=== PATIENT | male | born 1955 | race Two or more races ===

== ENCOUNTER 2021-11-10 14:06 | Emergency (ER) | payer MEDICARE, SELFPAY ==
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
[2021-11-10 14:33] VITALS: BP 132/91; PULSE 94; RESP 18; TEMP 36.8; O2SAT 97; BMI 36.8
[2021-11-10] MEDS: Acetaminophen 325 MG TABLET 975 MG PO (15:27)
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
[2021-11-10] MEDS: Cyclobenzaprine HCl 10 MG TABLET PO (16:40)
== END 2021-11-10 17:35 | disposition home or self-care (01) ==
PROVIDERS: Emergency Provider Student in an Organized Health Care Education/Training Program; PCP Internal Medicine
DX: M54.50 Low back pain, unspecified (principal); M54.6 Pain in thoracic spine; R07.81 Pleurodynia; Z79.899 Other long term (current) drug therapy
CPT/HCPCS: 71101; 99283

== ENCOUNTER 2022-11-07 08:52 | Emergency (ER) | payer OTHER, SELFPAY ==
--- NOTE | ~2022-11-07 | XR_ITS ---
EXAMINATION: XR CHEST CLINICAL INFORMATION: Chest pain COMPARISON: None available. TECHNIQUE: 2 views of the chest were obtained. FINDINGS: No significant abnormality is noted involving the heart, lungs, mediastinum, bony thorax or soft tissues. XR/XR chest 2V IMPRESSION: Unremarkable chest examination.
--- NOTE | 2022-11-07 08:55 | ECG_ITS ---
Test Reason : CP Blood Pressure : / mmHG Vent. Rate : 083 BPM Atrial Rate : 083 BPM P-R Int : 160 ms QRS Dur : 084 ms QT Int : 402 ms P-R-T Axes : 042 -43 057 degrees QTc Int : 472 ms Poor data quality, interpretation may be adversely affected Normal sinus rhythm Left axis deviation Abnormal ECG When compared with ECG of 25-AUG-2012 04:22, No significant change was found Referred By: Generic ED Physician Electronically Signed By:TOMMY LAWSON
[2022-11-07 09:05] VITALS: BP 134/86; PULSE 85; RESP 18; TEMP 36.6; O2SAT 98; BMI 33.2
--- NOTE | 2022-11-07 09:19 | ECG_ITS ---
Test Reason : CP Blood Pressure : / mmHG Vent. Rate : 078 BPM Atrial Rate : 078 BPM P-R Int : 172 ms QRS Dur : 090 ms QT Int : 406 ms P-R-T Axes : 048 -38 048 degrees QTc Int : 462 ms Normal sinus rhythm Left axis deviation Abnormal ECG When compared with ECG of 07-NOV-2022 08:57, No significant change was found Referred By: Generic ED Physician Electronically Signed By:TOMMY LAWSON
--- NOTE | 2022-11-07 09:25 | ED_ITS ---
HPI - Chest Pain General Chief Complaint: Chest Pain Stated Complaint: chest pain Time Seen by Provider: 11/07/22 09:21 Source: patient and certified court interpreter Mode of arrival: ambulatory Limitations: no limitations History of Present Illness HPI narrative: 67 yo Armenian speaking male with history of HLD, anxiety, and asthma who presents to the ER for evaluation of intermittent, nonradiating substernal chest pressure that started this morning when he woke up at 5am. He states the pains come and go and he has been nauseated this morning, no vomiting. He denies associated SOB or diaphoresis. He states the pain is pressure like. He has not had pain like this before. History of normal cardiac catheterization back in the . He is nonsmoker, no hx DM. He states he currently has no chest pain but he is anxious. He is tearful. He last took his klonopin and doxepin yesterday. MD complaint: other (chest pressure and anxiety) Pertinent past history: asthma Onset (ago): hour(s) (4-5) Timing of current episode: episodic Prior episodes: No Onset: during rest Pain location: substernal Pain radiation: none Severity: moderate Quality: heaviness Relieving factors: nothing Context: other (anxiety) Associated symptoms: nausea and other (anxiety) Treatment prior to arrival: none Risk Factors Coronary artery disease risk factors: hyperlipidemia Thoracic aortic dissection risk factors: none Related Data Previous Rx's Medication Instructions Recorded acetaminophen 500 mg tablet 500 mg PO Q6H PRN fever or pain 11/10/21 (Tylenol Extra Strength) #14 tabs cyclobenzaprine 5 mg tablet 5 mg PO Q8H PRN pain (scale score 11/10/21 7-10) 5 days #14 tabs ibuprofen 800 mg tablet 800 mg PO Q8H PRN pain #14 tabs 11/10/21 lidocaine 5 % topical patch 1 patch topical DAILY PRN pain #30 11/10/21 (Lidoderm) ea tramadol 50 mg tablet 50 mg PO Q8H PRN pain, severe #7 11/10/21 tabs Allergies Allergy/AdvReac Type Severity Reaction Status Date / Time No Known Allergies Allergy Verified 11/07/22 09:05 Review of Systems Review of Systems: Yes all other systems are reviewed and are negative PMFSH Social History Social History Advance Directives: Yes Advance Directives on File: No Physical Exam Vital Signs: Vital Signs: Last Vital Signs Temp 98 F 11/07/22 09:05 Pulse 87 11/07/22 10:28 Resp 16 11/07/22 10:28 BP 131/79 11/07/22 10:28 Pulse Ox 96 11/07/22 10:28 O2 Del Method Room Air 11/07/22 10:28 BMI result Body Mass Index 33.2 Appearance: Alert. Oriented X3. No acute distress. Head: normocephalic, atraumatic. Eyes: Pupils equal, round and reactive to light. ENT: Pharynx normal. No tonsillar swelling or exudate. Neck: Normal inspection. Neck supple. CVS: Normal heart rate and rhythm. Pulses normal. Respiratory: No respiratory distress. Breath sounds normal. Abdomen: Soft and nontender. +BS x4 Skin: Skin warm and dry. Normal skin color. Normal skin turgor. No rashes. Extremities: No lower extremity edema. No joint swelling. No calf tenderness. Neuro/psych: Oriented X 3. No motor deficit. No sensory deficit. CN II-XII intact. Normal speech and cognition. Tearful, reporting anxiety Course Reevaluation(s) Reevaluation #1: Patient feeling much better and wants to go home. He does not want to wait for a 2nd troponin. he has been chest pain free in the ER and is feeling better after ativan. his heart score is 3 Comfortable w/ d/c home with plan for outpatient cardiac workup. he will call to arrange. strict return precautions were discussed Time: 10:44 Medications Administered Discontinued Medications Generic Name Dose Route Start Last Admin Trade Name Leeq PRN Reason Stop Dose Admin Lorazepam 1 mg 11/07/22 09:45 11/07/22 10:32 Lorazepam 1 Mg Tablet PO 11/07/22 09:46 1 mg ONCE ONE Administration Medical Decision Making Medical Decision Making MDM Narrative: 67 yo Armenian speaking male with history of HLD, anxiety, and asthma who presents to the ER for evaluation of intermittent, nonradiating substernal chest pressure that started this morning when he woke up at 5am. On arrival to the ER his vital signs are stable and he is chest pain-free. Hears tearful and anxious. He did not take his Klonopin today. His EKG was reviewed with no obvious ischemic changes. His lab workup was unremarkable. He is pending 2nd troponin however patient feels much better after a dose of Ativan and would like to go home. He understands staying for a 2nd troponin is ideal but defers. He states he will follow-up with cardiology as an outpatient. He states he will return to the ER if chest pain returns or feels worse. Comfortable discharge home. diplomatic interpreter/translator used discussed strict return precautions and importance of outpatient follow-up Differential Diagnosis Differential Diagnoses: The differential diagnosis associated with the presentation includes anxiety, ACS, PE, myocarditis, pericarditis, costochondritis, PNA Admission/Observation Consideration of admission/observation: Escalation of care including admis constantine/observation considered Considered observation this patient with HLD, obesity and chest pain. Lab Data MDM Lab Attestation statement: I reviewed the patient's lab results. negative troponin, normal CBC and renal function 11/07/22 09:21 11/07/22 09:21 Labs: Lab Results 11/07/22 11/07/22 11/07/22 Range/Units 09:21 09:21 09:21 WBC 5.1 (4.8-10.8) X10*3/uL RBC 4.64 (4.60-5.80) X10*6/uL Hgb 15.2 (14.0-18.0) g/dl Hct 44.5 (42.0-52.0) % MCV 95.9 (80.0-98.0) fL MCH 32.8 (27.0-33.0) pg MCHC 34.2 (31.0-36.0) g/dl RDW 13.5 (11.0-16.0) % Plt Count 260 (160-400) X10*3/uL MPV 9.9 (9.4-12.4) fL Immature Gran % (Auto) 0.2 (0.0-0.4) % Neut % (Auto) 52.6 (45-73) % Lymph % (Auto) 25.4 (20-40) % [place] % (Auto) 12.0 H (2-11) % Eos % (Auto) 9.4 H (0-4) % Baso % (Auto) 0.4 (0-2) % Lymph # (Auto) 1.3 (1.2-4.9) X10*3/uL [place] # (Auto) 0.6 (0.1-1.2) X10*3/uL Eos # (Auto) 0.5 H (0.0-0.4) X10*3/uL Baso # (Auto) 0.0 (0.0-0.2) X10*3/uL Abs Immat Gran (auto) 0.01 (0.00-0.03) X10*3/uL Absolute Neuts (auto) 2.7 (2.0-8.3) x10*3/uL Absolute Nucleated RBC 0.000 (0.0-0.012) X10*3/uL Nucleated RBC % (auto) 0.0 (0.0-0.2) /100WBC Sodium 141 (135-145) mmol/L Potassium 4.1 (3.3-5.1) mmol/L Chloride 107 (96-108) mmol/L Carbon Dioxide 26 (22-29) mmol/L Anion Gap 12 (12-20) BUN 11 (9-16) mg/dL Creatinine 1.02 (0.5-1.4) mg/dL Estim Creat Clear Calc 77.6 Estimated GFR > 60 Random Glucose 102 (60-115) mg/dL Calcium 9.1 (8.4-10.2) mg/dL Troponin I High Sens < 2.7 (<3.5-35.0) ng/L Independent Interpretation I performed an independent interpretation of an: EKG and Plain X-Ray Interpretation: ekg @ 09:29 - nromal sinus rhythm, HR 78 bpm, normal MD interval, normal QTc,no ST segment elevations or depressions cxr with clear lungs, agree w/ radiology Radiology Impression Discussion of test interpretation with radiology: I have reviewed the radiologist's reading. Radiologist Impression: XR/XR chest 2V IMPRESSION: Unremarkable chest examination. Independent Historian Clinical information obtained from an independent historian. History obtained from or confirmed by: Spouse External Record Review External record reviewed: Outpatient record, Prior outpatient labs and Prior outpatient radiology Chronic Conditions Patient?s care impacted by: Other (anxiety) Scores Heart Score History: -0- slightly suspicious ECG: -0- normal Age: -2- > or = 65 Risk factory: -1- 1 or 2 risk factors Troponin: -0- < or = normal limit Score: 3 Risk: 1.7% Critical Care Time Critical Care Time Critical Care Time: No Discharge Plan Discharge Clinical Impression: Chest pain, Anxiety Patient Disposition: Home, Self-Care Instructions: Chest Pain (DC), Anxiety (ED) Additional Instructions: Your lab work and EKG today were unremarkable. Your chest x-ray was normal. It was encouraged for your to stay for repeat your heart enzyme level but you declined. Recommend following up with your doctor as well as Cardiology. Call for an appo intment. If you develop new or worsening symptoms call 911 or come back to the ER for further evaluation. Goldstein trabajo de laboratorio y goldstein electrocardiograma de hoy fueron normales. Goldstein radiograf?a de t?rax fue normal. Se le alent? a que se quedara para repetir goldstein nivel de enzimas card?acas, adarsh se neg?. Recomiende seguimiento con goldstein m?dico as? hollie con Cardiolog?a. Llame para ruth cydney. Si desarrolla s?ntomas nuevos o que empeoran, llame al 911 o regrese a la micah de emergencias para ruth evaluaci?n adicional. Prescriptions: No Action cyclobenzaprine 5 mg tablet 5 mg PO Q8H PRN (Reason: pain (scale score 7-10)) 5 Days Qty: 14 0RF ibuprofen 800 mg tablet 800 mg PO Q8H PRN (Reason: pain) Qty: 14 0RF lidocaine [Lidoderm] 5 % adhesive patch,medicated 1 patch topical DAILY MDD remove after 12 hours PRN (Reason: pain) Qty: 30 0RF Rx Instructions: leave on most painful area for up to 12 hrs tramadol 50 mg tablet 50 mg PO Q8H PRN (Reason: pain, severe) Qty: 7 0RF acetaminophen [Tylenol Extra Strength] 500 mg tablet 500 mg PO Q6H PRN (Reason: fever or pain) Qty: 14 0RF Referrals: [facility] [Provider Group] (chest pain) Print Language: Armenian
[2022-11-07 09:31] LABS: MANUAL DIFF FLAG NO
[2022-11-07 09:33] LABS: Basophils Percent Auto 0.4 % (0-2); Eosinophils Absolute Auto 0.5 X10*3/uL (0.0-0.4); Eosinophils Percent Auto 9.4 % (0-4); Hematocrit 44.5 % (42.0-52.0); Hemoglobin 15.2 g/dl (14.0-18.0); Imm Gran Abs Auto 0.01 X10*3/uL (0.00-0.03); Imm Gran Pct Auto 0.2 % (0.0-0.4); Lymphocytes Absolute Auto 1.3 X10*3/uL (1.2-4.9); Lymphocytes Percent Auto 25.4 % (20-40); Mean Corpuscular HGB Conc 34.2 g/dl (31.0-36.0); Mean Corpuscular Hemoglobin 32.8 pg (27.0-33.0); Mean Corpuscular Volume 95.9 fL (80.0-98.0); Mean Platelet Volume 9.9 fL (9.4-12.4); Monocytes Absolute Auto 0.6 X10*3/uL (0.1-1.2); Neutrophils Absolute Auto 2.7 x10*3/uL (2.0-8.3); Neutrophils Percent Auto 52.6 % (45-73); Platelet Count 260 X10*3/uL (160-400); Red Blood Count 4.64 X10*6/uL (4.60-5.80); Red Cell Distribution Width 13.5 % (11.0-16.0); White Blood Count 5.1 X10*3/uL (4.8-10.8)
[2022-11-07 09:45] LABS: Anion Gap 12 (12-20); Blood Urea Nitrogen 11 mg/dL (9-16); Calcium 9.1 mg/dL (8.4-10.2); Carbon Dioxide 26 mmol/L (22-29); Chloride 107 mmol/L (96-108); Creatinine Clr Calc Pharmacy 77.6; Estimated Glomerular Filt Rate > 60; Glucose Random 102 mg/dL (60-115); Potassium 4.1 mmol/L (3.3-5.1); Sodium 141 mmol/L (135-145)
[2022-11-07 09:55] LABS: Troponin-I High Sensitivity < 2.7 ng/L (<3.5-35.0)
[2022-11-07 10:28] VITALS: BP 131/79; PULSE 87; RESP 16; O2SAT 96
[2022-11-07] MEDS: LORazepam 1 MG TABLET PO (10:32)
== END 2022-11-07 10:52 | disposition home or self-care (01) ==
PROVIDERS: Emergency Provider Student in an Organized Health Care Education/Training Program
DX: R07.9 Chest pain, unspecified (principal); F41.9 Anxiety disorder, unspecified; E78.5 Hyperlipidemia, unspecified; Z79.899 Other long term (current) drug therapy
CPT/HCPCS: 36415; 71046; 80048; 84484; 85025; 93005; 99283; 99284

== ENCOUNTER 2022-11-21 10:46 | Emergency (ER) | payer OTHER, SELFPAY ==
[2022-11-21 10:49] VITALS: BP 129/76; PULSE 100; RESP 18; TEMP 36.2; O2SAT 100; BMI 33.2
--- NOTE | 2022-11-21 12:36 | ED.GENADULT ---
HPI - General Adult General Chief complaint: Back Pain/Injury Stated complaint: R flank pain Time Seen by Provider: 11/21/22 11:20 Source: patient Mode of arrival: ambulatory Limitations: no limitations History of Present Illness HPI narrative: Patient is a 67-year-old male with complaint of right flank pain for 1 week, worse with movement. Denies any falls, injury or other trauma. Denies any radiation of pain to his legs. Does report some urinary frequency, denies dysuria or hematuria. Denies fevers. Any numbness or tingling to his legs. Denies any saddle anesthesia or bowel or bladder incontinence. Has been using naproxen with little relief. Denies any abdominal pain, nausea, vomiting, diarrhea, or constipation. Denies any cough, shortness of breath, chest pain. Denies any calf pain or swelling. Denies any hemoptysis. Denies recent surgery or immobilization. MD complaint: Right flank pain Onset (ago): day(s) Location: back Radiation: non-radiation Severity: severe Quality: aching and dull Pain Consistency: constant Relieving factors: rest Exacerbating factors: movement Associated symptoms: other (Urinary frequency) Treatments prior to arrival: NSAID Related Data Previous Rx's Medication Instructions Recorded acetaminophen 500 mg tablet 500 mg PO Q6H PRN fever or pain 11/10/21 (Tylenol Extra Strength) #14 tabs cyclobenzaprine 5 mg tablet 5 mg PO Q8H PRN pain (scale score 11/10/21 7-10) 5 days #14 tabs ibuprofen 800 mg tablet 800 mg PO Q8H PRN pain #14 tabs 11/10/21 lidocaine 5 % topical patch 1 patch topical DAILY PRN pain #30 11/10/21 (Lidoderm) ea tramadol 50 mg tablet 50 mg PO Q8H PRN pain, severe #7 11/10/21 tabs cyclobenzaprine 5 mg tablet 5 mg PO TID PRN muscle spasm #12 11/21/22 tabs Allergies Allergy/AdvReac Type Severity Reaction Status Date / Time No Known Allergies Allergy Verified 11/21/22 10:49 Review of Systems Review of Systems: As per HPI. Yes all other systems are reviewed and are negative Constitutional: Constitutional: Reports as per HPI [facility] Social History Social History Advance Directives: No Advance Directives Information Provided: No Physical Exam ED Vital Signs: Vital Signs - 24 hr 11/21/22 10:49 Temperature 97.1 F Pulse Rate 100 Respiratory Rate 18 Blood Pressure 129/76 Pulse Oximetry 100 Oxygen Delivery Method Room Air BMI result Body Mass Index 33.2 Vital signs have been reviewed and appear to be correct. Blood pressure normal. Heart rate normal. Respiratory rate normal. Temperature normal. Oxygen saturation normal. Const General: cooperative, healthy appearing and no acute distress Orientation/consciousness: oriented to person, oriented to place, oriented to time and patient oriented x3 Limitations: no limitations HENMT Head: Yes normocephalic and Yes atraumatic Ears: external ears normal General nose exam: Normal external nose present Face and sinus: Yes face symmetric Mouth: oropharynx normal and moist mucous membranes Throat: Yes uvula midline Eyes Pupils: Equal, round and reactive pupils present Neck Neck: Yes normal visual inspection and Yes supple Resp Effort & Inspection: normal respiratory effort and able to speak in complete sentences Auscultation: clear to auscultation bilaterally Cardio Rate: regular rate Rhythm: regular rhythm Heart sounds: S1 normal heart sound present and S2 normal heart sound present GI Inspection: Yes normal to inspection Palpation (GI): Soft to palpation, nontender, no guarding and No Rebound tenderness present Auscultation: normoactive bowel sounds General: Yes CVA tenderness on the right Back/Spine/Pelvis Back: CVA tenderness Thoracic/Lumbar Spine: thoracic and lumbar spine normal to inspection, thoraco-lumbar ROM normal, pain with thoraco-lumbar ROM and paraspinal muscle tenderness on the right in the mid thoracic Pelvis: no pain with anterior-posterior compression and no pain with lateral compression Skin General skin exam: elasticity normal and turgor normal Neuro General: oriented to person, oriented to place, oriented to time, patient oriented x3, moves all extremities, no focal motor deficits and CN's II-XI intact bilaterally Cranial nerves: Yes Equal, round and reactive pupils present Cognition (Neuro): normal cognition Extrem General: Yes full ROM, Yes no pedal edema and Yes no calf tenderness Psych Mental Status: mental status grossly normal Affect: normal affect Thought process: Normal thought process present Medical Decision Making Medical Decision Making MDM Narrative: Patient is a 67-year-old male with complaint of right flank pain for 1 week, worse with movement. On exam patient is awake, A+Ox3, VS WNL, afebrile, normal neurological exam without focal deficits, R CVA tenderness as well as surrounding right sided paraspinal tenderness, full ROM, no midline tenderness. Given reported symptoms and physical exam findings, differential includes muscle strain, UTI/pyelonephritis. Unlikely fracture as patient denies any injury. Unlikely PE as Wells score is low risk. Unlikely epidural abscess, cord compression, cauda equina, osteomyelitis, malignancy or mass, herniated disc, AAA, retroperitoneal hemorrhage. No signs of infection on UA so unlikely UTI/pyelo. Given reported history and physical exam findings, feel symptoms are likely related to muscle strain, will discharge patient home with muscle relaxer, advised gentle stretching exercises, continue with NSAID. Instructed patient to follow-up with primary care provider. Return precautions discussed at bedside. Patient verbalized understanding of and agreement with plan. Differential Diagnosis Differential Diagnoses: The differential diagnosis associated with the presentation includes As above Lab Data MDM Lab Attestation statement: I reviewed the patient's lab results. No evidence of UTI or pyelonephritis on UA Labs: Lab Results 11/21/22 Range/Units 12:03 Urine Color Yellow Urine Appearance Clear Urine pH 7.5 (5.0-9.0) Ur Specific Bevier 1.015 (1.005-1.025) Urine Protein Negative (Neg-Trace) mg/dL Urine Glucose (UA) Negative (Negative) mg/dL Urine Ketones Negative (Negative) mg/dL Urine Blood Negative (Negative) Urine Nitrite Negative (Negative) Ur Leukocyte Esterase Negative (Negative) External Record Review External record reviewed: Inpatient record, Office record and Outpatient record Prescription Management I considered prescription management with: Other (Flexeril) Discharge Plan Discharge Clinical Impression: Strain of mid-back Patient Disposition: Home, Self-Care Instructions: Muscle Strain (DC), Lower Back Exercises (ED), Thoracic Back Strain (ED), Core Strengthening Exercises (ED) Additional Instructions: You have been evaluated in the emergency department today for right sided back pain. Your evaluation did not find evidence of medical conditions requiring emergent intervention at this time. Please rest, ice, and resume normal activities as tolerated. We recommend you take 600mg ibuprofen every 6 hours or 650mg Tylenol every 6 hours as needed for pain. If Needed you can alternate these medications as they take 1 medication every 3 hours. For instance at noon take ibuprofen, then at 3:00 p.m. take Tylenol, then at 6:00 p.m. take ibuprofen. You are also being prescribed a muscle relaxer for muscle spasms which you may take every 8 hours as needed. Please schedule an appointment for follow-up with your primary care provider this week. Return to the emergency department if you experience worsening pain, numbness, tingling, or any other concerning symptoms. Prescriptions: New cyclobenzaprine 5 mg tablet 5 mg PO TID PRN (Reason: muscle spasm) Qty: 12 0RF No Action cyclobenzaprine 5 mg tablet 5 mg PO Q8H PRN (Reason: pain (scale score 7-10)) 5 Days Qty: 14 0RF ibuprofen 800 mg tablet 800 mg PO Q8H PRN (Reason: pain) Qty: 14 0RF lidocaine [Lidoderm] 5 % adhesive patch,medicated 1 patch topical DAILY MDD remove after 12 hours PRN (Reason: pain) Qty: 30 0RF Rx Instructions: leave on most painful area for up to 12 hrs tramadol 50 mg tablet 50 mg PO Q8H PRN (Reason: pain, severe) Qty: 7 0RF acetaminophen [Tylenol Extra Strength] 500 mg tablet 500 mg PO Q6H PRN (Reason: fever or pain) Qty: 14 0RF
== END 2022-11-21 13:05 | disposition home or self-care (01) ==
PROVIDERS: Emergency Provider Emergency Medicine Emergency Medical Services; PCP Internal Medicine
DX: R10.9 Unspecified abdominal pain (principal); S39.012A Strain of muscle, fascia and tendon of lower back, initial encounter; X58.XXXA Exposure to other specified factors, initial encounter; Y93.9 Activity, unspecified; Y92.9 Unspecified place or not applicable; Y99.9 Unspecified external cause status
CPT/HCPCS: 81003; 99283

== ENCOUNTER 2022-12-13 07:51 | Emergency (ER) | payer OTHER, SELFPAY ==
--- NOTE | ~2022-12-13 | XR_ITS ---
EXAMINATION: XR ELBOW, LEFT CLINICAL INFORMATION: Abdominal pain COMPARISON: None available. TECHNIQUE: AP, lateral, and oblique views of the left elbow. FINDINGS: No acute visible fracture or dislocation. Degenerative arthropathy with punctate periarticular osteophyte along the medial condyle. Joint spaces and alignment are otherwise maintained. No large elbow joint effusion. Soft tissues are unremarkable. XR/XR elbow LT min 3V IMPRESSION: 1. No acute visible fracture or dislocation. 2. Degenerative arthropathy.
--- NOTE | ~2022-12-13 | XR_ITS ---
EXAMINATION: XR SHOULDER, LEFT CLINICAL INFORMATION: Left shoulder pain COMPARISON: Left shoulder radiograph from 05/21/2013 TECHNIQUE: Four views of the left shoulder. FINDINGS: No acute visible fracture or dislocation. Degenerative changes of the glenohumeral and acromioclavicular joints. Joint spaces and alignment are otherwise maintained. Soft tissues are unremarkable. Visualized portions of the left chest are unremarkable XR/XR shoulder LT min 2V IMPRESSION: 1. No acute visible fracture or dislocation. 2. Degenerative changes of the glenohumeral and acromioclavicular joints.
[2022-12-13 07:55] VITALS: BP 141/84; PULSE 84; RESP 14; TEMP 36.6; O2SAT 96
[2022-12-13 08:08] VITALS: BP 132/76; PULSE 86; RESP 16; TEMP 36.5; O2SAT 97; BMI 31.2
--- NOTE | 2022-12-13 08:10 | ED.GENADULT ---
HPI - General Adult General Chief complaint: Extremity Injury, Upper Stated complaint: L elbow pain Time Seen by Provider: 12/13/22 07:54 Source: patient Mode of arrival: ambulatory Limitations: no limitations History of Present Illness HPI narrative: patient is a 67-year-old male with no known medical history presenting to the emergency department for pain in his left elbow patient reports that he has a bump on his elbow that has been growing. Patient reports the bump has been there for few days. patient reports that hurts more when he moves his elbow, when he moves his 3rd 4th and 5th fingers on his left hand. Upon further questioning patient reports he also has some sharp pain on the anterior aspect of his left shoulder. Patient reports that this pain occurs for a few seconds multiple times a day percipitated by movment. Patient reports he has full range of motion. Patient denies fever, chills, headache, vision changes, nausea, vomiting, abdominal pain, numbness, tingling, blunt trauma Related Data Previous Rx's Medication Instructions Recorded acetaminophen 500 mg tablet 500 mg PO Q6H PRN fever or pain 11/10/21 (Tylenol Extra Strength) #14 tabs cyclobenzaprine 5 mg tablet 5 mg PO Q8H PRN pain (scale score 11/10/21 7-10) 5 days #14 tabs ibuprofen 800 mg tablet 800 mg PO Q8H PRN pain #14 tabs 11/10/21 lidocaine 5 % topical patch 1 patch topical DAILY PRN pain #30 11/10/21 (Lidoderm) ea tramadol 50 mg tablet 50 mg PO Q8H PRN pain, severe #7 11/10/21 tabs cyclobenzaprine 5 mg tablet 5 mg PO TID PRN muscle spasm #12 11/21/22 tabs naproxen 500 mg tablet 500 mg PO BID PRN pain #14 tabs 12/13/22 prednisone 20 mg tablet 20 mg PO DAILY 5 days #5 tabs 12/13/22 Allergies Allergy/AdvReac Type Severity Reaction Status Date / Time No Known Allergies Allergy Verified 11/21/22 10:49 Review of Systems Review of Systems: Constitutional : No Weight loss, No Fever, No Chills, No Fatigue, No Malaise ENT/Mouth : No sore throat, No Rhinorrhea Eyes: No Eye Pain, No Swelling, No Redness Cardiovascular : No Chest Pain, No SOB, No Dyspnea on Exertion, No Orthopnea, No Edema, No Palpitations Respiratory : No Cough, No Sputum, No Wheezing Gastrointestinal : No Nausea, No Vomiting, No Diarrhea, No Constipation, No abdominal Pain, No Hematochezia, No Melena Genitourinary : No Dysuria, No Urinary Frequency, No Hematuria, Musculoskeletal : + joint pain, No Myalgias, + Joint Swelling Skin : No Skin Lesions, No rash Neuro : No Weakness, No Numbness, No Dizziness, No Headache Psych : No Anxiety/Panic, No Depression Heme/Lymph: No Bruising, No Bleeding,No Lymphadenopathy Endocrine : No Polyuria, No Polydipsia All other systems reviewed and are negative Yes all other systems are reviewed and are negative [facility] Past Medical History Attestation statement: The following information was validated with the patient. Source: old records reviewed and nursing notes reviewed Social History Social History Alcohol intake: current Alcohol intake frequency: 0-2 drinks per day Alcohol type: beer Smoked in Last 30 Days: No Use of substances other than those prescribed or required for medical reasons: No Advance Directives: No Advance Directives Information Provided: No Physical Exam ED Vital Signs: Vital Signs - 24 hr 12/13/22 07:55 12/13/22 08:08 Temperature 97.9 F 97.7 F Pulse Rate 84 86 Respiratory Rate 14 16 Blood Pressure 141/84 H 132/76 Pulse Oximetry 96 97 Oxygen Delivery Method Room Air Room Air BMI result Body Mass Index 31.2 vss Appearance: Alert.? Oriented X3.? No acute distress.? Head: Normocephalic, atraumatic, no step-offs or deformities Eyes: Pupils equal, round and reactive to light.? Neck: Normal inspection.? Neck supple.? CVS: Normal heart rate and rhythm.? Pulses normal.? Respiratory: No respiratory distress.? Breath sounds normal.? Abdomen: Soft and nontender.? Skin: Skin warm and dry.? Normal skin color.? Normal skin turgor.? Extremities: 5/5 strength to bilateral upper and lower extremities + L elbow, ttp, no bump, nodule, mass or abscess appreciated. No effusion, errythema or warmth to elbows b/l. Full painless ROM b/l to elbow and shoulder. 2+ radial pulses equal and bilateral. No laxity or distracting injuries. Back: No midline tenderness, no C-spine tenderness, full range of motion, no CVA tenderness bilaterally Neuro: Oriented X 3.? No motor deficit.? No sensory deficit. CN 2-12 intact Course Reevaluation(s) Reevaluation #1: left shoulder with no acute fractures or dislocation degenerative changes noted to the glenohumeral in at acromioclavicular joint. Patient to be discharged home with prednisone, naproxen. Advised orthopedic follow-up. Educated patient on diagnosis and treatment plan, answered all question, patient verbalizes understanding. At this time patient will be discharged home, advised to return with new or worsening symptoms. Educated on worrisome signs and symptoms and when to return. At this time I feel comfortable discharge home. Time: 09:06 Medical Decision Making Medical Decision Making [facility] Narrative: 09 67 year old male presents w/ L elbow and shoulder pain for weeks worsening over the past few days PE - + L elbow, ttp, no bump, nodule, mass or abscess appreciated. No effusion, errythema or warmth to elbows b/l. Full painless ROM b/l to elbow and shoulder. 2+ radial pulses equal and bilateral. No laxity or distracting injuries. Concerns Inflammatory arthritis, gout. No signs of fracture, dislocation, septic joint, neurovascular compromise arterial venous occlusion. No signs of fracture dislocation. Plan imaging. Differential Diagnosis Differential Diagnoses: The differential diagnosis associated with the presentation includes Concerns Inflammatory arthritis, gout. No signs of fracture, dislocation, septic joint, neurovascular compromise arterial venous occlusion. No signs of fracture dislocation. Admission/Observation Consideration of admission/observation: Escalation of care including admission/observation considered Unlikely Independent Interpretation I performed an independent interpretation of an: Plain X-Ray (XR/XR shoulder LT min 2V IMPRESSION: 1. No acute visible fracture or dislocation. 2. Degenerative changes of the glenohumeral and acromioclavicular joints.) Radiology Impression Discussion of test interpretation with radiology: I have reviewed the radiologist's reading. Core Measures AMI core measures followed: Yes Measure exclusions: not indicated Discharge Plan Discharge Clinical Impression: Elbow pain, Left shoulder pain Patient Disposition: Home, Self-Care Instructions: Arthralgia (ED), Arm Pain (ED) Additional Instructions: Take your medications as prescribed. If you were prescribed antibiotics today, it is important that you take your medication to their entirety, do not skip any doses, do not finish them early. Follow-up with your primary care provider this week. Return to the emergency department with new or worsening symptoms. Such as fevers, chills, chest pain, shortness of breath, nausea, vomiting, dizziness, headache, vision changes, lethargy In case of emergency call 911 you can take ibuprofen every 6 hours, Tylenol every 4 as needed for pain or discomfort. XR/XR shoulder LT min 2V IMPRESSION: 1.? No acute visible fracture or dislocation. 2.? Degenerative changes of the glenohumeral and acromioclavicular joints. Prescriptions: New naproxen 500 mg tablet 500 mg PO BID PRN (Reason: pain) Qty: 14 0RF Rx Instructions: Take with food prednisone 20 mg tablet 20 mg PO DAILY 5 Days Qty: 5 0RF No Action cyclobenzaprine 5 mg tablet 5 mg PO Q8H PRN (Reason: pain (scale score 7-10)) 5 Days Qty: 14 0RF ibuprofen 800 mg tablet 800 mg PO Q8H PRN (Reason: pain) Qty: 14 0RF lidocaine [Lidoderm] 5 % adhesive patch,medicated 1 patch topical DAILY MDD remove after 12 hours PRN (Reason: pain) Qty: 30 0RF Rx Instructions: leave on most painful area for up to 12 hrs tramadol 50 mg tablet 50 mg PO Q8H PRN (Reason: pain, severe) Qty: 7 0RF acetaminophen [Tylenol Extra Strength] 500 mg tablet 500 mg PO Q6H PRN (Reason: fever or pain) Qty: 14 0RF cyclobenzaprine 5 mg tablet 5 mg PO TID PRN (Reason: muscle spasm) Qty: 12 0RF Referrals: [facility] [place] [facility] [Provider Group] - 2 weeks Jorge Luis Falk MD [Primary Care Provider] - 2 days Stand Alone Forms: Work/School Release
--- NOTE | 2022-12-13 08:36 | PC.NURSE ---
pt axox4, VSS, respirations even and unlabored, sats 96% RA, c/o L. elbow pain and swelling; L. shoulder pain x 3 wks. pt denies injuries. pt denies numbness/tingling in BUE. pt denies cp/sob/n/v. pt denies having questions concerns at this time; call ho within reach.
== END 2022-12-13 09:14 | disposition home or self-care (01) ==
PROVIDERS: Emergency Provider Emergency Medicine; PCP Internal Medicine
DX: M25.522 Pain in left elbow (principal); M25.512 Pain in left shoulder
CPT/HCPCS: 73030; 73080; 99283; 99284

== ENCOUNTER 2023-01-20 09:02 | Outpatient (AMB) | payer OTHER, SELFPAY ==
--- NOTE | 2023-01-20 09:21 | A.OFFVIS_ITS ---
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 States he first noticed he had severe swelling in his elbow about 1 month ago. No injury he can recall. States he has been putting topical cream for swelling with little improvement. Seen in ED 12/13/22 where xrays and was referred to our office for further evaluation. Currently states his swelling has improved, has pain when lifting and pushing. No prior treatment. Hx of CTR and trigger release in 2021 for B/L hands. Allergies No Known Allergies Allergy (Verified 01/20/23 09:28) Medication List - Last Reconciled 01/20/23 by Lucy Lopez MD acetaminophen (Tylenol Extra Strength) 500 mg PO Q6H PRN cyclobenzaprine 5 mg PO Q8H PRN 5 days cyclobenzaprine 5 mg PO TID PRN ibuprofen 800 mg PO Q8H PRN lidocaine 5% (Lidoderm) 1 patch topical DAILY PRN MDD remove after 12 hours naproxen 500 mg PO BID PRN prednisone 20 mg PO DAILY 5 days tramadol 50 mg PO Q8H PRN HPI HPI Comments History of Present Illness Details Went to ER 1 month ago. No inciting injuries per patient. Acute swelling. Swelling has gone down now. Now pain on left lateral elbow, pointing to left extensor tendons. In the ER, he was given steroid and xray done. No numbness. Denies weakness despite pain. Treatment done so far: NSAIDs - naproxen, motrin He also mentions oxycodone (old, prescribed by PCP). 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 MSK: Inspection reveals appropriate head and neck positioning. No pain with palpation over the neck musculature. Cervical ROM was full. Spurling's sign negative. Bilateral shoulder ROM WNL. No ligamentous laxity or crepitance. No increased effusion. Hawkin's test is negative. No joint effusion noted. No deformity noted. No intrinsic hand weakness noted. No atrophy noted. Bonita test negative. Carpal compression test negative. Tinel sign negative. Tender along the common extensor tendons proximal to the left lateral epicondyle. No effusion or swelling. No tenderness along medial epicondyle or olecranon. Increased pain on lateral epicondyle with resisted wrist extension. Strength is 5/5 in all muscle groups tested. No increased tone noted. Neurological: Neurologic examination of the upper and lower extremities was nonfocal with intact sensation, muscle stretch reflexes and without focal motor deficits . Gonzalez?s negative bilaterally. Gait is non-antalgic without loss of balance. Office Procedures Tendon Injection Tendon Injection Details: Common extensor tendon injection, left Consent obtained. Patient sits with supported elbow on the table at right angle and forearm supinated. Tender area along common extensor tendon slightly distal to lateral epicondyle identified. Area prepped in sterile manner. 25 gauge 0.5 in. needle inserted at tender area, injecting solution containing 10 mg Kenalog and 0.75 mL 2% lidocaine. Patient tolerated procedure well without complications. [id number] Tendon Origin/Insertion Injection All charges added?: Procedure code (CPT) selection complete Results Reviewed Results Reviewed: I independently reviewed the results of the following: Left elbow x-ray -preserved joint spaces EXAMINATION: XR ELBOW, LEFT CLINICAL INFORMATION: Abdominal pain COMPARISON: None available. TECHNIQUE: AP, lateral, and oblique views of the left elbow. FINDINGS: No acute visible fracture or dislocation. Degenerative arthropathy with punctate periarticular osteophyte along the medial condyle. Joint spaces and alignment are otherwise maintained. No large elbow joint effusion. Soft tissues are unremarkable. XR/XR elbow LT min 3V IMPRESSION: 1. No acute visible fracture or dislocation. 2. Degenerative arthropathy. EXAMINATION: XR SHOULDER, LEFT CLINICAL INFORMATION: Left shoulder pain COMPARISON: Left shoulder radiograph from 05/21/2013 TECHNIQUE: Four views of the left shoulder. FINDINGS: No acute visible fracture or dislocation. Degenerative changes of the glenohumeral and acromioclavicular joints. Joint spaces and alignment are otherwise maintained. Soft tissues are unremarkable. Visualized portions of the left chest are unremarkable XR/XR shoulder LT min 2V IMPRESSION: 1. No acute visible fracture or dislocation. 2. Degenerative changes of the glenohumeral and acromioclavicular joints. I reviewed records from the following: ER, PCP Assessment & Plan Assessment & Plan (1) Left tennis elbow: Code(s): M77.12 - Lateral epicondylitis, left elbow Plan Continues to have left common extensor tendinopathy or commonly called Tennis elbow. Despite conservative management with NSAIDs and oral prednisone. Advised relative rest and ice. Avoid repetitive extension movement of the elbow. We will give him a counterforce brace to use during the day. He is in so much pain today that he would like to trial injection today. Precautions discussed. No heavy lifting for 24 hours. Assessment and plan discussed with patent, and patient was agreeable. All questions were answered thoroughly. follow-up in 4 weeks. Call if any problems or questions. Orders: Orders AMB Injection-Tendon Today M77.12 - Lateral epicondylitis, left elbow Coding Level of Care Code New Pt Level 4 (23019) Diagnoses Left tennis elbow M77.12 CPT Codes Tendon Injection - Tendon Injection 2: [id number] Tendon Origin/Insertion Injection ([id number])
[2023-01-20 09:22] VITALS: BMI 31.2
== END 2023-01-20 09:51 | disposition home or self-care (01) ==
PROVIDERS: PCP Internal Medicine; Visit Provider Physical Medicine & Rehabilitation
DX: M77.12 Lateral epicondylitis, left elbow (principal)
CPT/HCPCS: 20551; 99204

== ENCOUNTER → 2023-01-20 09:02 | Outpatient (BNVA) | payer OTHER, SELFPAY | PROVIDERS: PCP Internal Medicine; Visit Provider Physical Medicine & Rehabilitation | DX: M77.12 Lateral epicondylitis, left elbow (principal) | CPT/HCPCS: 20551; 99202; J3301 ==

== ENCOUNTER 2023-07-08 19:12 | Emergency (ER) | payer OTHER, SELFPAY ==
--- NOTE | ~2023-07-08 | XR_ITS ---
EXAMINATION: XR HAND/WRIST, RIGHT CLINICAL INFORMATION: Laceration. Rule out foreign body. COMPARISON: None TECHNIQUE: PA, lateral, and oblique views of the right hand and wrist. FINDINGS: Healed fracture of the proximal phalanx of the fifth finger. No acute fracture or dislocation. Arthritis at the first [facility] and trapezoid trapezium scaphoid joints. No soft tissue foreign body. XR/XR hand wrist RT IMPRESSION: No soft tissue foreign body.
[2023-07-08 19:41] VITALS: BP 137/84; PULSE 100; RESP 16; TEMP 36.9; O2SAT 95; BMI 30.9
--- NOTE | 2023-07-08 19:48 | ED.SKABFB ---
HPI - Skin/Abscess/Foreign Bdy General Chief complaint: Wound/Laceration Stated complaint: Laceration to right Time Seen by Provider: 07/08/23 20:25 Source: patient Mode of arrival: ambulatory Limitations: no limitations History of Present Illness HPI narrative: Patient comes to emergency room complaining of a 1 in laceration to the right palm. Patient states that he was pushing a refrigerator, there was a long piece of metal protruding from the Fridge and he accidentally lacerated his palm. Patient states that he does not know if he is up-to-date with his tetanus shot but is willing to get a booster. Related Data Previous Rx's Medication Instructions Recorded acetaminophen 500 mg tablet 500 mg PO Q6H PRN fever or pain 11/10/21 (Tylenol Extra Strength) #14 tabs cyclobenzaprine 5 mg tablet 5 mg PO Q8H PRN pain (scale score 11/10/21 7-10) 5 days #14 tabs ibuprofen 800 mg tablet 800 mg PO Q8H PRN pain #14 tabs 11/10/21 lidocaine 5 % topical patch 1 patch topical DAILY PRN pain #30 11/10/21 (Lidoderm) ea tramadol 50 mg tablet 50 mg PO Q8H PRN pain, severe #7 11/10/21 tabs cyclobenzaprine 5 mg tablet 5 mg PO TID PRN muscle spasm #12 11/21/22 tabs naproxen 500 mg tablet 500 mg PO BID PRN pain #14 tabs 12/13/22 prednisone 20 mg tablet 20 mg PO DAILY 5 days #5 tabs 12/13/22 Allergies Allergy/AdvReac Type Severity Reaction Status Date / Time No Known Allergies Allergy Verified 01/20/23 09:28 Review of Systems Review of Systems: Constitutional : No Weight loss, No Fever, No Chills, No Night Sweats, No Fatigue, No Malaise ENT/Mouth : No Hearing loss, No Ear Pain, No Nasal Congestion, No Sinus Pain, No Hoarseness, No sore throat, No Rhinorrhea, No Swallowing Difficulty Eyes: No Eye Pain, No Swelling, No Redness, No Foreign Body, No Discharge, No Vision Changes Cardiovascular : No Chest Pain, No SOB, No Dyspnea on Exertion, No Orthopnea, No Edema, No Palpitations Respiratory : No Cough, No Sputum, No Wheezing, No Smoke Exposure, No Dyspnea Gastrointestinal : No Nausea, No Vomiting, No Diarrhea, No Constipation, No abdominal Pain, No Hematochezia, No Melena Genitourinary : no irregular bleeding, No Dysuria, No Urinary Frequency, No Hematuria, No Urinary Incontinence, No Urgency, No Flank Pain, No Urinary Flow Changes, No Hesitancy Musculoskeletal : No joint pain, No Myalgias, No Joint Swelling Skin : Patient has a 1 in laceration to the right palm Neuro : No Weakness, No Numbness, No Paresthesias, No Loss of Consciousness, No Dizziness, No Headache Psych : No Anxiety/Panic, No Depression, No SI/HI/AH/VH, No Social Issues, Heme/Lymph: No Bruising, No Bleeding,No Lymphadenopathy Endocrine : No Polyuria, No Polydipsia, No Temperature Intolerance [facility] Social History Social History (Updated 01/20/23 @ 09:29 by Brandy Blackwell [facility]) Alcohol intake: current Alcohol intake frequency: 0-2 drinks per day Alcohol type: beer Advance Directives: No Advance Directives Information Provided: No Current occupational status: retired and disabled 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 Oriented X3. No acute distress. Eyes: Pupils equal, round and reactive to light. ENT: Pharynx normal. Neck: Normal inspection. Neck supple. No lymph nodes noted. No crepitus CVS: Normal heart rate and rhythm. Pulses normal. Normal S1 and S2 Respiratory: No respiratory distress. Breath sounds normal. No Wheezing. No rales Abdomen: Soft and nontender. No rigidity. No distention. Skin: Skin warm and dry. Normal skin color. Normal skin turgor. There is a 1 in laceration to the right palm. Extremities: No lower extremity edema. No Lacerations. No Rash, laceration as above, patient is able to flex and extend all fingers of the hand. Neuro: Oriented X 3. No motor deficit. No sensory deficit. Moving all extremities. No slurred speech. CN 2 through 12 grossly intact Psych: calm, cooperative, normal affect Course Course Course Narrative: RME:?68 yo czech speaking male here for eval of laceration to right palm occurring at 1600 today. states he was pushing his refrigerator when a metal piece that =was protruding out of the back cut the palm of his hand. reports washing the laceration out immediately. tetanus not UTD. tdap update +/- repair Full HPI, ROS and PE to be performed by the primary ED provider. Medications Administered Discontinued Medications Generic Name Dose Route Start Last Admin Trade Name Freq PRN Reason Stop Dose Admin Lidocaine HCl 4 ml 07/08/23 20:32 07/08/23 21:06 Lidocaine Hcl 2% 2 Ml Vial INFILTRATI 07/08/23 20:33 4 ml ONCE ONE Administration Medical Decision Making Medical Decision Making MDM Narrative: Patient has a 1 in laceration to the right palm. The injury was cleaned thoroughly, lidocaine was applied 2% no epinephrine. Three stitches. Patient tolerated well the procedure. Patient was given a Tdap booster -my interpretation of x-ray: No foreign body visualized Independent Interpretation I performed an independent interpretation of an: Plain X-Ray Radiology Impression Discussion of test interpretation with radiology: I have reviewed the radiologist's reading. Radiologist Impression: Healed fracture of the proximal phalanx of the fifth finger. No acute fracture or dislocation. 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 No soft tissue foreign body. XR/XR hand wrist RT IMPRESSION: No soft tissue foreign body. Procedures Laceration Laceration 1: Site: hand Side (If applicable): right Size (cm): 2.5 Description: linear Depth: simple, single layer Local Anesthetic: lidocaine 1% Amount of anesthesia used (mL): 4 Pre-repair: wound explored and irrigated extensively Skin layer closed with: nylon Size (cm): 3-0 Number of sutures: 3 Technique: simple, interrupted Discharge Plan Discharge Clinical Impression: Laceration Patient Disposition: Home, Self-Care Instructions: Laceration (ED) Additional Instructions: Your stitches need to be removed in 7-10 days. It can be done at Urgent Care, with your primary care doctor or here in the hospital. If you see any signs of infection such as redness, pus drainage, if you have fever chills, please return to the emergency room. Please follow-up with your primary care physician tomorrow. If you have any worsening or new symptoms, please return to the emergency room or call 911 Prescriptions: No Action cyclobenzaprine 5 mg tablet 5 mg PO Q8H PRN (Reason: pain (scale score 7-10)) 5 Days Qty: 14 0RF ibuprofen 800 mg tablet 800 mg PO Q8H PRN (Reason: pain) Qty: 14 0RF lidocaine [Lidoderm] 5 % adhesive patch,medicated 1 patch topical DAILY MDD remove after 12 hours PRN (Reason: pain) Qty: 30 0RF Rx Instructions: leave on most painful area for up to 12 hrs tramadol 50 mg tablet 50 mg PO Q8H PRN (Reason: pain, severe) Qty: 7 0RF acetaminophen [Tylenol Extra Strength] 500 mg tablet 500 mg PO Q6H PRN (Reason: fever or pain) Qty: 14 0RF cyclobenzaprine 5 mg tablet 5 mg PO TID PRN (Reason: muscle spasm) Qty: 12 0RF naproxen 500 mg tablet 500 mg PO BID PRN (Reason: pain) Qty: 14 0RF Rx Instructions: Take with food prednisone 20 mg tablet 20 mg PO DAILY 5 Days Qty: 5 0RF
[2023-07-08] MEDS: Acetaminophen 325 MG TABLET 975 MG PO (21:15)
[2023-07-08] MEDS: Diphth,Pertus(ACell),Tet Adult 0.5 ML SYRINGE IM (21:15)
== END 2023-07-08 21:21 | disposition home or self-care (01) ==
PROVIDERS: Emergency Provider Emergency Medicine; PCP Internal Medicine
DX: S61.421A Laceration with foreign body of right hand, initial encounter (principal); W26.8XXA Contact with other sharp object(s), not elsewhere classified, initial encounter; Y93.89 Activity, other specified; Y92.9 Unspecified place or not applicable; Y99.9 Unspecified external cause status; Z23 Encounter for immunization
CPT/HCPCS: 12001; 73110; 73130; 90471; 90715; 99283; 99284

== ENCOUNTER 2023-09-03 13:29 | Emergency (ER) | payer OTHER, SELFPAY ==
--- NOTE | 2023-09-03 | ECG_ITS ---
Test Reason : CP Blood Pressure : / mmHG Vent. Rate : 094 BPM Atrial Rate : 094 BPM P-R Int : 148 ms QRS Dur : 078 ms QT Int : 368 ms P-R-T Axes : 046 -38 040 degrees QTc Int : 460 ms Normal sinus rhythm Left axis deviation Abnormal ECG When compared with ECG of 07-NOV-2022 09:29, No significant change was found Referred By: Generic ED Physician Electronically Signed By:Quincy Alvarado
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
[2023-09-03 14:22] VITALS: BP 139/83; PULSE 92; RESP 16; TEMP 36.5; O2SAT 94; BMI 33.4
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
[2023-09-03] MEDS: Acetaminophen 325 MG TABLET 975 MG PO (14:34)
--- NOTE | 2023-09-03 14:45 | PC.NURSE ---
Second set of blood cultures not drawn as tech missed twice and it was very painful , provider aware and is reassured with her current lab work.
[2023-09-03 16:11] VITALS: BP 133/81; PULSE 90; RESP 19; TEMP 36.9; O2SAT 97
== END 2023-09-03 16:29 | disposition left against medical advice (07) ==
PROVIDERS: Emergency Provider Emergency Medicine Emergency Medical Services; PCP Internal Medicine
DX: S09.90XA Unspecified injury of head, initial encounter (principal); S19.9XXA Unspecified injury of neck, initial encounter; R51.9 Headache, unspecified; M54.2 Cervicalgia; R07.89 Other chest pain; V43.52XA Car driver injured in collision with other type car in traffic accident, initial encounter; Y93.9 Activity, unspecified; Y92.410 Unspecified street and highway as the place of occurrence of the external cause; Y99.8 Other external cause status
CPT/HCPCS: 70450; 72125; 93005; 99284

== ENCOUNTER → 2023-09-03 13:39 | Outpatient (BNV) | payer OTHER, SELFPAY | PROVIDERS: Emergency Provider Emergency Medicine Emergency Medical Services; PCP Internal Medicine; Visit Provider Internal Medicine Cardiovascular Disease | DX: R94.31 Abnormal electrocardiogram [ECG] [EKG] (principal) | CPT/HCPCS: 93010 ==

== ENCOUNTER 2023-10-17 09:21 | Emergency (ER) | payer OTHER, SELFPAY ==
--- NOTE | ~2023-10-17 | XR_ITS ---
EXAMINATION: XR knee RT 3V CLINICAL INFORMATION: Reason for Exam fall COMPARISON: None available at the time of this dictation. TECHNIQUE: Frontal lateral and obliques views right knee 4 views. FINDINGS: BONES: No fracture or dislocation is present. JOINTS: Narrowing of joint spaces and developed osteophytes from the edges of articular surfaces suggest degenerative osteoarthritis. SOFT TISSUE: Normal XR/XR knee RT 3V IMPRESSION: Mild tricompartment degenerative osteoarthritis.
--- NOTE | ~2023-10-17 | XR_ITS ---
EXAMINATION: XR LUMBAR SPINE CLINICAL INFORMATION: Low back pain COMPARISON: Prior study 2019 TECHNIQUE: Frontal lateral and coned-down L5-S1 frontal lateral, total of 3 views FINDINGS: Five [id number] lumbar vertebrae were identified maintaining normal height and alignments. Narrowing of intervertebral disc spaces suggest underlying degenerative disc disease. Paravertebral soft tissues are unremarkable. There are radiolucencies, most likely superimposed bowel gas.. No radiographic evidence of osteolytic or osteoblastic lesions. XR/XR lumbar spine 2-3V IMPRESSION: Narrowing of intervertebral disc spaces suggest underlying degenerative disc disease.. No fracture.
[2023-10-17 09:24] VITALS: BP 112/70; PULSE 92; RESP 18; TEMP 36.6; O2SAT 97; BMI 31.0
[2023-10-17 10:00] VITALS: BP 133/81; PULSE 77; TEMP 36.6; O2SAT 95
--- NOTE | 2023-10-17 10:34 | ED.BACK ---
HPI - Back Pain/Injury General Chief Complaint: Back Pain/Injury Stated Complaint: Back pain Time Seen by Provider: 10/17/23 10:08 Source: patient, family, RN notes reviewed and old records reviewed History of Present Illness ED Provider: Sandi Lorenzo PA-C HPI Narrative: 68-year-old Lebanese-speaking male with no significant past medical history presenting to the ED complaining of low back pain times 3-4 days. Reports symptoms are acute on chronic, with prior lumbar back surgery due to herniated discs. Denies direct back injury/trauma or fall, however does report fall onto right knee 2 days ago. Admits to intermittent numbness down RLE. Denies weakness, incontinence/retention, fever, abdominal pain, hematuria. Denies taking anything for pain MD elicited complaint: back pain Related Data Previous Rx's ?Medication ?Instructions ?Recorded acetaminophen 500 mg tablet 500 mg PO Q6H PRN fever or pain 11/10/21 (Tylenol Extra Strength) #14 tabs cyclobenzaprine 5 mg tablet 5 mg PO Q8H PRN pain (scale score 11/10/21 7-10) 5 days #14 tabs ibuprofen 800 mg tablet 800 mg PO Q8H PRN pain #14 tabs 11/10/21 lidocaine 5 % topical patch 1 patch topical DAILY PRN pain #30 11/10/21 (Lidoderm) ea tramadol 50 mg tablet 50 mg PO Q8H PRN pain, severe #7 11/10/21 tabs cyclobenzaprine 5 mg tablet 5 mg PO TID PRN muscle spasm #12 11/21/22 tabs naproxen 500 mg tablet 500 mg PO BID PRN pain #14 tabs 12/13/22 prednisone 20 mg tablet 20 mg PO DAILY 5 days #5 tabs 12/13/22 Allergies Allergy/AdvReac Type Severity Reaction Status Date / Time No Known Allergies Allergy Verified 10/17/23 09:27 Review of Systems Review of Systems: Constitutional:No Fever, No Chills ENT/Mouth: No Ear Pain, No Nasal Congestion, No sore throat, No Rhinorrhea, No Swallowing Difficulty Cardiovascular: No Chest Pain, No SOB Respiratory: No Cough Gastrointestinal: No Nausea, No Vomiting, No Diarrhea, No Constipation, No Abdominal pain Genitourinary: No Dysuria, No Urinary Frequency, No Hematuria, No Urinary Incontinence/retention, No Flank Pain Musculoskeletal: + joint pain, No Myalgias, + Joint Swelling Skin: No Skin Lesions, No rash, +eccyhmosis Neuro: No Weakness, No Numbness, + Paresthesias Yes all other systems are reviewed and are negative Constitutional: Constitutional: Reports as per [facility] Past Medical History Attestation statement: The following information was validated with the patient. 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 Physical Exam Vital Signs: Vital Signs: Last Vital Signs Temp 97.8 F 10/17/23 10:00 Pulse 77 10/17/23 10:00 Resp 18 10/17/23 09:24 BP 133/81 10/17/23 10:00 Pulse Ox 95 10/17/23 10:00 O2 Del Method Room Air 10/17/23 10:00 BMI result Body Mass Index 31.0 Const: General: cooperative, healthy appearing and no acute distress Orientation/consciousness: patient oriented x3 Limitations: no limitations HEENT: Head: Yes normal to inspection and Yes atraumatic Ears: hearing grossly normal bilaterally General nose exam: Normal external nose present Face and sinus: Yes normal facial exam Eyes: General: appearance normal, both eyes and all related structures EOM: EOMs intact bilaterally Neck: Neck: Yes normal visual inspection and Yes no meningeal signs Resp: Effort & Inspection: normal respiratory effort and no respiratory distress Cardio: Rate: regular rate GI: Inspection: Yes normal to inspection Palpation (GI): Soft to palpation, nontender, no guarding and not rigid : General: Yes no CVA tenderness Back/Spine/Pelvis: Other: No midline cervical/thoracic/lumbar spinous tenderness/step-off or deformity. + midline lumbar old surgical scar noted. Right-sided lumbar paraspinal reproducible tenderness. Back: no CVA tenderness Skin: Rashes: no rashes Wounds: no wounds Neuro: Other: Strength intact throughout. No saddle anesthesia. Sensation intact to light touch. Neurovascular intact distally General: patient oriented x3, gait normal, tone normal, moves all extremities and no meningeal signs Cranial nerves: Yes CN's II-XII intact bilaterally Gait exam (Neuro): Normal gait present Motor exam (neuro): 5/5 motor strength present throughout Extrem: Other: Right knee with mild swelling and superficial abrasion. + healing ecchymosis noted to right medial thigh. No fluctuance/induration or streaking Course Course Course Narrative: 1220--XR lumbar spine 2-3V IMPRESSION: Narrowing of intervertebral disc spaces suggest underlying degenerative disc disease.. No fracture. XR knee RT 3V IMPRESSION: Mild tricompartment degenerative osteoarthritis. -UA unremarkable > on re-evaluation patient reports symptomatic improvement in requesting discharge home Results discussed with patient including worrisome signs and symptoms and strict return precautions, and when to return to the emergency department. They verbalized understanding and feel safe for discharge at this time. Medications Administered Discontinued Medications Generic Name Dose Route Start Last Admin Trade Name Freq PRN Reason Stop Dose Admin Cyclobenzaprine HCl 10 mg 10/17/23 10:47 10/17/23 10:53 Cyclobenzaprine Hcl 10 Mg Tablet PO 10/17/23 10:48 10 mg ONCE ONE Administration Lidocaine 1 patch 10/17/23 10:47 10/17/23 10:52 Lidocaine 4 % Patch Adh..Patch TRANSDERMA 10/17/23 10:48 1 patch ONCE ONE Administration Protocol Medical Decision Making Medical Decision Making [facility] Narrative: 68-year-old Lebanese-speaking male with no significant past medical history presenting to the ED complaining of low back pain times 3-4 days. On exam vital signs stable, NAD, nontoxic appearing, physical exam as noted above without midline spinous tenderness or red flag symptoms. Ambulating with steady gait. Right-sided lumbar MSK/paraspinal tenderness noted and right knee/medial thigh ecchymosis appreciated. Concern for MSK pain/strain vs herniated disc vs muscle spasming vs knee sprain/fracture vs tendinopathy vs ligamental injury. Low suspicion for cauda equina/cord compression, epidural abscess, pyelo/renal stone Plan: UA, x-rays, pain control, re-evaluate Please refer to course for remaining clinical decision making, interpretation of labs/imaging results, and discussions with consultants and/or family members. Differential Diagnosis Differential Diagnoses: The differential diagnosis associated with the presentation includes As above Admission/Observation Consideration of admission/observation: Escalation of care including admission/observation considered Lab Data [facility] Lab Attestation statement: I reviewed the patient's lab results. Labs: Lab Results 10/17/23 Range/Units 11:55 Urine Color Yellow Urine Appearance Clear Urine pH 6.0 (5.0-9.0) Ur Specific [place] 1.020 (1.005-1.025) Urine Protein Negative (Neg-Trace) mg/dL Urine Glucose (UA) Negative (Negative) mg/dL Urine Ketones Negative (Negative) mg/dL Urine Blood Negative (Negative) Urine Nitrite Negative (Negative) Ur Leukocyte Esterase Trace H (Negative) Urine RBC 0-2 (0-2) /HPF Urine WBC 0-5 (0-5) /HPF Ur Squamous Epith Cells 0-2 (0-2) /HPF Urine Bacteria None Seen (None Seen) Hyaline Casts 0-2 (0-2) /LPF Independent Interpretation I performed an independent interpretation of an: Plain X-Ray Radiology Impression Discussion of test interpretation with radiology: I have reviewed the radiologist's reading. Independent Historian Clinical information obtained from an independent historian. History obtained from or confirmed by: Spouse External Record Review External record reviewed: Inpatient record, Office record, Outpatient record, Prior outpatient labs, Prior outpatient radiology, Primary care record and Outside ED record Tests considered The following testing was considered but not selected: As above Prescription Management I considered prescription management with: Pain Medication Discharge Plan Discharge Clinical Impression: Lumbar radiculopathy, Acute knee pain Patient Disposition: Home, Self-Care Instructions: Acute Low Back Pain (ED), Knee Pain (ED) Prescriptions: No Action cyclobenzaprine 5 mg tablet 5 mg PO Q8H PRN (Reason: pain (scale score 7-10)) 5 Days Qty: 14 0RF ibuprofen 800 mg tablet 800 mg PO Q8H PRN (Reason: pain) Qty: 14 0RF lidocaine [Lidoderm] 5 % adhesive patch,medicated 1 patch topical DAILY MDD remove after 12 hours PRN (Reason: pain) Qty: 30 0RF Rx Instructions: leave on most painful area for up to 12 hrs tramadol 50 mg tablet 50 mg PO Q8H PRN (Reason: pain, severe) Qty: 7 0RF acetaminophen [Tylenol Extra Strength] 500 mg tablet 500 mg PO Q6H PRN (Reason: fever or pain) Qty: 14 0RF cyclobenzaprine 5 mg tablet 5 mg PO TID PRN (Reason: muscle spasm) Qty: 12 0RF naproxen 500 mg tablet 500 mg PO BID PRN (Reason: pain) Qty: 14 0RF Rx Instructions: Take with food prednisone 20 mg tablet 20 mg PO DAILY 5 Days Qty: 5 0RF Print Language: Lebanese
[2023-10-17] MEDS: Lidocaine 4 % Patch ADH..PATCH 1 PATCH TRANSDERMA (10:52)
[2023-10-17] MEDS: Cyclobenzaprine HCl 10 MG TABLET PO (10:53)
[2023-10-17 12:01] LABS: Appearance Urine Clear; Color Urine Yellow; Glucose Urine UA Negative (Negative); Leukocyte Esterase Urine Trace (Negative); Nitrite Urine Negative (Negative); UMIC TRIGGER UACC YES; Urine Blood Negative (Negative); Urine Ketones Negative (Negative); Urine Protein Negative (Neg-Trace)
[2023-10-17 12:05] LABS: Bacteria Urine None Seen (None Seen); Hyaline Casts Urine 0-2 /LPF (0-2); RBC Urine 0-2 /HPF (0-2); Squamous Epithelial Cell Urine 0-2 /HPF (0-2); WBC Urine 0-5 /HPF (0-5)
[2023-10-17 12:48] VITALS: BP 133/81; PULSE 77; RESP 18; TEMP 36.6; O2SAT 95
== END 2023-10-17 12:49 | disposition home or self-care (01) ==
PROVIDERS: Emergency Provider Student in an Organized Health Care Education/Training Program; PCP Internal Medicine
DX: M54.16 Radiculopathy, lumbar region (principal); M25.561 Pain in right knee; Z91.81 History of falling
CPT/HCPCS: 72100; 73562; 81001; 81003; 99283

== ENCOUNTER 2023-12-31 19:46 | Emergency (ER) | payer OTHER, SELFPAY ==
[2023-12-31 19:50] VITALS: BP 136/81; PULSE 104; RESP 17; TEMP 37.2; O2SAT 99; BMI 26.7
[2023-12-31 20:35] VITALS: BP 168/84; PULSE 106; RESP 18; TEMP 36.9; O2SAT 94
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
[2023-12-31 22:36] VITALS: BP 168/84; PULSE 106; RESP 18; TEMP 36.9; O2SAT 94
--- NOTE | 2023-12-31 22:36 | PC.NURSE ---
steri strips applied, AMA paperwork signed by pt , pt verbalizes understanding
== END 2023-12-31 22:37 | disposition left against medical advice (07) ==
PROVIDERS: Emergency Provider Emergency Medicine; PCP Internal Medicine
DX: S01.112A Laceration without foreign body of left eyelid and periocular area, initial encounter (principal); Y04.2XXA Assault by strike against or bumped into by another person, initial encounter; Y93.9 Activity, unspecified; Y92.410 Unspecified street and highway as the place of occurrence of the external cause; Y99.9 Unspecified external cause status; Z53.29 Procedure and treatment not carried out because of patient's decision for other reasons
CPT/HCPCS: 12013; 99283; 99284

== ENCOUNTER 2024-01-04 01:05 | Emergency (ER) | payer OTHER, SELFPAY ==
[2024-01-04 01:16] VITALS: BP 134/83; PULSE 85; RESP 20; TEMP 36.1; O2SAT 98; BMI 30.1
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
[2024-01-04 04:09] VITALS: BP 135/84; PULSE 70; RESP 16; TEMP 36.5; O2SAT 98
== END 2024-01-04 04:10 | disposition home or self-care (01) ==
PROVIDERS: Emergency Provider Emergency Medicine; PCP Internal Medicine
DX: S70.11XA Contusion of right thigh, initial encounter (principal); M79.604 Pain in right leg; X58.XXXA Exposure to other specified factors, initial encounter; Y93.89 Activity, other specified; Y92.89 Other specified places as the place of occurrence of the external cause; Y99.8 Other external cause status
CPT/HCPCS: 99282; 99283

== ENCOUNTER 2024-01-08 01:48 | Emergency (ER) | payer OTHER, SELFPAY ==
[2024-01-08 01:50] VITALS: BP 149/61; PULSE 92; RESP 16; TEMP 36.6; O2SAT 100; BMI 30.1
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
[2024-01-08 02:38] VITALS: BP 139/78; PULSE 86; RESP 16; TEMP 36.7; O2SAT 98
== END 2024-01-08 02:39 | disposition home or self-care (01) ==
PROVIDERS: Emergency Provider Internal Medicine; PCP Internal Medicine
DX: S01.112A Laceration without foreign body of left eyelid and periocular area, initial encounter (principal); X58.XXXA Exposure to other specified factors, initial encounter; Y93.89 Activity, other specified; Y92.89 Other specified places as the place of occurrence of the external cause; Y99.8 Other external cause status
CPT/HCPCS: 99284

== ENCOUNTER 2024-03-10 19:03 | Emergency (ER) | payer OTHER, SELFPAY ==
--- NOTE | ~2024-03-10 | XR_ITS ---
EXAMINATION: XR ANKLE, LEFT CLINICAL INFORMATION: Fall COMPARISON: None available. TECHNIQUE: AP, lateral, and mortise views of the left ankle. FINDINGS: No fracture. Alignment is anatomic. No erosions. Joint spaces are maintained. Soft tissues are normal. XR/XR ankle LT min 3V IMPRESSION: Normal left ankle. Electronically signed by: Ángela Santiago MD 03/10/2024 08:07 PM EDT RP
--- NOTE | ~2024-03-10 | XR_ITS ---
EXAMINATION: XR SHOULDER, LEFT CLINICAL INFORMATION: Fall COMPARISON: None available. TECHNIQUE: Three views of the left shoulder. FINDINGS: There is mild acromioclavicular osteoarthritis. Glenohumeral joint is well preserved. No fracture. Alignment is anatomic. Soft tissues are normal with no abnormal calcifications. XR/XR shoulder LT min 2V IMPRESSION: Mild acromioclavicular joint arthritis. Electronically signed by: Ángela Santiago MD 03/10/2024 08:09 PM EDT
--- NOTE | ~2024-03-10 | XR_ITS ---
EXAMINATION: XR KNEE, LEFT CLINICAL INFORMATION: Fall COMPARISON: None available. TECHNIQUE: Four views of the left knee. FINDINGS: There is mild medial compartment joint space narrowing. No acute fracture. No joint effusion. No significant soft tissue swelling. 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 Electronically signed by: Ángela Santiago MD 03/10/2024 08:09 PM EDT RP
--- NOTE | ~2024-03-10 | XR_ITS ---
EXAMINATION: XR HAND/WRIST, RIGHT CLINICAL INFORMATION: Fall COMPARISON: None available. TECHNIQUE: PA, lateral, and oblique views of the right hand and wrist. FINDINGS: The bones and soft tissues are normal. No fracture. Alignment is anatomic. Joint spaces are maintained. No erosions. Vascular calcifications. XR/XR hand wrist RT IMPRESSION: No acute traumatic findings. Electronically signed by: Ángela Santiago MD 03/10/2024 08:08 PM EDT RP
[2024-03-10 19:31] VITALS: BP 125/73; PULSE 104; RESP 20; TEMP 37.1; O2SAT 94; BMI 29.1
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
[2024-03-10] MEDS: Ibuprofen 600 MG TABLET PO (22:07)
--- NOTE | 2024-03-10 22:08 | PC.NURSE ---
pt medicated per JUL for 10 knee/wrist pain.
[2024-03-10 22:18] VITALS: BP 136/80; PULSE 91; RESP 19; TEMP 36.5; O2SAT 95
[2024-03-10 22:21] VITALS: BP 136/80; PULSE 91; RESP 19; TEMP 36.5; O2SAT 95
== END 2024-03-10 22:21 | disposition home or self-care (01) ==
PROVIDERS: Emergency Provider Internal Medicine; PCP Internal Medicine
DX: M25.531 Pain in right wrist (principal); M25.562 Pain in left knee; M25.572 Pain in left ankle and joints of left foot; Z91.81 History of falling; M25.512 Pain in left shoulder
CPT/HCPCS: 73030; 73110; 73130; 73562; 73610; 99283; 99284

== ENCOUNTER 2024-06-11 04:49 | Emergency (ER) | payer OTHER, SELFPAY ==
--- NOTE | 2024-06-11 | ECG_ITS ---
Test Reason : CHEST PAIN Blood Pressure : */* mmHG Vent. Rate : 82 BPM Atrial Rate : 82 BPM P-R Int : 160 ms QRS Dur : 80 ms QT Int : 400 ms P-R-T Axes : 51 -41 36 degrees QTcB Int : 467 ms Normal sinus rhythm Left axis deviation Abnormal ECG When compared with ECG of 03-Sep-2023 13:39, No significant change was found Referred By: Generic ED Physician Electronically Signed By: JAROCHO LAWRENCE MD
--- NOTE | ~2024-06-11 | XR_ITS ---
CLINICAL HISTORY: cp 1 view chest x-ray Comparison: 11/07/2022 Findings: No consolidation or effusion. Heart size is normal. No acute fracture. IMPRESSION: 1. No acute findings. This document has been electronically signed by: Kedar Cota MD on 06/11/2024 06:12:11
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
--- NOTE | ~2024-06-11 | XR_ITS ---
CLINICAL HISTORY: L. hip s p fall, hip replacement 3 years ago 3 view, pelvis and left hip Comparison: None Findings: No acute fracture or dislocation. Components of the left hip prosthesis are intact and well aligned. No significant arthritic change. The soft tissues are unremarkable. IMPRESSION: No acute findings. This document has been electronically signed by: Kedar Cota MD on 06/11/2024 06:12:04
[2024-06-11 04:51] VITALS: BP 140/91; PULSE 86; RESP 18; TEMP 36.3; O2SAT 96; BMI 29.1
[2024-06-11 05:23] LABS: MANUAL DIFF FLAG NO
[2024-06-11 05:24] LABS: Basophils Percent Auto 0.5 % (0-2); Eosinophils Absolute Auto 0.4 X10*3/uL (0.0-0.4); Eosinophils Percent Auto 5.8 % (0-4); Hematocrit 44.3 % (42.0-52.0); Hemoglobin 15.5 g/dl (14.0-18.0); Imm Gran Abs Auto 0.01 X10*3/uL (0.00-0.03); Imm Gran Pct Auto 0.2 % (0.0-0.4); Lymphocytes Percent Auto 31.3 % (20-40); Mean Corpuscular Hemoglobin 33.2 pg (27.0-33.0); Mean Corpuscular Volume 94.9 fL (80.0-98.0); Mean Platelet Volume 9.2 fL (9.4-12.4); Monocytes Absolute Auto 0.8 X10*3/uL (0.1-1.2); Monocytes Percent Auto 13.3 % (2-11); Neutrophils Absolute Auto 3.1 x10*3/uL (2.0-8.3); Neutrophils Percent Auto 48.9 % (45-73); Platelet Count 292 X10*3/uL (160-400); Red Blood Count 4.67 X10*6/uL (4.60-5.80); Red Cell Distribution Width 12.8 % (11.0-16.0); White Blood Count 6.3 X10*3/uL (4.8-10.8)
[2024-06-11 05:44] LABS: Troponin-I High Sensitivity 6.1 ng/L (<3.5-35.0)
[2024-06-11 05:47] LABS: Alanine Aminotransferase 19 U/L (0-40); Albumin Level 3.8 g/dL (3.5-5.0); Alkaline Phosphatase 109 U/L (39-117); Anion Gap 13 (12-20); Aspartate Amino Transferase 33 U/L (5-37); Bilirubin Total 0.4 mg/dL (0.0-1.0); Blood Urea Nitrogen 20 mg/dL (9-16); Calcium 9.1 mg/dL (8.4-10.2); Carbon Dioxide 21 mmol/L (22-29); Chloride 108 mmol/L (96-108); Creatinine Clr Calc Pharmacy 70.9; Estimated Glomerular Filt Rate > 60; Glucose Random 82 mg/dL (60-115); Potassium 4.3 mmol/L (3.3-5.1); Sodium 138 mmol/L (135-145); Total Protein 7.2 g/dL (6.5-8.0)
--- NOTE | 2024-06-11 06:22 | PC.NURSE ---
pt a&o, denies sob or chest pain at this time, complaining of lower back pain, pt ambulated to CT Scan, pt voicing frustration of having to be here so long, pt awaiting results.
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
[2024-06-11 06:40] VITALS: BP 140/91; PULSE 86; RESP 18; TEMP 36.3; O2SAT 96
--- NOTE | 2024-06-11 06:40 | PC.NURSE ---
pt left with out discharge paper work, provider aware.
== END 2024-06-11 06:41 | disposition left against medical advice (07) ==
PROVIDERS: Emergency Provider Emergency Medicine; PCP Internal Medicine
DX: R07.9 Chest pain, unspecified (principal); M54.50 Low back pain, unspecified; T14.90XA Injury, unspecified, initial encounter; V47.0XXA Car driver injured in collision with fixed or stationary object in nontraffic accident, initial encounter; Y93.9 Activity, unspecified; Y92.9 Unspecified place or not applicable; Y99.9 Unspecified external cause status; Z53.29 Procedure and treatment not carried out because of patient's decision for other reasons; Z79.899 Other long term (current) drug therapy
CPT/HCPCS: 36415; 70450; 71045; 72125; 73502; 80053; 84484; 85025; 93005; 99284

== ENCOUNTER → 2024-06-11 05:13 | Outpatient (BNV) | payer OTHER, SELFPAY | PROVIDERS: Emergency Provider Emergency Medicine; PCP Internal Medicine; Visit Provider Internal Medicine Cardiovascular Disease | DX: R94.31 Abnormal electrocardiogram [ECG] [EKG] (principal) | CPT/HCPCS: 93010 ==

== ENCOUNTER → 2024-06-11 05:40 | Outpatient (BNV) | payer OTHER, SELFPAY | PROVIDERS: Emergency Provider Emergency Medicine; PCP Internal Medicine; Visit Provider Specialist | DX: M54.2 Cervicalgia (principal); S09.90XA Unspecified injury of head, initial encounter; S79.912A Unspecified injury of left hip, initial encounter; R07.9 Chest pain, unspecified | CPT/HCPCS: 70450; 71045; 72125; 73502 ==

== ENCOUNTER 2024-08-31 08:46 | Emergency (ER) | payer OTHER, SELFPAY ==
--- NOTE | ~2024-08-31 | XR_ITS ---
EXAMINATION: XR LUMBAR SPINE 2-3 VIEWS HISTORY: pain with ambulating COMPARISON: Comparison is made with the prior examination dated 10/17/2023. FINDINGS: AP, lateral, and coned down views of the lumbar spine are submitted. Osseous mineralization is normal. Five nonrib-bearing lumbar vertebral bodies are identified, maintaining normal height and alignment without evidence of fracture or spondylolisthesis. There is severe degenerative disc disease at the L5-S1 level with disc space narrowing and osteophyte formation. Milder changes are noted at the remaining levels. 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 The visualized paraspinal soft tissues are unremarkable. XR/XR lumbar spine 2-3V IMPRESSION: Degenerative changes of the lumbar spine as described. Electronically signed by: Fab Gómez MD 08/31/2024 09:30 AM EDT
--- NOTE | ~2024-08-31 | XR_ITS ---
EXAMINATION: XR HIP 2 OR MORE VIEWS LEFT HISTORY: pain with ambulating, previous replacement COMPARISON: Comparison is made with the prior examination dated 06/11/2024. FINDINGS: A single AP view of the pelvis and 2 views of the left hip are submitted. The patient is again noted to be status post left total hip arthroplasty. The orthopedic elements are in anatomic alignment. There is no radiographic evidence of loosening. There is no fracture or dislocation. There is mild degenerative disc disease of the lower lumbar spine. The soft tissues are unremarkable. XR/XR hip LT min 2V IMPRESSION: Status post left total hip arthroplasty. Electronically signed by: Fab Gómez MD 08/31/2024 09:28 AM EDT
[2024-08-31 09:00] VITALS: BP 125/78; PULSE 95; RESP 20; TEMP 37; O2SAT 98; BMI 28.6
[2024-08-31 09:32] LABS: MANUAL DIFF FLAG NO
[2024-08-31 09:35] LABS: Basophils Percent Auto 0.4 % (0-2); Eosinophils Absolute Auto 0.2 X10*3/uL (0.0-0.4); Eosinophils Percent Auto 4.2 % (0-4); Hematocrit 46.6 % (42.0-52.0); Hemoglobin 16.3 g/dl (14.0-18.0); Imm Gran Abs Auto 0.02 X10*3/uL (0.00-0.03); Imm Gran Pct Auto 0.4 % (0.0-0.4); Lymphocytes Absolute Auto 1.2 X10*3/uL (1.2-4.9); Lymphocytes Percent Auto 21.5 % (20-40); Mean Corpuscular Hemoglobin 33.5 pg (27.0-33.0); Mean Corpuscular Volume 95.7 fL (80.0-98.0); Mean Platelet Volume 9.1 fL (9.4-12.4); Monocytes Absolute Auto 0.7 X10*3/uL (0.1-1.2); Monocytes Percent Auto 11.4 % (2-11); Neutrophils Absolute Auto 3.5 x10*3/uL (2.0-8.3); Neutrophils Percent Auto 62.1 % (45-73); Platelet Count 327 X10*3/uL (160-400); Red Blood Count 4.87 X10*6/uL (4.60-5.80); Red Cell Distribution Width 13.4 % (11.0-16.0); White Blood Count 5.7 X10*3/uL (4.8-10.8)
[2024-08-31 09:46] LABS: Alanine Aminotransferase 24 U/L (0-40); Alkaline Phosphatase 115 U/L (39-117); Anion Gap 12 (12-20); Aspartate Amino Transferase 22 U/L (5-37); Bilirubin Total 0.5 mg/dL (0.0-1.0); Blood Urea Nitrogen 13 mg/dL (9-16); Calcium 9.4 mg/dL (8.4-10.2); Carbon Dioxide 30 mmol/L (22-29); Chloride 105 mmol/L (96-108); Creatinine Clr Calc Pharmacy 85.1; Estimated Glomerular Filt Rate > 60; Glucose Random 119 mg/dL (60-115); Sodium 142 mmol/L (135-145); Total Protein 7.2 g/dL (6.5-8.0)
[2024-08-31 11:22] VITALS: BP 145/91; PULSE 70; RESP 16; TEMP 37; O2SAT 96
--- NOTE | 2024-08-31 11:41 | ED_ITS ---
HPI - General Adult General Chief complaint: Back Pain/Injury Stated complaint: rectal bleeding back pain Time Seen by Provider: 08/31/24 11:40 Source: patient and interpreter translator (all interactions with this patient were facilitated with an [facility] interpreter for the deaf) Mode of arrival: ambulatory Limitations: language barrier (all interactions with this patient were facilitated with an [facility] interpreter for the deaf) History of Present Illness ED Provider: Ashtyn Yeboah PA-C HPI narrative: Patient is a 69 year old assigned male at with a history of left hip replacement and lumbar surgery presenting to the emergency department today with low back pain and bright blood per rectum. Patient states that a few days ago he helped lift a tractor trailer and his low back has hurt ever since. Patient states that he also, unrelated, noticed bright red blood on the toilet paper after wiping. Patient denies any dizziness, lightheadedness, abdominal pain, nausea, vomiting, fever, chills, blurry vision, double vision, loss of vision, chest pain, difficulty breathing, shortness of breath, night sweats, pain with urination, increased urinary frequency, increased urinary urgency, blood in his urine, syncope or a near syncopal episode, bowel incontinence, bladder incontinence, or any other complaints at this time. Relieving factors: none Exacerbating factors: none Treatments prior to arrival: none Related Data Previous Rx's ?Medication ?Instructions ?Recorded acetaminophen 500 mg tablet 500 mg PO Q6H PRN fever or pain 11/10/21 (Tylenol Extra Strength) #14 tabs cyclobenzaprine 5 mg tablet 5 mg PO Q8H PRN pain (scale score 11/10/21 7-10) 5 days #14 tabs ibuprofen 800 mg tablet 800 mg PO Q8H PRN pain #14 tabs 11/10/21 lidocaine 5 % topical patch 1 patch topical DAILY PRN pain #30 11/10/21 (Lidoderm) ea tramadol 50 mg tablet 50 mg PO Q8H PRN pain, severe #7 11/10/21 tabs cyclobenzaprine 5 mg tablet 5 mg PO TID PRN muscle spasm #12 11/21/22 tabs naproxen 500 mg tablet 500 mg PO BID PRN pain #14 tabs 12/13/22 prednisone 20 mg tablet 20 mg PO DAILY 5 days #5 tabs 12/13/22 cyclobenzaprine 5 mg tablet 5 mg PO Q8H PRN pain (scale score 10/17/23 7-10) 5 days #14 tabs lidocaine 5 % topical patch 1 patch topical DAILY PRN pain #30 10/17/23 (Lidoderm) ea naproxen 500 mg tablet 500 mg PO BID PRN pain 10 days #20 10/17/23 tabs morphine 15 mg immediate release 15 mg PO Q6H PRN pain #10 tabs 01/04/24 tablet ibuprofen 600 mg tablet 600 mg PO Q6H PRN fever or pain 03/10/24 #30 tabs cyclobenzaprine 5 mg tablet 5 mg PO TID PRN muscle spasm 7 08/31/24 days #21 tabs prednisone 20 mg tablet 20 mg PO DAILY 7 days #7 tabs 08/31/24 Allergies Allergy/AdvReac Type Severity Reaction Status Date / Time No Known Allergies Allergy Verified 08/31/24 09:06 Review of Systems 2 Constitutional: Constitutional: Reports no additional constitutional complaints, Denies chills, Denies fever(s) and Denies night sweats Eyes: Eyes: Reports no additional eye complaints, Denies blurry vision, Denies change in vision, Denies diplopia, Denies eye discharge, Denies loss of vision and Denies eye pain ENT: Denies dizziness Cardiovascular: Cardiovascular: Reports no additional cardiovascular complaints, Denies chest pain, Denies lightheadedness, Denies Loss of Consciousness and Denies dyspnea Respiratory: Respiratory: Reports no additional respiratory complaints and Denies dyspnea Gastrointestinal: Gastrointestinal: Reports no additional gastrointestinal complaints, Denies abdominal pain, Denies melena, Denies hematochezia, Denies change in bowel habits and Denies change in stool character Comments: bright red blood on toilet paper when wiping Genitourinary: Genitourinary: Reports no additional male genitourinary complaints, Denies hematuria, Denies oliguria, Denies difficulty urinating, Denies dysuria, Denies urinary frequency, Denies urinary hesitancy, Denies urinary incontinence and Denies urinary urgency Musculoskeletal: Musculoskeletal: Reports no additional musculoskeletal complaints, Reports back pain, Denies numbness and Denies tingling Neurologic: Denies dizziness, Denies loss of vision, Denies numbness and Denies tingling Psychiatric: Psychiatric: Reports no additional psychiatric complaints Endocrine: Endocrine: Reports no additional endocrine complaints Hematologic/Lymphatic: Hematologic/Lymphatic: Reports no additional hematologic/lymphatic complaints Allergic/Immunologic: Allergic/Immunologic: Reports no additional allergic/immunologic complaints [facility] Past Medical History Attestation statement: The following information was validated with the patient. 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 Physical Exam ED Vital Signs: Vital Signs - 24 hr 08/31/24 09:00 08/31/24 11:22 08/31/24 12:12 Temperature 98.6 F 98.6 F 98.6 F Pulse Rate 95 70 70 Respiratory Rate 20 16 16 Blood Pressure 125/78 145/91 H 145/91 H Pulse Oximetry 98 96 96 Oxygen Delivery Method Room Air Room Air Room Air BMI result Body Mass Index 28.6 Const General: cooperative, no acute distress, alert and awake Nutritional Appearance: well nourished Orientation/consciousness: patient oriented x3 Limitations: no limitations HENMT Head: Yes normal to inspection and Yes atraumatic Ears: hearing grossly normal bilaterally and external ears normal General nose exam: Normal external nose present, no nasal discharge noted and no epistaxis Face and sinus: Yes normal facial exam, No abrasion and No laceration Mouth: Normal oral and palatal mucosa present, no drooling and no muffled voice Eyes General: appearance normal, both eyes and all related structures Periorbital: periorbital findings normal Eyelids: Yes eyelids normal Conjunctivae: conjunctivae normal Pupils: Equal, round and reactive pupils present EOM: EOMs intact bilaterally Neck Neck: Yes normal visual inspection, Yes full ROM and Yes no lymphadenopathy Chest Chest palpation & inspection: normal inspection of the chest Resp Effort & Inspection: normal respiratory effort and able to speak in complete sentences GI Inspection: Yes normal to inspection Rectal Exam - Male: Yes External hemorrhoid(s) present (examination performed with Monique RN as two way radio technician) Neuro General: patient oriented x3, moves all extremities and CN's II-XI intact bilaterally Cranial nerves: Yes Equal, round and reactive pupils present Cognition (Neuro): normal cognition Extrem General: Yes normal to inspection, Yes full ROM and Yes capillary refill normal Psych Appearance: grossly normal Mental Status: mental status grossly normal Affect: normal affect Attitude: cooperative Thought process: Normal thought process present Thought content: Normal thought content present Insight: Good insight present (Psych) Medical Decision Making Medical Decision Making [facility] Narrative: Patient is a 69 year old assigned male at with a history of left hip replacement and lumbar surgery presenting to the emergency department today with low back pain and bright blood per rectum. Patient's physical exam was as noted in the physical exam portion of this note. Patient's blood work was unremarkable. Patient's left hip and lumbar x-rays showed no acute process. I explained my physical exam findings as well as all test results to the patient. I answered all questions asked by the patient. I stressed the importance of the patient taking his medication as directed (either prescribed or as the over the counter packaging recommends). I stressed the importance of the patient following up with his primary care provider. I stressed the importance of the patient returning to the emergency department immediately if his symptoms were to worsen or if he were to develop any dizziness, shortness of breath, difficulty breathing, chest pain, blurry vision, loss of vision, nausea, vomiting, abdominal pain, fever, chills, back pain, or any other complaints. Patient verbalized agreement and understanding with this treatment plan and discharge. Differential Diagnosis Differential Diagnoses: The differential diagnosis associated with the presentation includes Low back pain Acute on chronic low back pain Low back injury / sprain / strain Hemorrhoids Admission/Observation Consideration of admission/observation: Escalation of care including admission/observation considered Patient would have been admitted to the hospital had his work up had any findings where hospital admission was appropriate and his clinical presentation warranted hospital admission. Lab Data [facility] Lab Attestation statement: I reviewed the patient's lab results. My interpretation of these results are in the MDM Rationale portion of this note. 08/31/24 09:28 08/31/24 09:28 Labs: Lab Results 08/31/24 Range/Units 09:28 WBC 5.7 (4.8-10.8) X10*3/uL RBC 4.87 (4.60-5.80) X10*6/uL Hgb 16.3 (14.0-18.0) g/dl Hct 46.6 (42.0-52.0) % MCV 95.7 (80.0-98.0) fL MCH 33.5 H (27.0-33.0) pg MCHC 35.0 (31.0-36.0) g/dl RDW 13.4 (11.0-16.0) % Plt Count 327 (160-400) X10*3/uL MPV 9.1 L (9.4-12.4) fL Immature Gran % (Auto) 0.4 (0.0-0.4) % Neut % (Auto) 62.1 (45-73) % Lymph % (Auto) 21.5 (20-40) % [place] % (Auto) 11.4 H (2-11) % Eos % (Auto) 4.2 H (0-4) % Baso % (Auto) 0.4 (0-2) % Lymph # (Auto) 1.2 (1.2-4.9) X10*3/uL [place] # (Auto) 0.7 (0.1-1.2) X10*3/uL Eos # (Auto) 0.2 (0.0-0.4) X10*3/uL Baso # (Auto) 0.0 (0.0-0.2) X10*3/uL Abs Immat Gran (auto) 0.02 (0.00-0.03) X10*3/uL Absolute Neuts (auto) 3.5 (2.0-8.3) x10*3/uL Absolute Nucleated RBC 0.000 (0.0-0.012) X10*3/uL Nucleated RBC % (auto) 0.0 (0.0-0.2) /100WBC Sodium 142 (135-145) mmol/L Potassium 5.0 (3.3-5.1) mmol/L Chloride 105 (96-108) mmol/L Carbon Dioxide 30 H (22-29) mmol/L Anion Gap 12 (12-20) BUN 13 (9-16) mg/dL Creatinine 0.87 (0.5-1.4) mg/dL Estim Creat Clear Calc 85.1 Estimated GFR > 60 Random Glucose 119 H (60-115) mg/dL Calcium 9.4 (8.4-10.2) mg/dL Total Bilirubin 0.5 (0.0-1.0) mg/dL AST 22 (5-37) U/L ALT 24 (0-40) U/L Alkaline Phosphatase 115 (39-117) U/L Total Protein 7.2 (6.5-8.0) g/dL Albumin 4.0 (3.5-5.0) g/dL Independent Interpretation I performed an independent interpretation of an: Plain X-Ray Interpretation: My interpretation is in agreement with the radiologist's impression of these imaging studies. L EXAMINATION: XR HIP 2 OR MORE VIEWS LEFT HISTORY: pain with ambulating, previous replacement COMPARISON: Comparison is made with the prior examination dated 06/11/2024. FINDINGS: A single AP view of the pelvis and 2 views of the left hip are submitted. The patient is again noted to be status post left total hip arthroplasty. The orthopedic elements are in anatomic alignment. There is no radiographic evidence of loosening. There is no fracture or dislocation. There is mild degenerative disc disease of the lower lumbar spine. The soft tissues are unremarkable. XR/XR hip LT min 2V IMPRESSION: Status post left total hip arthroplasty. Electronically signed by: Fab Gómez MD 08/31/2024 09:28 AM EDT Dictated By: Fab Gómez MD Signed By: Electronically signed by Fab Gómez MD 08/31/24 0928 EXAMINATION: XR LUMBAR SPINE 2-3 VIEWS HISTORY: pain with ambulating COMPARISON: Comparison is made with the prior examination dated 10/17/2023. FINDINGS: AP, lateral, and coned down views of the lumbar spine are submitted. Osseous mineralization is normal. Five nonrib-bearing lumbar vertebral bodies are identified, maintaining normal height and alignment without evidence of fracture or spondylolisthesis. There is severe degenerative disc disease at the L5-S1 level with disc space narrowing and osteophyte formation. Milder changes are noted at the remaining levels. 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 The visualized paraspinal soft tissues are unremarkable. XR/XR lumbar spine 2-3V IMPRESSION: Degenerative changes of the lumbar spine as described. Electronically signed by: Fab Gómez MD 08/31/2024 09:30 AM EDT RP Dictated By: Fab Gómez MD Signed By: Electronically signed by Fab Gómez MD 08/31/24 2200 Radiology Impression Discussion of test interpretation with radiology: I have reviewed the radiologist's reading. Discharge Plan Discharge Clinical Impression: Bleeding hemorrhoids, Back pain Patient Disposition: Home, Self-Care Instructions: Hemorrhoids (DC), Acute Low Back Pain (ED) Additional Instructions: Follow up with your primary care provider. Return to the emergency department immediately if your symptoms worsen or if you develop any dizziness, shortness of breath, difficulty breathing, chest pain, blurry vision, loss of vision, nausea, vomiting, abdominal pain, fever, chills, back pain, or any other complaints. William?seguimiento?con goldstein m?dico de atenci?n primaria. Acuda inmediatamente al servicio de urgencias si max s?ntomas empeoran o si presenta falta de aliento, dificultad para respirar, dolor tor?cico, mareos, aturdimiento, dolor de espalda, dolor abdominal, fiebre, escalofr?os o cualquier otro s?ntoma. Please see the information below about our Patient Portal. If you are not yet enrolled in the [facility] Patient Portal, you will receive an enrollment email invitation following your visit to any [facility] care setting. You may also self-enroll in the Patient Portal by visiting our website: [email or web address] The following information is required to access the Patient Portal: - Your [facility] Medical Record Number - Your personal home email address (must match what is in your electronic medical record, Registration staff can assist with this) - Name - Date of Capabilities of the Patient Portal: - Message some providers - View upcoming appointments - Access your health summary, medical history, and visit history - View current conditions and allergies - View procedure and lab results - View your medications, including guidelines, side effects, and precautions - Complete pre-appointment questionnaires requested by your provider - Ready summary reports of your office visits and procedures To access the Patient Portal Mobile Marija, follow these directions: - Search [employer] in the Marija Store or [employer] Store - Download the Marija - Search for [facility] - Enter your login/password Portal del paciente Si usted no esta inscrito en el portal de pacientes de [facility], recibira ruth invitacion de inscripcion despues de goldstein visita al [facility] o al [facility] via correo electronico. Tambien puede inscribirse voluntariamente en el portal de pacientes visitando nuestra pagina web: [email or web address] La siguiente informacion sera requerida para acceder al portal: - Goldstein sherley de historia medica de [facility] - Goldstein direccion de correo electronico personal - Nombre - Fecha de nacimiento Capacidades: Las siguientes capacidades estan disponibles en el portal de pacientes: - Enviar mensajes a algunos doctores - Verificar proximas citas - Acceso a goldstein historial de guillermo, registro medico e historial de visitas - Gerard las condiciones actuales y alergias gerard procedimientos y resultados del laboratorio - Gerard max medicamentos, incluyendo las pautas - Efectos secundarios y precauciones - Completar o llenar formularios / cuestionarios de - Citas solicitadas por goldstein doctor - Leer los resumenes de reportes medicos de max visitas y procedimientos Lisa acceder a la aplicacion movil: - [employer] en la Marija Store o [employer] Store - Descargue la aplicacion - [facility] - Ingrese goldstein nombre de usuario / Contrasena Prescriptions: New cyclobenzaprine 5 mg tablet 5 mg PO TID PRN (Reason: muscle spasm) 7 Days Qty: 21 0RF prednisone 20 mg tablet 20 mg PO DAILY 7 Days Qty: 7 0RF No Action cyclobenzaprine 5 mg tablet 5 mg PO Q8H PRN (Reason: pain (scale score 7-10)) 5 Days Qty: 14 0RF ibuprofen 800 mg tablet 800 mg PO Q8H PRN (Reason: pain) Qty: 14 0RF lidocaine [Lidoderm] 5 % adhesive patch,medicated 1 patch topical DAILY MDD remove after 12 hours PRN (Reason: pain) Qty: 30 0RF Rx Instructions: leave on most painful area for up to 12 hrs tramadol 50 mg tablet 50 mg PO Q8H PRN (Reason: pain, severe) Qty: 7 0RF acetaminophen [Tylenol Extra Strength] 500 mg tablet 500 mg PO Q6H PRN (Reason: fever or pain) Qty: 14 0RF cyclobenzaprine 5 mg tablet 5 mg PO TID PRN (Reason: muscle spasm) Qty: 12 0RF naproxen 500 mg tablet 500 mg PO BID PRN (Reason: pain) Qty: 14 0RF Rx Instructions: Take with food prednisone 20 mg tablet 20 mg PO DAILY 5 Days Qty: 5 0RF lidocaine [Lidoderm] 5 % adhesive patch,medicated 1 patch topical DAILY MDD remove after 12 hours PRN (Reason: pain) Qty: 30 0RF Rx Instructions: leave on most painful area for up to 12 hrs naproxen 500 mg tablet 500 mg PO BID PRN (Reason: pain) 10 Days Qty: 20 0RF cyclobenzaprine 5 mg tablet 5 mg PO Q8H PRN (Reason: pain (scale score 7-10)) 5 Days Qty: 14 0RF morphine 15 mg tablet 15 mg PO Q6H PRN (Reason: pain) Qty: 10 0RF Rx Instructions: Partial Fill upon patient request. ibuprofen 600 mg tablet 600 mg PO Q6H PRN (Reason: fever or pain) Qty: 30 0RF Referrals: Jorge Luis Falk MD [Primary Care Provider] - Interventions: ED Discharge Assessment Last Done: 08/31/24 12:12 Discharge Date/Time: 08/31/24 12:13 Print Language: Persian
[2024-08-31 12:12] VITALS: BP 145/91; PULSE 70; RESP 16; TEMP 37; O2SAT 96
--- OUTSIDE RECORDS SUMMARY | 2024-08-31 12:49 | XMS_ITS | Clinical Summary ---
Author Organization [employer] Address [address] [place] [address] Care Team Providers Care Business Office Manager Name Role Phone Unavailable Primary Care Provider Unavailabl e Allergies No known active allergies Medications clonazePAM (KlonoPIN) 0.5 MG tablet Take 1 tablet by mouth every 8 (eight) hours. 4 Active aspirin 81 MG EC tablet Take 1 tablet by mouth in the morning. Active atorvastatin (Lipitor) 20 MG tablet Take 20 mg by mouth in the morning. 3 Active Ventolin HFA 108 (90 Base) MCG/ACT inhaler INHALE 2 PUFFS INTO THE LUNGS EVERY 4 HOURS NEEDED FOR COUGH OR WHEEZING 3 Active clonazePAM (KlonoPIN) 1 MG tablet TAKE 0.5 TABLET BY MOUTH IN THE MORNING AND 1 TABLET AT BEDTIME 3 Active doxepin (SINEquan) 100 MG capsule Take 1 capsule by mouth at bedtime. Active acetaminophen (Tylenol 8 Hour) 650 MG ER tablet Take 1 tablet by mouth every 8 (eight) hours if needed. 4 Active budesonide-form oterol (Symbicort) 80-4.5 MCG/ACT inhaler Inhale 2 puffs 2 times daily. 4 Active carvedilol (Coreg) 6.25 MG tablet TAKE 1/2 TABLET BY MOUTH TWICE DAILY WITH MEALS 4 Active cholecalciferol (Vitamin D-3) 50 MCG (1999) tablet Take 1 tablet by mouth Once per day. 4 Active cyclobenzaprine (Flexeril) 10 MG tablet 4 Active DULoxetine (Cymbalta) [address] capsule Take 1 capsule by mouth Once per day. 4 Active DULoxetine (Cymbalta) [address] capsule 4 Active fluticasone (Flonase) 50 MCG/ACT nasal spray Administer 1 spray into each nostril Once per day. 7 Active gabapentin (Neurontin) 100 MG capsule Take 1 capsule by mouth 3 times daily. 4 Active QUEtiapine (SEROquel) 25 MG tablet 25 mg. 4 Active sacubitril-vals teresita (Entresto) 24-26 MG tablet Take 1 tablet by mouth 2 times daily. 4 Active zaleplon (Sonata) 10 MG capsule 4 Active Active Problems Problem Noted Date Diagnosed Date Chronic HFrEF (heart failure with reduced ejection fraction) 11/30/2023 Mixed hyperlipidemia 11/30/2023 Asthma 08/30/2023 HFrEF (heart failure with reduced ejection fract ion) 08/22/2023 Overview (08/30/2023): Last Assessment & Plan: HFrEF-EF 45-50% on echocardiogram February 2023. Nonischemic etiology given cardiac CT scan 06/2023 showing normal coronary arteries. GDMT Betablocker: initiate coreg JERZY Inhibitor-BERNADINE/ARB/ARNI: start entresto 24-26 mg BID Diuretic: none Aldosterone antagonist: none SGLT2 inhibitors: none ICD: Not a candidate due to LVEF. Plan: 1. Optimize GDMT and start coreg 3.125 mg BID and entresto 24-26 mg BID. Prescription for home bp cuff sent. 2. Labs in 1 week 3. Cardiac MRI to rule out infiltrative disease as a cause of his cardiomyopathy 4. Appears euvolemic on physical exam today. I've asked the patient to call if they develop worsening symptoms of heart failure such as increased shortness of breath, new or worsening cough, increased swelling in the legs or ankles, or weight gain of more than 2 pounds in one day or 4 pounds in one week. Trigger middle finger of right hand 08/18/2022 Prediabetes 07/06/2021 COVID-19 06/24/2021 Chest pain 07/14/2020 Overview (08/30/2023): Last Assessment & Plan: The patient has a history of atypical chest pain. In 2019 the patient underwent an echocardiogram, stress test, and nuclear stress test for episodes of chest discomfort. Echocardiogram showed normal LV function and nuclear stress test showed no evidence of ischemia. Given his symptoms and risk factors for CAD, we will need to consider the possibility of underlying coronary artery disease as a cause of his symptoms. Therefore, the patient has an intermediate pretest probability for the presence of obstructive coronary artery disease (2020 ACC chest pain guidelines). The patient had a nuclear stress test in the past that did not show any evidence of ischemia or infarct. As such, given his symptoms, we will proceed with a cardiac CT scan in order to evaluate for any obstructive coronary artery disease as a cause of his symptoms (the use of a cardiac CT scan for evaluation of possible coronary artery disease is recommended by 2020 ACC chest pain guidelines). I will also have him update an echocardiogram to evaluate his LV function and assess for any structural heart disease. We discussed his chest pain in depth. The patient's heart rate is elevated today, however the patient is extremely anxious. No changes to medications. His severe anxiety may be also contributing to his symptoms and he will continue to follow with his primary care provider regarding his treatment for anxiety and depression. 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 He is currently on atorvastatin 20 mg orally daily. His last cholesterol levels were acceptable, specifically his LDL was noted to be 67. We will continue his current therapy. I have reviewed with the patient the importance of a heart healthy lifestyle which includes eating a low- fat low-salt diet, getting regular exercise, maintaining a healthy weight, not smoking, and following up with routine medical care. Obstructive sleep apnea 06/01/2018 Overview (08/30/2023): [facility] Home Polysomnogram: Date 05/29/2018; AHI 20, Unclassified apneas 1; Obstructive apneas 10; Central apneas 1; Mixed apneas 1; hypopneas 46; average oxygen saturation 91% (lowest 76% with saturations <88% for 5% or more of study) - Obstructive Sleep Apnea - moderate; mostly hypopneas and obstructive apneas; with sleep related hypoventilation by 2019 home polysomnogram. Vitamin D deficiency 05/05/2018 Hemorrhoids 12/09/2017 Avascular necrosis of bone of left hip 8 Allergic rhinitis 08/23/2017 Anxiety 08/23/2017 Carpal tunnel syndrome, bilateral 08/23/2017 Chronic back pain 08/23/2017 Insomnia 08/23/2017 Overview (08/30/2023): F/u [place] Encounters Date Type Department Care Team Description 08/21/2024 3:30 PM EDT Office Visit [facility] [address] [place] [address] Emmanuel Zazueta DMD 08/20/2024 2:30 PM EDT Office Visit [facility] [address] [place] [address] Emmanuel Zazueta DMD from Last 3 Months Social History Tobacco Use Types Packs/Day Years Used Date Smoking Tobacco: Never Smokeless Tobacco: Never Tobacco Cessation:Counseling Given: Not Answered Alcohol Use Standard Drinks/Week Comments Yes 6 (1 standard drink = 0.6 oz pur e alcohol) Sex and Gender Information Value Date Recorded Sex Assigned at Male 03/22/2022 10:25 AM EDT Legal Sex Male 10:25 AM EDT Gender Identity Male 03/22/2022 10:25 AM EDT Sexual Orientation Choose not to disclose 2021 10:25 AM EDT Last Filed Vital Signs Vital Sign Reading Time Taken Comments Blood Pressure 130/86 08/21/2024 3:38 PM EDT Pulse 69 08/21/2024 3:38 PM EDT Temperature - - Respiratory Rate - - Oxygen Saturation - - Inhaled Oxygen Concentration - - Weight - - Height - - Body Mass Index - - Plan of Treatment Health Maintenance Due Date Last Done Comments Anal Pap 1955 CT Colonography 1955 Colonoscopy 1955 Colorectal Cancer Screening 1955 Dental Oral Exam 1955 Dental Prophylaxis 1955 Dental X-Ray: Bitewings 1955 Dental X-Ray: Full Mouth 1955 Depression Screening 1955 Diabetes: Hemoglobin A1C 1955 FIT DNA/Cologuard 1955 FIT 1955 FOBT 1955 Lipid Panel 1955 SDOH Screening 1955 Sigmoidoscopy 1955 Alcohol/Substance Use Screening 1967 Hepatitis C Screening 1973 Hepatitis A Vaccines (1 of 2 - Risk 2-dose series) 1974 Zoster Vaccines (1 of 2) 2005 Hepatitis B Vaccines (1 of 3 - Risk 3-dose series) 2015 RSV Patients and Patients Aged 60 years or older (1 - Risk 60-74 years 1-dose series) 2015 Pneumococcal Vaccine: 50+ Years (2 of 2 - PCV) 11/23/2023 11/22/2022 COVID-19 Vaccine (3 - 2023-2 5 season) 2024 08/19/2020, 07/29/2020 Influenza Vaccine (#1) 2024 Tobacco Screening 08/21/2025 08/21/2024 DTaP/Tdap/Td Vaccines (3 - T d or Tdap) 07/08/2033 07/08/2023, 12/09/2017 HIB Vaccines Aged Out No longer eligi ble based on patient's age to complete this topic HPV Vaccines Aged Out No longer eligi ble based on patient's age to complete this topic IPV Vaccines Aged Out No longer eligi ble based on patient's age to complete this topic Meningococcal Vaccine Aged Out No low caleb eligible based on patient's age to complete this topic RSV under 20 months Aged Out No longe r eligible based on patient's age to complete this topic Rotavirus Vaccines Aged Out No longer eligible based on patient's age to complete this topic Procedures Procedure Name Priority Date/Time Associated Diagnosis Comments CASE PRESENTATION, DETAILED AND EXTENSIVE TREATMENT PLANNING Routine 08/21/2024 3:30 PM EDT 7 ADD TOOTH TO EXISTING PARTIAL DENTURE Routine 08/21/2024 3:30 PM EDT 8 ADD TOOTH TO EXISTING PARTIAL DENTURE Routine 08/21/2024 3:30 PM EDT DENTURE FOLLOWUP Routine 08/20/2024 2:30 PM EDT from Last 3 Months Insurance DENTAL - [facility]
--- OUTSIDE RECORDS SUMMARY | 2024-08-31 12:49 | XMS_ITS | Data Portability ---
Author Organization [place] [facility], Allergy Address [address] [place] [phone] Care Team Providers Care Resident Assistant Name Role Phone TANVINAPOLEON MIRIAM Primary Care Provider Assessment Encounter Date Assessment Date Assessment LastModified by Organization Details LastModified Time 06/28/2024 06/28/2024 1. Rhinitis medicamentosa 69yo gentleman who has nasal congestion and has been using VICs nightly along with flonase. On exam, he has significant dryness, pale mucosa, and crusting inside his nose. I recommend he discontinue the VICS vapor rub and start saline irrigations and vaseline inside his nose. - Vaseline + nasal irrigations 1-2x daily 2. Tinnitus Otomicroscopic exam is normal today. Hearing test + follow-up in 3 months [email or web address] Not available 06/28/2024 09:44:39 Plan of Treatment Reminders Order Date Submit Date Provider Last Modified By Organization Details Last Modified Time Details Appointments Hearing Test 2024 09:00A M Hearing Test Not available Not available Not available Establish ed 20 2024 09:50A M RADHA VOSS MD Not available Not available Not available Lab None recorded. Referral None recorded. Procedures None recorded. Surgeries None recorded. Imaging None recorded. Medication Orders None recorded. Patient TargetsNo targets recorded. Patient InstructionsNo instructions recorded. Reason for Referral None Reported. Problems Name Problem SNOMED Code Status Onset Date Resolution Date Notes Provider Name and Address Organization Details Recorded Time Obstructi ve sleep apnea syndrome 04638832 Active 2021 Obstructi ve sleep apnea (adult) (pediatri c); Note: Date Diagnosed : 01/11/2022 11:55 AM (G47.33) Not Available [facility] 4 02:12:48 Deviated nasal septum 423980121 Active 2021 Deviated nasal septum; Note: Date Diagnosed : 01/11/2022 11:55 AM (J34.2) Not Available [facility] 4 02:14:21 Dysphonia 25592296 Active 2021 Hoarsenes s; Note: Date Diagnosed : 01/11/2022 11:55 AM (R49.0) Not Available [facility] 4 02:13:37 Sensorine ural hearing loss of bilateral ears 100779121 Active 2021 Sensorine ural hearing loss, bilateral ; Note: Date Diagnosed : 01/11/2022 11:27 AM (H90.3) Not Available [facility] 4 02:12:51 Bilateral tinnitus 36060326136 02 Active 2021 Tinnitus, bilateral ; Note: Date Diagnosed : 01/11/2022 11:27 AM (H93.13) Not Available [facility] 4 02:14:26 Chronic rhinitis 06024956 Active 2021 Chronic rhinitis; Note: Date Diagnosed : 2 11:42 AM (J31.0) Not Available [facility] 4 02:13:26 Rhinitis medicamen tosa 95780332 Active 2024 RADHA VOSS MD [address] [place] [address], [phone] , [facility] 5 09:42:37 Problem Notes None recorded. Procedures Surgical History Date Name Laterality Status Provider Name and Address Organization Details Recorded Time 06/28/19 25 otomicroscopy completed RADHA VOSS MD [address] [place] [address], [phone], [facility] 06/28/2024 09:42:01 06/28/19 25 Nasal Endoscopy completed RADHA VOSS MD [address] [place] [address],[address], [phone], [facility] 06/28/2024 09:42:28 Imaging Results None recorded. Procedure Notes None recorded. Medical Equipment None Reported. Medications Name Sig Start Date Stop Date Status Note LastModified by Organization Details LastModified Time quetiapine 25 mg tablet active Not Available Not Available Not Available cyclobenzapr ine 10 mg tablet active Not Available Not Available Not Available carvedilol 6.25 mg tablet active Not Available Not Available Not Available atorvastatin 20 mg tablet active Not Available Not Available Not Available ibuprofen 800 mg tablet 2021 active Medication ID: [id number] Primitivo d Name: ibuprofen S end Method: E-Prescribe d Subs Allowed: subs OK Medicati onGenericNa me: ibuprofen Not Available Not Available Not Available clonazepam 1 mg tablet active Not Available Not Available No t Available aspirin 81 mg tablet,delay ed release active Not Available Not Available N ot Available tramadol 50 mg tablet 2021 active Medication ID: [id number] Primitivo d Name: tramadol Se nd Method: E-Prescribe d Subs Allowed: subs OK Medicati onGenericNa me: tramadol Not Available Not Available Not Available triamcinolon e acetonide 0.1 % topical cream active Not Available Not Available Not Available acetaminophe n ER 650 mg tablet,exten ded release active Not Available Not Available Not Available cephalexin 500 mg capsule active Not Available Not Available Not Available doxepin 100 mg capsule active Not Available Not Available N ot Available zaleplon 10 mg capsule active Not Available Not Available N ot Available gabapentin 100 mg capsule active Not Available Not Available Not Available ibuprofen 600 mg tablet active Not Available Not Available Not Available albuterol sulfate HFA 90 mcg/actuatio n aerosol inhaler active Not Available Not Available Not Available morphine 15 mg immediate release tablet active Not Available Not Available Not Available fluticasone propionate 50 mcg/actuatio n nasal spray,suspen constantine 2 puff once a day active Not Available Not Available No t Available naproxen 500 mg tablet active Not Available Not Available No t Available oxycodone 5 mg tablet active Not Available Not Available No t Available cyclobenzapr ine 5 mg tablet active Not Available Not Available Not Available duloxetine 20 mg capsule,hamzah yed release active Not Available Not Available Not Available duloxetine 30 mg capsule,hamzah yed release 2021 active Medication ID: [id number] Primitivo d Name: duloxetine Send Method: E-Prescribe d Subs Allowed: subs OK Special Instruction : TAKE 1 CAPSULE BY MOUTH EVERY MORNING Med icationGene ricName: duloxetine Not Available Not Available Not Available duloxetine 60 mg capsule,hamzah yed release active Not Available Not Available Not Available Symbicort 80 mcg-4.5 mcg/actuatio n HFA aerosol inhaler active Not Available Not Available Not Available diclofenac 1 % topical gel active Not Available Not Available Not Available cholecalcife rol (vitamin D3) 50 mcg (2,000 unit) tablet active Not Available Not Available Not Available Entresto 24 mg-26 mg tablet active Not Available Not Available Not Available Vitals Date Recorded Body height Body mass index (BMI) Body weight Provider Name and Address Organization Details Last Updated DateTime 06/28/2024 170.18 cm 29.1 kg/m2 05130.18 g [place] [facility] [place] [facility] 06/28/2024 08:53:27 Social History None recorded. Functional Status None recorded. Mental Status None recorded. Family History Nothing Reported. Medical History No medical history recorded. Past Encounters Encounter ID Performer Location Encounter Start Date Encounter Closed Date Diagnosis/Indication Diagnosis SNOMED-CT Code Diagnosis ICD10 Code Diagnosis Note [id number] RADHA VOSS MD [facility] [address] [phone] 06/28/2024 08:40:44 06/28/2024 09:11:15 Rhinitis medicamentosa 31403920 J31.0 Bilateral tinnitus 32497 30342 102 H93.13 Health Concerns Section Related Observation LastModified by Organization Detai ls LastModified Time None Recorded Concern Status LastModified by Organization Details LastModified Time None Recorded Advance Directives Directive None Recorded Payers Encounter Date Sequence Insurance Name Policy Number Policy Whitfield Covered Member ID Whitfield Member ID Guarantor Name 06/28/2024 1 [facility] - DOS ON OR AFTER 2022 - ASSISTED OPTIONS AND ONE CARE (MEDICARE REPLACEMENT/ADV ANTAGE - PPO) Leandro Mcneil [id number] Leandro Mcneil Notes Date Note Type Note Provider Name and Address Organization Details Recorded Time 06/28/2024 text/html 69yo gentleman who presents today for evaluation of nasal congestion, dryness and tinnitus. He has had congestion for many years. He reports posterior nasal drainage, dryness in the nose, difficulty breathing, pressure. He uses vics every night and also uses flonase with minimal benefit. He reports ongoing tinnitus bilaterally. He has not had a hearing test. He denies any change in otorrhea, dizziness, vertigo, otalgia, otologic infections, otologic surgeries. RADHA VOSS MD [address] [place] [address], [phone], [facility] 06/28/2024 09:45:03
--- OUTSIDE RECORDS SUMMARY | 2024-08-31 12:49 | XMS_ITS | Encounter Summary ---
Author Organization [employer] Address [address] [place] [address] Care Team Providers Care Food Production Supervisor Name Role Phone Unavailable Primary Care Provider Unavailabl e Reason for Visit * Reason Onset Date Comments case back from lab??/appt 02/15/2024 Encounter Details Date Type Department Care Team (Late st Contact Info) Description 02/15/2024 Telephone [facility] [address] [place] [address] Emmanuel Zazueta DMD [address] [place] [address] case back from lab??/appt Social History Tobacco Use Types Packs/Day Years Used Date Smoking Tobacco: Never Smokeless Tobacco: Never Alcohol Use Standard Drinks/Week Comments Yes 6 (1 standard drink = 0.6 oz pur e alcohol) Sex and Gender Information Value Date Recorded Sex Assigned at Male 03/22/2022 10:25 AM EDT Legal Sex Male 10:25 AM EDT Gender Identity Male 03/22/2022 10:25 AM EDT Sexual Orientation Choose not to disclose 2021 10:25 AM EDT documented as of this encounter Miscellaneous Notes * Telephone Encounter - Emmanuel Zazueta DMD - 02/15/2024 10:29 AM EDT The case is here. I talked to front man to schedule the appointment for patient * Telephone Encounter - Bita Sosa - 02/15/2024 10:02 AM EDT Patient calling in with concern that has not been scheduled for next denture appt. Checking in on status if back from lab. According to patient, was quoted 2 weeks. Please reach out to patient. Wouldlike to hear from office documented in this encounter Plan of Treatment Not on file documented as of this encounter Visit Diagnoses Not on filedocumented in this encounter
--- OUTSIDE RECORDS SUMMARY | 2024-08-31 12:50 | XMS_ITS | Clinical Summary ---
Author Organization [facility] Address [address] [place] [address] Phone Care Team Providers Care Medical Communication Specialist Name Role Phone Jorge Luis Falk MD Primary Care Provider Allergies No known active allergies Medications aspirin 81 mg EC tablet Take 1 Tablet by mouth daily. 03/02/20 24 Active clonazePAM (KlonoPIN) 1 mg tablet Take 1.5 mg by mouth 2 times daily. Active doxepin (SINEquan) 100 mg capsule Take 1 Capsule by mouth at bedtime. Active sacubitriL-chandler sartan (Entresto) 24-26 mg per tablet TAKE 1 TABLET BY MOUTH TWICE DAILY 180 tablet 1 05/28/19 25 Active DULoxetine (CYMBALTA) [address] capsule TAKE 1 CAPSULE BY MOUTH DAILY 90 capsule 06/08/19 25 Active gabapentin (NEURONTIN) 100 mg capsule Take 1 capsule (100 mg total) by mouth 3 (three) times a day. 90 each 3 07/03/19 25 Active acetaminophen (TYLENOL 8 HOUR) 650 mg 8 hr tablet Take 1 tablet (650 mg total) by mouth every 8 (eight) hours if needed for mild pain. for pain 90 tablet 3 07/03/19 25 Active albuterol HFA (PROAIR HFA ; PROVENTIL HFA ; VENTOLIN HFA) 90 mcg/actuation inhaler Inhale 2 puffs by mouth every 4 (four) hours if needed for wheezing. 6.7 g 3 07/03/19 25 Active cholecalcifero l (VITAMIN D-3) 50 mcg (2,000 unit) tablet Take 1 tablet (2,000 Units total) by mouth 1 (one) time each day. 90 tablet 3 07/03/19 25 Active atorvastatin (LIPITOR) 20 mg tablet Take 1 tablet (20 mg total) by mouth 1 (one) time each day. 90 tablet 1 07/03/19 25 Active budesonide-for moteroL (Symbicort) 80-4.5 mcg/actuation inhaler Inhale 2 puffs by mouth 2 (two) times a day. Rinse mouth with water after use to reduce aftertaste and incidence of candidiasis. Do not swallow. 1 each 4 07/03/19 25 Active cyclobenzaprin e (FLEXERIL) 5 mg tabletIndicati ons:Chronic midline low back pain without sciatica Take 1 tablet (5 mg total) by mouth 2 (two) times a day if needed for muscle spasms. 45 tablet 3 07/03/19 25 Active carvediloL (COREG) 6.25 mg tablet TAKE 1/2 TABLET BY MOUTH TWICE DAILY WITH MEALS 90 tablet 1 08/17/19 25 Active carvediloL (COREG) 6.25 mg tablet TAKE 1/2 TABLET BY MOUTH TWICE DAILY WITH MEALS 02/17/20 24 025 Discontinued Active Problems Problem Noted Date Diagnosed Date Asthma-COPD overlap syndrome ([facility] V24, [facility] V28) 04/12/2024 Chronic HFrEF (heart failure with reduced ejection fraction) ([facility] V24, [facility] V28) 11/30/2023 Mixed hyperlipidemia 11/30/2023 HFrEF (heart failure with re duced ejection fraction) ([facility] V24, [facility] V28) 08/22/2023 Overview (04/12/2024): Last Assessment & Plan: HFrEF-EF 45-50% on [...] 07/06/2021 COVID-19 06/24/2021 Chest pain 07/14/2020 Overview (04/12/2024): Last Assessment & Plan: The patient has [...] with acute exacerbati on 10/24/2019 Overlap syndrome (CMS/HCC V24) 10/24/2019 PND (post-nasal drip) 10/24/2019 Dyslipidemia 03/07/2019 Overview (04/12/2024): Last Assessment & Plan: The patient has [...] medical care. Obstructive sleep apnea 06/01/2018 Overview (04/12/2024): SMS Home Polysomnogram: Date 05/29/2018; AHI 20, Unclassified apneas 1; Obstructive apneas 10; Central apneas 1; Mixed apneas 1; hypopneas 46; average oxygen saturation 91% (lowest 76% with saturations <88% for 5% or more of study) - Obstructive Sleep Apnea - moderate; mostly hypopneas and obstructive apneas; with sleep related hypoventilation by 2018 home polysomnogram. Vitamin D deficiency 05/05/2018 Hemorrhoids 12/09/2017 Avascular 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 (CMS/[facility] V24, CMS/[facility] V28) 10/14/2017 Allergic rhinitis 08/23/2017 Anxiety and depression 08/23/2017 Carpal tunnel syndrome, bilateral 08/23/2017 Chronic back pain 08/23/2017 Insomnia 08/23/2017 Overview (04/12/2024): F/u [place] Encounters Date Type Department Care Team Description 08/23/2024 Telephone Adult Medicine [address] [phone] Jorge Luis Falk MD Fitting for DME 07/27/2024 Telephone [facility] [address] [place] [address] Tre Lynn MD No Call No Show (Letter sent) 07/13/2024 Telephone Gastroenterology - [address] [place] [address] Grady Andres MD 07/03/2024 8:30 AM EST Office Visit Adult Medicine [facility] [address] [place] [address] Jorge Luis Falk MD Asthma-COPD overlap syndrome (CMS/HCC V24, CMS/HCC V28) (Primary Dx); HFrEF (heart failure with reduced ejection fraction) (CMS/HCC V24, CMS/HCC V28); Mixed hyperlipidemia; Anxiety and depression; Chronic midline low back pain without sciatica; Rotator cuff arthropathy of right shoulder; Screening for prostate cancer; Screening for colorectal cancer 07/03/2024 Telephone Adult Medicine [facility] [address] [place] [address] Jorge Luis Falk MD from Last 3 Months Immunizations Name Administration Dates Next Due Pfizer SARS-CoV-2 COVID-19, mRNA, LNP-S, preservative free 08/19/2020 Pneumococcal polysaccharide 23 valent (Pneumovax 23) 2yo and older 11/22/2022 Tdap Tetanus diptheria acell ular pertussis (Boostrix; Adacel) 7yo and older 12/09/2017 Surgical History Surgery Date Site/Laterality Comments BACK SURGERY 1990 PROCEDURE: HISTORICAL BACK SURGERY; COMMENT: [place] HERNIA REPAIR PROCEDURE: HISTORICAL HERNIA REPAIR/UMB BREAST LUMPECTOMY PROCEDURE: ---- BREAST LUMP BIOPSY ----; COMMENT: fatty tissue per patient CARPAL TUNNEL RELEASE Left PROCEDURE: HISTORICAL CARPAL TUNNEL REL OTHER SURGICAL HISTORY PROCEDURE: ---- OTHER ----; COMMENT: anal abscess drainage Medical History Medical History Date Comments Carpal tunnel syndrome, bilateral 08/23/2017 DX:Carpal tunnel syndrome, bilateral Chronic back pain 08/23/2017 DX:Chronic aida k pain Insomnia 08/23/2017 DX:Insomnia; COM MENT: F/u [place] Anxiety 08/23/2017 DX:Anxiety Allergic rhinitis 08/23/2017 DX:Allergic rh initis Avascular 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 (CMS/HCC V24, CMS/HCC V28) 10/14/2017 DX:Avascular necrosis of zoraida ne of left hip (HCC) Hemorrhoids 12/09/2017 DX:Hemorrhoids Chronic hepatitis C without hepatic coma (CMS/HCC V24, CMS/HCC V28) 12/14/2017 DX:Chronic hepatitis C without hepatic coma (HCC) Vitamin D deficiency 05/05/2018 DX:Vitamin D deficiency Asthma DX:Asthma Hyperlipidemia DX:Hyperlipidemi a HFrEF (heart failure with re duced ejection fraction) (CMS/HCC V24, CMS/HCC V28) 08/22/2023 DX:HFrEF (heart failure with reduced ejection fraction) (HCC) Family History Medical History Relation Name Comments Blindness Father Cataracts Father Glaucoma Father Heart attack Father Macular degeneration Neg Hx Strabismus Neg Hx Relation Name Status Comments Father Alive Mother Social History Tobacco Use Types Packs/Day Years Used Date Smoking Tobacco: Never Smokeless Tobacco: Never Tobacco Cessation:Counseling Given: Not Answered Alcohol Use Standard Drinks/Week Comments Yes 0 (1 standard drink = 0.6 oz pur e alcohol) Sex and Gender Information Value Date Recorded Sex Assigned at Not on file Legal Sex Male 12:59 AM EST Gender Identity Male 07/17/2024 8:47 AM EST Sexual Orientation Not on file Obstetrics History Last Filed Vital Signs Vital Sign Reading Time Taken Comments Blood Pressure 130/75 07/03/2024 8:25 AM EST Pulse 106 07/03/2024 8:25 AM EST Temperature 36.4 ??C (97.5 ??F) 07/03/2024 8:25 AM ES T Respiratory Rate 16 07/03/2024 8:25 AM EST Oxygen Saturation - - Inhaled Oxygen Concentration - - Weight 87.1 kg (192 lb) 07/03/2024 8:25 AM EST Height 170.2 cm (5' 7 ) 03/02/2024 10:48 AM EDT Body Mass Index 30.07 03/02/2024 10:48 AM EDT Plan of Treatment Health Maintenance Due Date Last Done Comments Zoster Vaccines (1 of 2) 2005 RSV Immunization Adult Patients (1 - Risk 60-74 years 1-dose series) 2015 Colorectal Cancer Screening: Colonoscopy 04/25/2022 Social Influencers of Health Screening 04/25/2022 Pneumococcal Vaccine: 50+ Years (2 of 2 - PCV) 11/23/2023 11/22/2022 COVID-19 Vaccine ( - 2023-2 5 season) 2024 08/19/2020, 07/29/2020 Influenza Vaccine (Season Ended) 2025 Hypertension/CHF/CAD Annual BMP Blood Test 02/19/2025 02/20/2024, 02/20/2024, 12/16/2023 Depression Screening 03/02/2025 03/02/2024 Falls Risk Assessment 03/02/2025 03/02/2024 Cholesterol Screening (Lipid Panel) 12/15/2028 12/16/2023, 12/16/2023 DTaP,Tdap,and Td Vaccines (3 - Td or Tdap) 07/08/2033 07/08/2023, 12/09/2017 Hepatitis C Screening Completed 12/19/2017 HIB Vaccines Aged Out No longer eligi ble based on patient's age to complete this topic HPV Vaccines Aged Out No longer eligi ble based on patient's age to complete this topic Hepatitis A Vaccines Aged Out No long er eligible based on patient's age to complete this topic Hepatitis B Vaccines Aged Out No long er eligible based on patient's age to complete this topic IPV Vaccines Aged Out No longer eligi ble based on patient's age to complete this topic MMR Vaccines Aged Out No longer eligi ble based on patient's age to complete this topic Meningococcal ACWY Vaccine Aged Out N o longer eligible based on patient's age to complete this topic Meningococcal B Vaccine Aged Out No l onger eligible based on patient's age to complete this topic RSV Immunization Patients Under 20 months Aged Out No longer eligible b ased on patient's age to complete this topic Varicella Vaccines Aged Out No longer eligible based on patient's age to complete this topic Procedures Procedure Name Priority Date/Time Associated Diagnosis Comments DEPRESSION SCREENING Routine 03/02/2024 FALLS RISK ASSESSMENT Routine 03/02/2024 ANNUAL BMP BLOOD TEST Routine 02/20/2024 LIPID PANEL Routine 12/16/2023 HEPATITIS C SCREENING Routine 12/19/2017 from Last 3 Months or Most Recently Relevant to Health Maintenance Results * Falls Risk Assessment (03/02/2024) Falls Risk Assessment Abstracted Historical Provider HEALTH MAINTENANCE Final Result * Depression Screening (03/02/2024) Pathologist [facility] Depression Screening Abstracted [facility] Provider HEALTH MAINTENANCE Final Result * Annual BMP Blood Test (02/20/2024) Pathologist [facility] Annual BMP Blood Test Abstracted [facility] Provider HEALTH MAINTENANCE Final Result * Lipid panel (12/16/2023) [facility] LDL/HDL Ratio 3 0 - 4 Triglycerides 84 0 - 150 mg/dL Cholesterol 189 0 - 200 mg/dL HDL 73 >=40 mg/dL LDL Cholesterol 100 0 - 100 mg/dL Blood Venous blood specimen / Unknown Result [facility] Historical Provider LAB BLOOD ORDERABLES Wilma l Result * Hepatitis C Screening (12/19/2017) Pathologist [facility] Hepatitis C Screening Abstracted Result [facility] Historical Provider HEALTH MAINTENANCE Final Result from Last 3 Months or Most Recently Relevant to Health Maintenance Insurance Member Subscriber Plan / Payer (Ef fective 2023-Present) Name:Leandro Mcneil Relation to Subscriber:Self Name:Leandro Mcneil Payer ID:[id number] Group ID:[id number] Type:Not on file Address: [address] [facility] [place] [address] Care Teams Medical Communication Specialist Relationship Specialty Start Date End Date Jorge Luis Falk MD [address] [place] [address] PCP - General Internal Medicine 12/07/21
--- OUTSIDE RECORDS SUMMARY | 2024-08-31 12:50 | XMS_ITS | Encounter Summary ---
Author Organization [employer] Address [address] [facility] [address] [place] [address] Care Team Providers Care Gravel Roofer Name Role Phone Unavailable Primary Care Provider Unavailabl e Encounter Details Date Type Department Care Team (Latest Contact Info) Description 04/03/2021 Abstract [facility] CONVERSIONS Dental, Provider, DDS Social History Tobacco Use Types Packs/Day Years Used Date Smoking Tobacco: Never Assessed Sex and Gender Information Value Date Recorded Sex Assigned at Male 03/22/2022 10:25 AM EDT Legal Sex Male 10:25 AM EDT Gender Identity Male 03/22/2022 10:25 AM EDT Sexual Orientation Choose not to disclose 2021 10:25 AM EDT documented as of this encounter Plan of Treatment Not on file documented as of this encounter Visit Diagnoses Not on filedocumented in this encounter
--- OUTSIDE RECORDS SUMMARY | 2024-08-31 12:50 | XMS_ITS | Clinical Summary ---
Author Organization [facility] Address [address] [place] [address] Care Team Providers Care Truckman Name Role Phone Unavailable Primary Care Provider Unavailabl e Source Comments PLEASE NOTE, if this patient is a minor, it may be UNLAWFUL to discuss sensitive information that is contained in these records (such as FAMILY PLANNING, MENTAL HEALTH or SUBSTANCE ABUSE) with the minor patient's parent or other person without the patient's specific authorization.[facility] Allergies No known active allergies Medications hydrOXYzine (VISTARIL) 50 mg capsuleIndicati ons:Anxiety and depression Take 1 Cap by mouth 3 (three) times daily as needed for anxiety. 90 Cap 0 6 Active triamcinolone (KENALOG) 0.1 % ointmentIndicat ions:Dermatitis Apply topically 2 (two) times daily. 15 g 3 6 Active cetirizine (ZYRTEC) 10 mg tabletIndicatio ns:Environmenta l allergies Take 1 Tab by mouth once daily as needed for allergies 30 Tab 3 7 Active fluticasone (FLONASE) 50 mcg/actuation nasal sprayIndication s:Environmental allergies Place 1 [place] in both nostrils once daily 16 mL 3 7 Active famotidine (PEPCID) 20 mg tabletIndicatio ns:Dyspepsia Take 1 Tab by mouth 2 (two) times daily 60 Tab 3 7 Active Family History Medical History Relation Name Comments Stroke Father Relation Name Status Comments Father Alive Mother Alive Social History Tobacco Use Types Packs/Day Years Used Date Smoking Tobacco: Never Alcohol Use Standard Drinks/Week Comments Yes 0 (1 standard drink = 0.6 oz pur e alcohol) everyday. Social Connections Answer Date Recorded Social Connections and Isolation 0 01/13/2019 Financial Resource Strain Answer Date R ecorded Financial Resource Strain 0 2018 Stress Answer Date Recorded Stress 0 01/13/2019 Physical Activity Answer Date Recorded Physical Activity 0 01/13/2019 Food Insecurity Answer Date Recorded Food 0 01/13/2019 Transportation Needs Answer Date Record ed Transportation 0 01/13/2019 Housing Stability Answer Date Recorded Housing 0 01/13/2019 Safety and Environment Answer Date Thor rded Safety 0 01/13/2019 Utilities Answer Date Recorded Utilities 0 01/13/2019 Employment Answer Date Recorded Employment 0 01/13/2019 Sex and Gender Information Value Date Recorded Sex Assigned at Not on file Legal Sex Male 11:36 AM PDT Gender Identity Not on file Sexual Orientation Not on file Last Filed Vital Signs Vital Sign Reading Time Taken Comments Blood Pressure 130/78 09/01/2016 10:18 AM EDT Pulse 92 09/01/2016 10:18 AM EDT Temperature 36.8 ??C (98.2 ??F) 09/01/2016 10:18 AM E DT Respiratory Rate 23 09/01/2016 10:18 AM EDT Oxygen Saturation - - Inhaled Oxygen Concentration - - Weight 94.3 kg (208 lb) 09/01/2016 10:18 AM EDT Height 168.5 cm (5' 6.34 ) 09/01/2016 10:18 AM E DT Body Mass Index 33.23 09/01/2016 10:18 AM EDT Plan of Treatment Not on file Insurance [facility] Member Subscriber Plan / Payer ( fective 2015-Present) Name:Leandro Mcneil Relation to Subscriber:Self Name:Leandro Mcneil Payer ID:[id number] Group ID:[id number] Type:Medicaid Address: [facility] [address] [place] [address] [facility]
--- OUTSIDE RECORDS SUMMARY | 2024-08-31 12:50 | XMS_ITS | Encounter Summary ---
Author Organization [facility] [employer] Address [address] [place] [address] Care Team Providers Care Oxyacetylene Welder Name Role Phone Unavailable Primary Care Provider Unavailabl e Encounter Details Date Type Department Care Team (Latest Contact Info) Description 08/07/2018 Abstract [facility] CONVERSIONS Dental, Provider, DDS Social History Tobacco [...]
--- OUTSIDE RECORDS SUMMARY | 2024-08-31 12:50 | XMS_ITS | Encounter Summary ---
Author Organization [facility] Address [address] [place] [address] Care Team Providers Care Research Program Intern Name Role Phone Jorge Luis Falk MD Primary Care Provider [phone] Reason for Visit * Reason Onset Date Comments Fitting for DME 08/23/2024 Encounter Details Date Type Department Care Team (Late st Contact Info) Description 08/23/2024 Telephone Adult Medicine [address] [address] Jorge Luis Falk MD [address] [place] [id number] Fitting for DME Social History Tobacco Use Types Packs/Day Years Used Date Smoking Tobacco: Never Smokeless Tobacco: Never Alcohol Use Standard Drinks/Week Comments Yes 0 (1 standard drink = 0.6 oz pur e alcohol) Sex and Gender Information Value Date Recorded Sex Assigned at Not on file Legal Sex Male 12:59 AM EST Gender Identity Male 07/17/2024 8:47 AM EST Sexual Orientation Not on file documented as of this encounter Progress Notes * Jana Cannon, FATIMAH - 08/27/2024 9:05 AM EDT His insurance will not pay for a posturepedic mattress and frame they only cover mattresses for hospital bed Called pt to let him know this as this is not a DME He said that [facility] told him they would pay for a posture pedic mattress he only needs a prescription ,he does not know the name of the person that told him that he can get this He does not know the name of the lady that told him that [facility] would pay for the mattress and frame He gave me a # of [phone] I called [facility] to see if they cover this or who told him they would cover this Spoke to Diana cynthia nurse went out to see pt 08/23/2024 About this Arsenio Davis (nurse ) she sent her a message to her to call me back directly I also call Angelica Huitron the primary care home staging specialist [facility] to call me back * Maye Kohler - 08/23/2024 10:47 AM EDT DME REQUEST Name of Product: Mattress, posturepedic Specific information about product needs full / sheppard mattress / frame # Needed 1 Reason patient is asking for this supply? Patient needs for back issues, [facility] is calling Have you received this supply before? If yes , when?: No Have you discussed the need for this supply with a provider at a recent visit? If yes, with who andwhen? Yes. Mentioned back pain When completed: Fax to other office/MD/pharmacy at fax # [phone] Have you told the patient it will take 7-10 days for completion of this request? Yes documented in this encounter Plan of Treatment Not on file documented as of this encounter Visit Diagnoses Not on filedocumented in this encounter Care Teams Research Program Intern Relationship Specialty Start Date End Date Jorge Luis Falk MD [address] [place] [address] PCP - General Internal Medicine 12/07/21 documented as of this encounter
--- OUTSIDE RECORDS SUMMARY | 2024-08-31 12:50 | XMS_ITS | Encounter Summary ---
Author Organization [employer] Address [address] [facility] [address] [address] [place] [address] Care Team Providers Care Qa Engineer Name Role Phone Unavailable Primary Care Provider Unavailabl e Encounter Details Date Type Department Care Team (Late st Contact Info) Description 11/15/2022 Abstract [facility] [address] [place] [address] Emmanuel Zazueta, DMD [address] [place] [address] Social History Tobacco Use Types Packs/Day Years [...] not to disclose 2021 10:25 AM EDT COVID-19 Exposure Response Date Recorded In the last 10 days, have yo u been in contact with someone who was confirmed or suspected to have Coronavirus/COVID-19? No / Unsure 11/17/2022 9:19 AM EDT documented as of this encounter Plan of Treatment Not on file documented as of this encounter Visit Diagnoses Not on filedocumented in this encounter
== END 2024-08-31 12:13 | disposition home or self-care (01) ==
PROVIDERS: Emergency Provider Emergency Medicine Emergency Medical Services; PCP Internal Medicine
DX: K64.8 Other hemorrhoids (principal); M54.50 Low back pain, unspecified; M25.552 Pain in left hip; Z79.899 Other long term (current) drug therapy
CPT/HCPCS: 36415; 72100; 73502; 80053; 85025; 99284

== ENCOUNTER → 2024-08-31 09:22 | Outpatient (BNV) | payer OTHER, SELFPAY | PROVIDERS: PCP Internal Medicine; Visit Provider Radiology Diagnostic Radiology | DX: Z96.642 Presence of left artificial hip joint (principal); M25.78 Osteophyte, vertebrae | CPT/HCPCS: 72100; 73502 ==

== ENCOUNTER 2024-10-10 06:45 | Emergency (ER) | payer OTHER, SELFPAY ==
[2024-10-10 07:05] VITALS: BP 148/91; PULSE 100; RESP 20; TEMP 36.6; O2SAT 97; BMI 29.2
--- NOTE | 2024-10-10 09:03 | PC.NURSE ---
spoke w pt - no answer when called back to a bed, per pt he had to leave to p/u his daughter, plan to return later.
== END 2024-10-10 09:05 | disposition left against medical advice (07) ==
PROVIDERS: Emergency Provider Emergency Medicine; PCP Internal Medicine
DX: M54.50 Low back pain, unspecified (principal); Z53.21 Procedure and treatment not carried out due to patient leaving prior to being seen by health care provider
CPT/HCPCS: 99281

== ENCOUNTER 2024-10-29 10:21 | Emergency (ER) | payer OTHER, SELFPAY ==
--- NOTE | ~2024-10-29 | CT_ITS ---
EXAM: CT left femur without contrast TECHNIQUE: Axial imaging was performed from just above the left hip joint through the proximal tibia without contrast. Coronal and sagittal reformatted images were generated from the original axial data set. ALARA: The examination used one or more of the following radiation dose reduction techniques: Automated exposure control, iterative reconstruction, and/or adjustment of mA and/or KV. CONTRAST: 0 INDICATION: Posterior thigh tenderness, ecchymosis DLP: 421 mGY*cm PRIOR: June 11, 2024 x-ray FINDINGS: SOFT TISSUES: There is thickening and faint calcification in the hamstring tendon. Minimal atherosclerotic calcification is present in the arterial vasculature of the left leg. No abnormalities are noted along the major neurovascular bundles. There is no muscle fatty change. There is fat stranding along the fascial planes in the posterior thigh encircling semimembranosus tendon and muscle, and coursing between the adductor mirza and semitendinosus muscle. There is also minimal extension along the lateral aspect of long head biceps muscle in the upper half of thigh. SKELETAL STRUCTURES: Postoperative changes are present related to total hip arthroplasty. Acetabular cup is secured with a single screw through the roof. There is multi-focal lucency at the bone interface along the anterior and superior aspect of the acetabular cup. There is no sign of cup migration. The femoral component is cementless. The femoral component demonstrates no sign of subsidence. There is no abnormal lucency at the bone metal interfaces. Bony structures are intact. The knee joint demonstrates mild medial compartment joint space narrowing. There are [id number]-[id number] tricompartmental osteophytes. There is no knee joint effusion. There is meniscal calcification in the lateral meniscus consistent with pyrophosphate deposition. There is a 7 mm ossified body in the intercondylar notch. PELVIC: Visualized pelvic contents is unremarkable aside from minimal diverticulosis sigmoid colon without evidence of inflammation. CT/CT femur LT wo IV con IMPRESSION: There is fat stranding along the fascial planes in the posterior thigh through the mid and proximal leg. This could be related to acute injury such as a strain or blunt trauma, ecchymosis, and infection/fasciitis is not ruled out. Postoperative changes are noted related to total hip arthroplasty. There is mild cystlike lucency along the anterior and superior aspect of the acetabular cup without evidence of cup migration. Correlate for symptoms. The femoral component appears intact without lucency along the femoral stem. 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 7 mm ossified body in the intercondylar notch is likely intra-articular. Mild atherosclerotic changes. Electronically signed by: Zbigniew Romero MD 10/29/2024 12:42 PM EDT
[2024-10-29 10:27] VITALS: BP 122/68; PULSE 120; RESP 20; TEMP 37.2; O2SAT 97; BMI 29.8
--- NOTE | 2024-10-29 11:28 | ED_ITS ---
HPI - Extremity Problem General Chief complaint: Extremity Problem Stated complaint: Left leg injury/ Pain Time Seen by Provider: 10/29/24 10:57 History of Present Illness ED Provider: Landon Nuñez MD HPI Narrative: [age] male who reports he was fishing about 2 weeks ago since that time he is had pain in the posterior left thigh/inferior buttock region. He does not recall any specific injury but thinks he may have pulled something when he was swinging the fishing line out. His has noticed black and blue behind the knee distal posterior thigh. Points to the mid and proximal hamstring region. Denies fever or chills takes aspirin daily no other blood thinners. No knee pain he has a history of left hip replacement remotely has difficulties specifically walking up steps Related Data Previous Rx's ?Medication ?Instructions ?Recorded acetaminophen 500 mg tablet 500 mg PO Q6H PRN fever or pain 11/10/21 (Tylenol Extra Strength) #14 tabs cyclobenzaprine 5 mg tablet 5 mg PO Q8H PRN pain (scale score 11/10/21 7-10) 5 days #14 tabs ibuprofen 800 mg tablet 800 mg PO Q8H PRN pain #14 tabs 11/10/21 lidocaine 5 % topical patch 1 patch topical DAILY PRN pain #30 11/10/21 (Lidoderm) ea tramadol 50 mg tablet 50 mg PO Q8H PRN pain, severe #7 11/10/21 tabs cyclobenzaprine 5 mg tablet 5 mg PO TID PRN muscle spasm #12 11/21/22 tabs naproxen 500 mg tablet 500 mg PO BID PRN pain #14 tabs 12/13/22 prednisone 20 mg tablet 20 mg PO DAILY 5 days #5 tabs 12/13/22 cyclobenzaprine 5 mg tablet 5 mg PO Q8H PRN pain (scale score 10/17/23 7-10) 5 days #14 tabs lidocaine 5 % topical patch 1 patch topical DAILY PRN pain #30 10/17/23 (Lidoderm) ea naproxen 500 mg tablet 500 mg PO BID PRN pain 10 days #20 10/17/23 tabs morphine 15 mg immediate release 15 mg PO Q6H PRN pain #10 tabs 01/04/24 tablet ibuprofen 600 mg tablet 600 mg PO Q6H PRN fever or pain 03/10/24 #30 tabs cyclobenzaprine 5 mg tablet 5 mg PO TID PRN muscle spasm 7 08/31/24 days #21 tabs prednisone 20 mg tablet 20 mg PO DAILY 7 days #7 tabs 08/31/24 Allergies Allergy/AdvReac Type Severity Reaction Status Date / Time No Known Allergies Allergy Verified 10/29/24 10:28 [facility] Past Medical History Medical History Hypertension Social History Social History Alcohol intake: current Alcohol intake frequency: a few times a week Alcohol type: hard liquor Smoked in Last 30 Days: No Use of substances other than those prescribed or required for medical reasons: No Advance Directives: No Advance Directives Information Provided: Yes Do you have a plan to hurt others: No Plan Current occupational status: retired and disabled 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 Head: Atraumatic Eyes: Anicteric, Normal conjunctiva. ENT: Moist mucosa, no pallor. ? Neck: Supple. Skin: ?Mild at least several day old ecchymosis distal posterior left thigh no skin breaks Respiratory: Breathing comfortably, No distress.Clear to auscultation bilaterally, symmetric chest expansion, No wheeze, rales, ronchi. Cardiovascular: Regular rate and rhythm. No murmurs or rub. Well perfused periphery, warm extremities. No edema. ? Abdominal: No FOCAL TENDERNESS. Soft, no objective distension. No palpable masses or obvious organomegaly. ?No guarding, no rebound tenderness or other peritoneal findings. : No flank tenderness. Neuro: Alert. Gross movement of all extremities intact. ? Psych: Calm. Cooperative. MSK: No grossly visible deformity. Moderately tender without gross deformity or obvious asymmetrical swelling left posterior thigh Vital signs: See flowsheet Medications Administered Discontinued Medications Generic Name Dose Route Start Last Admin Trade Name Annamaria PRN Reason Stop Dose Admin Acetaminophen 975 mg 10/29/24 11:00 10/29/24 11:35 Acetaminophen 325 Mg Tablet PO 10/29/24 11:01 975 mg ONCE ONE Administration Ketorolac Tromethamine 30 mg 10/29/24 11:00 10/29/24 11:35 Ketorolac Tromethamine 30 Mg/Ml Vial IM 10/29/24 11:01 30 mg ONCE ONE Administration Oxycodone HCl 5 mg 10/29/24 11:00 10/29/24 11:35 Oxycodone Hcl Immed Release 5 Mg Tablet PO 10/29/24 11:01 5 mg ONCE ONE Administration Medical Decision Making Medical Decision Making [facility] Narrative: [age] male with spontaneous discomfort and pain with hip extension over the last few days to weeks. No recollection of any blunt injury does have some resolving ecchymosis no overt objective swelling. Differential considered below. The patient is ambulatory neurovascularly intact his soft compartments he is not on any significant blood thinners other than aspirin there is no evidence clinically or historically of continued bleed or expansion of the thigh compartment. He is afebrile and I doubt infectious process. CT findings below reviewed by myself more suggestive of fascial/tenderness inflammation. Orthopedic follow up recommended especially given these nonspecific lucency near the acetabular cup of the femur replacement. CT: IMPRESSION: There is fat stranding along the fascial planes in the posterior thigh through the mid and proximal leg. This could be related to acute injury such as a strain or blunt trauma, ecchymosis, and infection/fasciitis is not ruled out. Postoperative changes are noted related to total hip arthroplasty. There is mild cystlike lucency along the anterior and superior aspect of the acetabular cup without evidence of cup migration. Correlate for symptoms. The femoral component appears intact without lucency along the femoral stem. 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 7 mm ossified body in the intercondylar notch is likely intra-articular. Mild atherosclerotic changes. Differential Diagnosis Differential Diagnoses: The differential diagnosis associated with the presentation includes Hematoma, biceps femoris rupture, strain or sprain, less likely femoral bony injury or fracture though this was considered. Lab Data 10/29/24 11:43 10/29/24 11:43 Labs: Lab Results 06/09/25 Range/Units 11:43 WBC 11.5 H (4.8-10.8) X10*3/uL RBC 4.27 L (4.60-5.80) X10*6/uL Hgb 14.3 (14.0-18.0) g/dl Hct 41.2 L (42.0-52.0) % MCV 96.5 (80.0-98.0) fL MCH 33.5 H (27.0-33.0) pg MCHC 34.7 (31.0-36.0) g/dl RDW 14.2 (11.0-16.0) % Plt Count 334 (160-400) X10*3/uL MPV 8.9 L (9.4-12.4) fL Immature Gran % (Auto) 0.3 (0.0-0.4) % Neut % (Auto) 82.6 H (45-73) % Lymph % (Auto) 8.8 L (20-40) % [place] % (Auto) 7.0 (2-11) % Eos % (Auto) 1.0 (0-4) % Baso % (Auto) 0.3 (0-2) % Lymph # (Auto) 1.0 L (1.2-4.9) X10*3/uL [place] # (Auto) 0.8 (0.1-1.2) X10*3/uL Eos # (Auto) 0.1 (0.0-0.4) X10*3/uL Baso # (Auto) 0.0 (0.0-0.2) X10*3/uL Abs Immat Gran (auto) 0.03 (0.00-0.03) X10*3/uL Absolute Neuts (auto) 9.5 H (2.0-8.3) x10*3/uL Absolute Nucleated RBC 0.000 (0.0-0.012) X10*3/uL Nucleated RBC % (auto) 0.0 (0.0-0.2) /100WBC PT 11.6 (10.9-12.4) SEC INR 1.0 (0.9-1.1) APTT 28.9 (26.0-36.8) SEC Sodium 139 (135-145) mmol/L Potassium 4.3 (3.3-5.1) mmol/L Chloride 104 (96-108) mmol/L Carbon Dioxide 28 (22-29) mmol/L Anion Gap 11 L (12-20) BUN 12 (9-16) mg/dL Creatinine 0.93 (0.5-1.4) mg/dL Estim Creat Clear Calc 78.6 Estimated GFR > 60 Random Glucose 156 H (60-115) mg/dL Calcium 9.0 (8.4-10.2) mg/dL Discharge Plan Discharge Clinical Impression: Hamstring strain Patient Disposition: Home, Self-Care Instructions: Hamstring Injury (ED), Muscle Strain (DC) Additional Instructions: _ DISCHARGE DIAGNOSES: Inflammatory changes of the hamstring muscle/tendon/fascia No signs of bony injury Nonspecific lucency seen your your hip prosthetic that needs to be evaluated nonemergent by orthopedic or your surgeon who performed this HISTORY OF PRESENTATION: ?Pain with walking up steps and ecchymosis to the back of the left leg EMERGENCY DEPARTMENT COURSE,TESTS, TREATMENTS: While in the ED today you had a CT scan and blood work. Did not show any significant signs of blood loss and your CT showed detailed findings below but in brief summary inflammatory changes of the soft tissue structures of the back of the left leg DISCHARGE MEDICATIONS: ?[We have made no changes to your regular medication regimen] we recommend getting [id number]-[id number]-[id number] diclofenac gel also called the Voltaren utilizing massage ice or heating pad as needed FOLLOW-UP: ?Call your primary or general physician soon as possible to discuss your symptoms, your ED visit and to discuss follow up plans Call the orthopedic service for follow up and or your surgeon who performed the left hip replacement INSTRUCTIONS ?& RETURN PRECAUTIONS: If any symptoms change first call your primary physician, if it is after-hours your primary doctors office should have a provider call worker person you can speak with. If the symptoms are severe or very concerning to you then call 911 or return to the ED. [07] Landon Nuñez MD Emergency Physician [facility] Prescriptions: No Action cyclobenzaprine 5 mg tablet 5 mg PO Q8H PRN (Reason: pain (scale score 7-10)) 5 Days Qty: 14 0RF ibuprofen 800 mg tablet 800 mg PO Q8H PRN (Reason: pain) Qty: 14 0RF lidocaine [Lidoderm] 5 % adhesive patch,medicated 1 patch topical DAILY MDD remove after 12 hours PRN (Reason: pain) Qty: 30 0RF Rx Instructions: leave on most painful area for up to 12 hrs tramadol 50 mg tablet 50 mg PO Q8H PRN (Reason: pain, severe) Qty: 7 0RF acetaminophen [Tylenol Extra Strength] 500 mg tablet 500 mg PO Q6H PRN (Reason: fever or pain) Qty: 14 0RF cyclobenzaprine 5 mg tablet 5 mg PO TID PRN (Reason: muscle spasm) 7 Days Qty: 21 0RF prednisone 20 mg tablet 20 mg PO DAILY 7 Days Qty: 7 0RF cyclobenzaprine 5 mg tablet 5 mg PO TID PRN (Reason: muscle spasm) Qty: 12 0RF naproxen 500 mg tablet 500 mg PO BID PRN (Reason: pain) Qty: 14 0RF Rx Instructions: Take with food prednisone 20 mg tablet 20 mg PO DAILY 5 Days Qty: 5 0RF lidocaine [Lidoderm] 5 % adhesive patch,medicated 1 patch topical DAILY MDD remove after 12 hours PRN (Reason: pain) Qty: 30 0RF Rx Instructions: leave on most painful area for up to 12 hrs naproxen 500 mg tablet 500 mg PO BID PRN (Reason: pain) 10 Days Qty: 20 0RF cyclobenzaprine 5 mg tablet 5 mg PO Q8H PRN (Reason: pain (scale score 7-10)) 5 Days Qty: 14 0RF morphine 15 mg tablet 15 mg PO Q6H PRN (Reason: pain) Qty: 10 0RF Rx Instructions: Partial Fill upon patient request. ibuprofen 600 mg tablet 600 mg PO Q6H PRN (Reason: fever or pain) Qty: 30 0RF Referrals: [facility]geons [Provider Group] - 3 days Print Language: [place]
[2024-10-29] MEDS: Ketorolac Tromethamine 30 MG/ML VIAL IM (11:35)
[2024-10-29] MEDS: oxyCODONE HCl Immed Release 5 MG TABLET PO (11:35)
[2024-10-29] MEDS: Acetaminophen 325 MG TABLET 975 MG PO (11:35)
[2024-10-29 11:47] LABS: MANUAL DIFF FLAG NO
[2024-10-29 11:49] LABS: Basophils Percent Auto 0.3 % (0-2); Eosinophils Absolute Auto 0.1 X10*3/uL (0.0-0.4); Hematocrit 41.2 % (42.0-52.0); Hemoglobin 14.3 g/dl (14.0-18.0); Imm Gran Abs Auto 0.03 X10*3/uL (0.00-0.03); Imm Gran Pct Auto 0.3 % (0.0-0.4); Lymphocytes Percent Auto 8.8 % (20-40); Mean Corpuscular HGB Conc 34.7 g/dl (31.0-36.0); Mean Corpuscular Hemoglobin 33.5 pg (27.0-33.0); Mean Corpuscular Volume 96.5 fL (80.0-98.0); Mean Platelet Volume 8.9 fL (9.4-12.4); Monocytes Absolute Auto 0.8 X10*3/uL (0.1-1.2); Neutrophils Absolute Auto 9.5 x10*3/uL (2.0-8.3); Neutrophils Percent Auto 82.6 % (45-73); Platelet Count 334 X10*3/uL (160-400); Red Blood Count 4.27 X10*6/uL (4.60-5.80); Red Cell Distribution Width 14.2 % (11.0-16.0); White Blood Count 11.5 X10*3/uL (4.8-10.8)
[2024-10-29 11:55] LABS: Prothrombin Time 11.6 SEC (10.9-12.4)
--- OUTSIDE RECORDS SUMMARY | 2024-10-29 11:56 | XMS_ITS | Data Portability ---
Author Organization [place] - [facility], Allergy Address [address] [place] [id number] Care Team Providers Care Director Labor Standards Name Role Phone MIRIAM SHAFFER Primary Care Provider Assessment Encounter Date Assessment [...] Organization Details Last Modified Time Details Appointments None record ed. Lab None record ed. Referral None record ed. Procedures None record ed. Surgeries None record ed. Imaging None record ed. Medication Orders None record ed. Patient TargetsNo targets recorded. Patient InstructionsNo instructions recorded. Reason for Referral None Reported. Problems Name Problem SNOMED Code Status Onset Date Resolution Date Notes Provider Name and Address Organization Details Recorded Time Obstructi ve sleep apnea syndrome 10112541 Active 2021 Obstructi ve sleep apnea (adult) (pediatri c); Note: Date Diagnosed : 01/11/2022 11:55 AM (G47.33) Not Available [facility] Deviated nasal septum 813434506 Active 2021 Deviated nasal septum; Note: Date Diagnosed : 01/11/2022 11:55 AM (J34.2) Not Available [facility] 4 02:14:21 Dysphonia 04390770 Active 2021 Hoarsenes s; Note: Date Diagnosed : 01/11/2022 11:55 AM (R49.0) Not Available [facility] 4 02:13:37 Sensorine ural hearing loss of bilateral ears 587322237 Active 2021 Sensorine ural hearing loss, bilateral ; Note: Date Diagnosed : 01/11/2022 11:27 AM (H90.3) Not Available [facility] 4 02:12:51 Bilateral tinnitus 03905808180 02 Active 2021 Tinnitus, bilateral ; Note: Date Diagnosed : 01/11/2022 11:27 AM (H93.13) Not Available [facility] 4 02:14:26 Chronic rhinitis 72659776 Active 2021 Chronic rhinitis; Note: Date Diagnosed : 2 11:42 AM (J31.0) Not Available [facility] 4 02:13:26 Rhinitis medicamen tosa 97481127 Active 2024 RADHA VOSS MD [address] [place] [address], [phone] , [facility] 5 09:42:37 Problem Notes None recorded. Procedures Surgical History Date Name Laterality Status Provider Name and Address Organization Details Recorded Time 06/28/19 25 otomicroscopy completed RADHA VOSS MD [address] [place] [address], [phone], [facility] 06/28/2024 09:42:01 06/28/19 25 Nasal Endoscopy completed RADHA VOSS MD [address] [place] [address], [phone], [facility] 06/28/2024 09:42:28 Imaging Results None recorded. Procedure [...] 800 mg tablet 2021 active Medication ID: [id number] Primitivo d Name: ibuprofen S end Method: E-Prescribe d Subs Allowed: subs OK Medicati onGenericNa me: ibuprofen Not Available Not Available Not Available clonazepam 1 mg tablet active Not Available Not Available No t Available aspirin 81 mg tablet,delay ed release active Not Available Not Available N ot Available tramadol 50 mg tablet 2021 active Medication ID: [id number] Primitivo d Name: tramadol Se nd Method: [...] capsule,hamzah yed release 2021 active Medication ID: [id number] Primitivo d Name: duloxetine Send Method: E-Prescribe [...] Updated DateTime 06/28/2024 170.18 cm 29.1 kg/m2 86428.18 g Phoenix White [place] - [facility] 06/28/2024 08:53:27 Social History None recorded. Functional Status None recorded. Mental Status None recorded. Family History Nothing Reported. Medical History No medical history recorded. Past Encounters Encounter ID Performer Location Encounter Start Date Encounter Closed Date Diagnosis/Indication Diagnosis SNOMED-CT Code Diagnosis ICD10 Code Diagnosis Note [id number] RADHA VOSS MD [facility] [address] [phone] 06/28/2024 08:40:44 06/28/2024 09:11:15 Rhinitis medicamentosa 36441091 J31.0 Bilateral tinnitus 53455 44793 102 H93.13 Health Concerns Section Related Observation LastModified by Organization Detai ls LastModified Time None Recorded Concern Status LastModified by Organization Details LastModified Time None Recorded Advance Directives Directive None Recorded Payers Insurance Date Sequence Insurance Name Policy Number Policy Whitfield Covered Member ID Whitfield Member ID Guarantor Name 06/28/2024 2 [place] [facility] Leandro Mcneil [id number] Leandro Mcneil 09/22/[address] [facility] - DOS ON OR AFTER 2022 - [employer] OPT[employer] AND ONE CARE (MEDICARE REPLACEMENT/AD VANTAGE - PPO) Leandro Mcneil [id number] Leandro Mcneil 06/28/[address] [facility] - DOS ON OR AFTER 2022 - MEDICARE [place]AGE [place] ([place]AC[place]/AD VANTAGE - PPO) Leandro Mcneil [id number] Leandro Mcneil Notes Date Note Type Note [...] otologic infections, otologic surgeries. RADHA VOSS MD [address] [place] [address], [phone], [facility] - [facility] 06/28/2024 09:45:03
[2024-10-29 11:58] LABS: Partial Thromboplastin Time 28.9 SEC (26.0-36.8)
[2024-10-29 12:02] LABS: Anion Gap 11 (12-20); Blood Urea Nitrogen 12 mg/dL (9-16); Carbon Dioxide 28 mmol/L (22-29); Chloride 104 mmol/L (96-108); Creatinine Clr Calc Pharmacy 78.6; Estimated Glomerular Filt Rate > 60; Glucose Random 156 mg/dL (60-115); Potassium 4.3 mmol/L (3.3-5.1); Sodium 139 mmol/L (135-145)
[2024-10-29 13:10] VITALS: BP 107/69; PULSE 76; RESP 14; TEMP 36.7; O2SAT 95
[2024-10-29 13:19] VITALS: BP 107/69; PULSE 76; RESP 14; TEMP 36.7; O2SAT 95
== END 2024-10-29 13:19 | disposition home or self-care (01) ==
PROVIDERS: Emergency Provider Emergency Medicine
DX: S76.912A Strain of unspecified muscles, fascia and tendons at thigh level, left thigh, initial encounter (principal); S70.12XA Contusion of left thigh, initial encounter; M17.12 Unilateral primary osteoarthritis, left knee; M79.605 Pain in left leg; X58.XXXA Exposure to other specified factors, initial encounter; Y93.9 Activity, unspecified; Y92.9 Unspecified place or not applicable; Y99.8 Other external cause status; Z79.899 Other long term (current) drug therapy
CPT/HCPCS: 36415; 73700; 80048; 85025; 85610; 85730; 96372; 99284; J1885

== ENCOUNTER → 2024-10-29 11:26 | Outpatient (BNV) | payer OTHER, SELFPAY | PROVIDERS: Emergency Provider Emergency Medicine; Visit Provider Radiology Diagnostic Radiology | DX: M65.252 Calcific tendinitis, left thigh (principal) | CPT/HCPCS: 73700 ==

== ENCOUNTER 2024-11-21 13:25 | Outpatient (AMB) | payer OTHER, SELFPAY ==
--- NOTE | 2024-11-21 13:26 | A.OFFVIS_ITS ---
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 He underwent lumbar disc surgery in 1990, which initially alleviated symptoms, but the pain has persisted over the years. A left hip replacement three years ago resolved hip pain but did not alleviate the back pain. The patient reports significant pain in the lower back and left leg, which has been persistent and severe. He experiences frequent falls due to the leg giving out, impacting his ability to engage in physical activities such as sports. Various pain management strategies have been tried, including physical therapy completed less than 1 year ago, and medications such as ibuprofen, Tylenol and lidocaine patches, with limited relief. He has not had a recent MRI of the back, though an x-ray was performed a few months ago. The patient consumes alcohol, a few beers, almost daily but does not smoke or use illicit substances. Denies red flag symptoms including new loss of bowel, bladder or saddle anesthesia. Denies burning, numbness, shooting pains down either lower extremity. - Onset: Chronic, persistent over years - Quality: Severe pain in lower back and left leg - Location: Lower back and left leg - Exacerbating factors: Physical activity, leg giving out - Relieving factors: Limited relief from ibuprofen and lidocaine patches - Affect: Pain impacts ability to engage in sports and physical activities - Analgesia: Uses ibuprofen and lidocaine patches with limited relief - Adverse Effects: None reported - Activities of Daily Living: Frequent falls due to leg giving out, impacting daily activities - Aberrant Drug Related Behaviors: None reported [facility] Medical History Hypertension Social History Alcohol intake: current Alcohol intake frequency: a few times a week Alcohol type: hard liquor Current occupational status: retired and disabled 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 Answers questions appropriately. Fully engaged in examination. Skin: warm, dry, intact HEENT: Normocephalic. Hearing intact. Cardiac: External chest normal in appearance. Respiratory: No cough, audible wheezing or stridor. Abdomen: without gross distension. MS: No obvious swelling or deformities. Able to stand on bilateral tiptoes and bilateral heels.? Able to transition from sit to stand unassisted. Ambulates with bilaterally normal heel strike and toe off Tenderness midline lumbar vertebrae and lumbar paraspinal muscles Valsalva negative SLR negative bilaterally Bilateral lower extremity strength 5/5 Nontender over bilateral PSIS Facet loading positive bilaterally Neurological: Oriented to person, place, time and situation. Thought process intact. No gait abnormalities appreciated. Psychiatric: Appropriate mood and affect. Good judgment and insight. Results Reviewed Results Reviewed: 08/31/2024 XR/XR lumbar spine 2-3V FINDINGS: AP, lateral, and coned down views of the lumbar spine are submitted. Osseous mineralization is normal. Five nonrib-bearing lumbar vertebral bodies are identified, maintaining normal height and alignment without evidence of fracture or spondylolisthesis. There is severe degenerative disc disease at the L5-S1 level with disc space narrowing and osteophyte formation. Milder changes are noted at the remaining levels. 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 The visualized paraspinal soft tissues are unremarkable. IMPRESSION: Degenerative changes of the lumbar spine as described. Assessment & Plan Assessment & Plan (1) Degenerative disc disease, lumbar: Code(s): M51.369 - Other intervertebral disc degeneration, lumbar region without mention of lumbar back pain or lower extremity pain Category: Medical (2) Post laminectomy syndrome: Code(s): M96.1 - Postlaminectomy syndrome, not elsewhere classified Category: Medical Plan An MRI of the back is planned to further evaluate the chronic lower back pain, as the patient has not had a recent MRI despite having an x-ray a few months ago. The patient will be scheduled for an open MRI to accommodate his discomfort with enclosed spaces, and a sedative may be prescribed to ease anxiety during the procedure. Follow-up will occur a week after the MRI to discuss the results and adjust the management plan accordingly. Patient is requesting this be performed at [facility] as they have open MRI. He will call the office one-week before his appointment so that 1 mg of Ativan can be sent for him to take 30 minutes prior to his arrival for his MRI. He has exhausted conservative therapy including PT, home exercise program, NSAIDs, sgww-bej-nldomut medications, topical medications, oral steroids all without improvement of his symptoms. Patient was informed and verbally consented to the use of an ambient scribe for clinic note documentation during this visit. Orders: Orders MR lumbar spine wo con Today M51.369 - Other intervertebral disc degeneration, lumbar region without mention of lumbar back pain or lower extremity pain, M54.9 - Dorsalgia, unspecified, M96.1 - Postlaminectomy syndrome, not elsewhere classified Patient Instructions: - Schedule an open MRI as discussed. - Take the prescribed sedative before the MRI to help with anxiety. - Follow up with the doctor a week after the MRI to discuss results. Coding Level of Care Code New Pt Level 4 (25389) Complex EM visit Add On G2211 Diagnoses Degenerative disc disease, lumbar M51.369 Post laminectomy syndrome M96.1
[2024-11-21 13:27] VITALS: BP 139/79; PULSE 88; RESP 16; O2SAT 95; BMI 29.0
--- OUTSIDE RECORDS SUMMARY | 2024-11-21 14:01 | XMS_ITS | Clinical Summary ---
Author Organization [facility] Address [address] [place] [address] Care Team Providers Care Ear Mold Laboratory Technician Name Role Phone Unavailable Primary Care Provider [...] mcg/actuation nasal sprayIndication s:Environmental allergies Place 1 [place] in both nostrils once daily 16 mL [...] 92 09/01/2016 10:18 AM EDT Temperature 36.8 C (98.2 F) 09/01/2016 10:18 AM EDT Respiratory Rate 23 09/01/2016 10:18 AM EDT Oxygen Saturation - - Inhaled Oxygen Concentration - - Weight 94.3 kg (208 lb) 09/01/2016 10:18 AM EDT Height 168.5 cm (5' 6.34 ) 09/01/2016 10:18 AM E DT Body Mass Index 33.23 09/01/2016 10:18 AM EDT Plan of Treatment Not on file Insurance [facility] Member Subscriber Plan / Payer ( fective 2015-Present) Name:Leandro Mcneil Relation to Subscriber:Self Name:Leandro Mcneil Payer ID:[id number] Group ID:[id number] Type:Medicaid Address: [facility] [address] [place] [address] [facility]
--- OUTSIDE RECORDS SUMMARY | 2024-11-21 14:01 | XMS_ITS | Data Portability ---
Author Organization [place] - [facility], Allergy Address [address] [address] Care Team Providers Care Microfilmer Name Role Phone TANVINAPOLEONELBAMIRIAM Primary Care Provider Assessment Encounter Date Assessment [...] Recorded Time Obstructi ve sleep apnea syndrome 95689945 Active 2021 Obstructi ve sleep apnea (adult) (pediatri c); Note: Date Diagnosed : 01/11/2022 11:55 AM (G47.33) Not Available [facility] 02:12:48 Deviated nasal septum 516304666 Active 2021 Deviated nasal septum; Note: Date Diagnosed : 01/11/2022 11:55 AM (J34.2) Not Available [facility] 4 02:14:21 Dysphonia 09140847 Active 2021 Hoarsenes s; Note: Date Diagnosed : 01/11/2022 11:55 AM (R49.0) Not Available [facility] 4 02:13:37 Sensorine ural hearing loss of bilateral ears 168958748 Active 2021 Sensorine ural hearing loss, bilateral ; Note: Date Diagnosed : 01/11/2022 11:27 AM (H90.3) Not Available [facility] 4 02:12:51 Bilateral tinnitus 39930756787 02 Active 2021 Tinnitus, bilateral ; Note: Date Diagnosed : 01/11/2022 11:27 AM (H93.13) Not Available [facility] 4 02:14:26 Chronic rhinitis 30257116 Active 2021 Chronic rhinitis; Note: Date Diagnosed : 2 11:42 AM (J31.0) Not Available [facility] 4 02:13:26 Rhinitis medicamen tosa 47217614 Active 2024 RADHA VOSS MD [address] [place] [address], [phone] , [facility] 5 09:42:37 Problem Notes None recorded. Procedures Surgical History Date Name Laterality Status Provider Name and Address Organization Details Recorded Time 06/28/19 25 otomicroscopy completed RADHA VOSS MD [address] [place] [address], [phone], [facility] 06/28/2024 09:42:01 06/28/19 25 Nasal Endoscopy completed RADHA VOSS MD [address] [place] [address], [phone], [facility] 06/28/2024 09:42:28 Imaging Results None recorded. [...] 800 mg tablet 2021 active Medication ID: [id number] Primitivo d Name: ibuprofen S end Method: E-Prescribe d Subs Allowed: subs OK Medicati onGenericNa me: ibuprofen Not Available Not Available Not Available clonazepam 1 mg tablet active Not Available Not Available No t Available aspirin 81 mg tablet,delay ed release active Not Available Not Available N ot Available tramadol 50 mg tablet 2021 active Medication ID: [id number] Primitivo d Name: tramadol Se nd Method: [...] capsule,hamzah yed release 2021 active Medication ID: [id number] Primitivo d Name: duloxetine Send Method: E-Prescribe [...] Updated DateTime 06/28/2024 170.18 cm 29.1 kg/m2 57529.18 g Phoenix White [place] - [facility] 06/28/2024 08:53:27 Social History None recorded. Functional Status None recorded. Mental Status None recorded. Family History Nothing Reported. Medical History No medical history recorded. Past Encounters Encounter ID Performer Location Encounter Start Date Encounter Closed Date Diagnosis/Indication Diagnosis SNOMED-CT Code Diagnosis ICD10 Code Diagnosis Note [id number] RADHA VOSS MD [facility] [address] [address] 06/28/2024 08:40:44 06/28/2024 09:11:15 Rhinitis medicamentosa 73972861 J31.0 Bilateral tinnitus 73917 75976 102 H93.13 Health Concerns Section Related Observation LastModified by Organization Detai ls LastModified Time None Recorded Concern Status LastModified by Organization Details LastModified Time None Recorded Advance Directives Directive None Recorded Payers Insurance Date Sequence Insurance Name Policy Number Policy [place] Covered Member ID [place] Member ID Guarantor Name 06/28/2024 2 [place] [facility] Leandro Mcneil [id number] Leandro Mcneil 09/22/2024 1 [facility] - DOS ON OR AFTER 2022 - [employer]IT[employer]IARY OPTIONS AND ONE CARE (MEDICARE REPLACEMENT/AD VANTAGE - PPO) Leandro Mcneil [id number] Leandro Mcneil 06/28/2024 1 [facility] - DOS ON OR AFTER 2022 - MEDICARE [place]VANTAGE [place] (MEDICARE REPLACEMENT/AD VANTAGE - PPO) Leandro Mcneil [id number] Leandro Mcneil Notes Date Note Type Note [...] otologic infections, otologic surgeries. RADHA VOSS MD [address] [place] [address], [phone], [facility] - [facility] 06/28/2024 09:45:03
--- OUTSIDE RECORDS SUMMARY | 2024-11-21 14:01 | XMS_ITS | Clinical Summary ---
Author Organization [employer] Address [address] [facility] [address] [place] [address] Care Team Providers Care Optometric Assistant Name Role Phone Unavailable Primary Care Provider [...] care. Obstructive sleep apnea 06/01/2018 Overview (08/30/2023): [facility] Home Polysomnogram: Date 05/29/2018; AHI 20, [...] pain 08/23/2017 Insomnia 08/23/2017 Overview (08/30/2023): F/u [place] Social History Tobacco Use Types Packs/Day Years [...] 08/19/2020, 07/29/2020 Influenza Vaccine (Season Ended) 2025 Tobacco Screening 08/21/2025 08/21/2024 DTaP/Tdap/Td Vaccines (3 [...] this topic Meningococcal Vaccine Aged Out No olw caleb eligible based on patient's age to complete this topic RSV under 20 months Aged Out No longe r eligible based on patient's age to complete this topic Rotavirus Vaccines Aged Out No longer eligible based on patient's age to complete this topic Insurance [facility]
--- OUTSIDE RECORDS SUMMARY | 2024-11-21 14:01 | XMS_ITS | Encounter Summary ---
Author Organization [facility] Address [address] [place] [address] Care Team Providers Care Gathering Worker Name Role Phone Jolanta Maharaj MD Primary Care Provider Un available Silvia Teran DO Primary Care Pro vider Unavailable Tre Frey MD Unavailable [phone] Qamar Mack MD Primary Care Provider [phone] Timothy Estrada Primary Care Provider Unavailab Jorge Luis Flores Primary Care Provider [phone] Neelam Rader NP Unavailable [phone] Encounter Details Date Type Department Care Team Description 04/25/2018 [facility] Medical Records [address] [place] [address] Abstract, Provider Social History Tobacco Use Types Packs/Day Years Used Date Smoking Tobacco: Never Smokeless Tobacco: Never Alcohol Use Standard Drinks/Week Comments Yes 0 (1 standard drink = 0.6 oz pur e alcohol) weekly beers Alcohol Habits Answer Date Recorded How often do you have a drink containing alcohol ? Monthly or less 07/14/2020 How many drinks containing a lcohol do you have on a typical day when you are drinking? Not asked How often do you have six or more drinks on one occasion? Not asked Sex Assigned at Date Recorded Not on file Job Start Date Occupation Industry Not on file Not on file Not on file documented as of this encounter Plan of Treatment Not on file documented as of this encounter Visit Diagnoses Not on filedocumented in this encounter Care Teams Gathering Worker Relationship Specialty Start Date End Date Jolanta Maharaj MD PCP - General Internal Medicine 05/19/1703/06 Silvia Teran DO PCP - General Internal Medicine 03/07/19 10/28/20 Qamar Mack MD [address] [place] [id number] PCP - General Internal Medicine 10/29/20 07/20/21 Timothy Estrada [address] [place] [id number] PCP - General Internal Medicine 07/21/21 12/06/21 Jorge Luis Falk [address] [place] [address] PCP - General Internal Medicine 12/07/21 Tre Frey MD [address] [place] [address] Specialist Cardiovascular Disease 07/14/20 Neelam Rader NP [address] [place] [address] Cardiology 08/22/23 documented as of this encounter
--- OUTSIDE RECORDS SUMMARY | 2024-11-21 14:01 | XMS_ITS | Clinical Summary ---
Author Organization [facility] Address [address] [place] [address] Phone Care Team Providers Care Nursing Specialist Name Role Phone Jorge Luis Falk MD Primary Care Provider Allergies No known active allergies Medications aspirin 81 mg EC tablet Take 1 Tablet by mouth daily. 03/02/20 24 Active clonazePAM (KlonoPIN) 1 mg tablet Take 1.5 mg by mouth 2 times daily. Active sacubitriL-va lsartan (Entresto) 24-26 mg per tablet TAKE 1 TABLET BY MOUTH TWICE DAILY 180 tablet 1 05/28/19 25 Active DULoxetine (CYMBALTA) [address] capsule TAKE 1 CAPSULE BY MOUTH DAILY 90 capsule 06/08/19 25 Active acetaminophen (TYLENOL 8 HOUR) 650 [...] wheezing. 6.7 g 3 07/03/19 25 Active cholecalcifer ol (VITAMIN D-3) 50 mcg (2,000 unit) tablet Take 1 tablet (2,000 Units total) by mouth 1 (one) time each day. 90 tablet 3 07/03/19 25 Active atorvastatin (LIPITOR) 20 mg tablet Take 1 tablet (20 mg total) by mouth 1 (one) time each day. 90 tablet 1 07/03/19 25 Active budesonide-fo rmoteroL (Symbicort) 80-4.5 mcg/actuation inhaler Inhale 2 puffs by mouth 2 (two) times a day. Rinse mouth with water after use to reduce aftertaste and incidence of candidiasis. Do not swallow. 1 each 4 07/03/19 25 Active carvediloL (COREG) 6.25 mg tablet TAKE 1/2 TABLET BY MOUTH TWICE DAILY WITH MEALS 90 tablet 1 08/17/19 25 Active cyclobenzapri ne (FLEXERIL) 5 mg tabletIndicat ions:Chronic left-sided low back pain with left-sided sciatica Take 1 tablet (5 mg total) by mouth 2 (two) times a day if needed for muscle spasms. 45 tablet 3 10/17/19 25 Active oxyCODONE (ROXICODONE) 5 mg immediate release tabletIndicat ions:Chronic left-sided low back pain with left-sided sciatica Take 1 tablet (5 mg total) by mouth 1 (one) time each day if needed for severe pain. Max Daily Amount: 5 mg 10 tablet 10/18/19 25 Active gabapentin (NEURONTIN) 100 mg capsule TAKE 1 CAPSULE(100 MG) BY MOUTH THREE TIMES DAILY 90 capsule 4 11/13/19 25 Active gabapentin (NEURONTIN) 100 mg capsule Take 1 capsule (100 mg total) by mouth 3 (three) times a day. 90 each 3 07/03/19 25 2024 Discontinued predniSONE (DELTASONE) 20 mg tablet Take 3 tablets (60 mg total) by mouth See administration instructions for 2 days, THEN 2 tablets (40 mg total) See administration instructions for 2 days, THEN 1 tablet (20 mg total) See administration instructions for 2 days. 12 tablet 10/17/19 25 2024 Active Problems Problem Noted Date Diagnosed Date Asthma-COPD overlap syndrome (CMS/HCC V24, CMS/H CC V28) 04/12/2024 Chronic HFrEF (heart failure with reduced ejection fraction) (CMS/HCC V24, CMS/HCC V28) 11/30/2023 Mixed hyperlipidemia 11/30/2023 HFrEF (heart failure with re duced ejection fraction) (CMS/HCC V24, CMS/[facility] V28) 08/22/2023 Overview (04/12/2024): Last Assessment & [...] with acute exacerbati on 10/24/2019 Overlap syndrome ([facility] V24) 10/24/2019 PND (post-nasal drip) 10/24/2019 Dyslipidemia [...] 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 ([facility] V24, [facility] V28) 10/14/2017 Allergic rhinitis 08/23/2017 Anxiety and depression 08/23/2017 Carpal tunnel syndrome, bilateral 08/23/2017 Chronic back pain 08/23/2017 Insomnia 08/23/2017 Overview (04/12/2024): F/u [place] Encounters Date Type Department Care Team Description 10/16/2024 2:45 PM EDT Office Visit Adult Medicine [address] [phone] Jorge Luis Falk MD Chronic left-sided low back pain with left-sided sciatica (Primary Dx) 10/10/2024 Telephone Adult [address] [phone] Jorge Luis Falk MD Back Pain (Back pain walk in triage) 08/23/2024 Telephone Adult [address] [phone] Jorge Luis Falk MD Fitting for DME from Last 3 Months Immunizations Name Administration Dates Next Due Pfizer SARS-CoV-2 COVID-19, mRNA, LNP-S, preservative free 08/19/2020 Pneumococcal polysaccharide 23 valent (Pneumovax 23) 2yo and older 11/22/2022 Tdap Tetanus diptheria acell ular pertussis (Boostrix; Adacel) 7yo and older 12/09/2017 Surgical History Surgery Date Site/Laterality Comments BACK SURGERY 1990 PROCEDURE: HISTORICAL BACK SURGERY; COMMENT: Pep HERNIA REPAIR PROCEDURE: HISTORICAL HERNIA REPAIR/UMB BREAST [...] pain Insomnia 08/23/2017 DX:Insomnia; COM MENT: F/u [place] Anxiety 08/23/2017 DX:Anxiety Allergic rhinitis 08/23/2017 DX:Allergic [...] (heart failure with re duced ejection fraction) ([facility] V24, [facility] V28) 08/22/2023 DX:HFrEF (heart failure with reduced ejection fraction) ([facility]) Family History Medical History Relation Name Comments [...] Sign Reading Time Taken Comments Blood Pressure 138/80 10/16/2024 2:30 PM EDT Pulse 78 10/16/2024 2:30 PM EDT Temperature 36.6 C (97.9 F) 10/16/2024 2:30 PM EDT Respiratory Rate 14 10/16/2024 2:30 PM EDT Oxygen Saturation 98% 10/16/2024 2:30 PM EDT Inhaled Oxygen Concentration - - Weight 80.7 kg (178 lb) 10/16/2024 2:30 PM EDT Height 170.2 cm (5' 7 ) 10/16/2024 2:30 PM EDT Body Mass Index 27.88 10/16/2024 2:30 PM EDT Plan of Treatment Upcoming Encounters Date Type Department Care Team (Late st Contact Info) Description 01/16/2025 8:00 AM EDT Office Visit Adult Medicine [address] [address] Jorge Luis Falk MD [address] [place] [id number] Health Maintenance Due Date Last Done Comments [...] 03/02/2025 03/02/2024 Falls Risk Assessment 03/02/2025 03/02/2024 Medicare Annual Wellness Visit 03/02/2025 03/02/2024 Cholesterol Screening (Lipid Panel) 12/15/2028 [...] Procedure Name Priority Date/Time Associated Diagnosis Comments EXTERNAL XRAY REPORT 08/31/2024 EXTERNAL XRAY REPORT 08/31/2024 EXTERNAL XRAY REPORT 08/31/2024 EXTERNAL XRAY REPORT 08/31/2024 DEPRESSION SCREENING Routine 03/02/2024 FALLS RISK ASSESSMENT Routine 03/02/2024 ANNUAL BMP BLOOD TEST Routine 02/20/2024 LIPID PANEL Routine 12/16/2023 HEPATITIS C SCREENING Routine 12/19/2017 from Last 3 Months or Most Recently Relevant to Health Maintenance Results * External Xray Report (08/31/2024) Only the most recent of4 resultswithin the time period is included. Anatomical Region Laterality Modality Radiographic Nicole ging Provider Adarsh Onbase IMG XR PROCEDURES Final Result * Falls Risk Assessment (03/02/2024) Pathologist [facility] Falls Risk Assessment Abstracted [facility] Provider HEALTH MAINTENANCE Final Result * Depression Screening (03/02/2024) Pathologist [facility] Depression Screening Abstracted [facility] Provider HEALTH MAINTENANCE Final Result * Annual BMP Blood Test (02/20/2024) Pathologist [facility] Annual BMP Blood Test Abstracted [facility] Provider HEALTH MAINTENANCE Final Result * Lipid panel (12/16/2023) [facility] LDL/HDL Ratio 3 0 - 4 Triglycerides 84 0 - 150 mg/dL Cholesterol 189 0 - 200 mg/dL HDL 73 >=40 mg/dL LDL Cholesterol 100 0 - 100 mg/dL Blood Venous blood specimen / Unknown Result [facility] Provider LAB BLOOD ORDERABLES Wilma l Result * Hepatitis C Screening (12/19/2017) Pathologist [facility] Hepatitis C Screening Abstracted [facility] Veronica MAX HEALTH MAINTENANCE Final Result from Last 3 Months or Most Recently Relevant to Health Maintenance Insurance [facility] [employer] Member Subscriber Plan / Payer (Ef fective 2024-Present) Name:Leandro Mcneil Relation to Subscriber:Self Name:Leandro Mcneil Payer ID:[id number] Group ID:Not on file Type:Not on file Address: [place] [address] [address] [phone] Care Teams Nursing Specialist Relationship Specialty Start Date End Date Jorge Luis Falk MD [address] [place] [address] PCP - General Internal Medicine 12/07/21
== END 2024-11-21 14:09 | disposition home or self-care (01) ==
LOC: HO.PMC 13:25
PROVIDERS: PCP Internal Medicine; Referring Provider Internal Medicine; Visit Provider Registered Nurse Emergency
DX: M51.369 Other intervertebral disc degeneration, lumbar region without mention of lumbar back pain or lower extremity pain (principal); M96.1 Postlaminectomy syndrome, not elsewhere classified
CPT/HCPCS: 99204; G2211

== ENCOUNTER → 2024-11-21 13:25 | Outpatient (BNVA) | payer OTHER, SELFPAY | PROVIDERS: PCP Internal Medicine; Referring Provider Internal Medicine; Visit Provider Registered Nurse Emergency | DX: M51.369 Other intervertebral disc degeneration, lumbar region without mention of lumbar back pain or lower extremity pain (principal); M96.1 Postlaminectomy syndrome, not elsewhere classified | CPT/HCPCS: 99202 ==

== ENCOUNTER 2025-05-10 09:45 | Outpatient (AMB) | payer OTHER, SELFPAY ==
--- NOTE | 2025-05-10 09:46 | A.OFFVIS_ITS ---
Vital Signs 05/10/25 09:47 Height 5 ft 7 in Weight 190 lb BMI 29.8 BP 132/84 Blood Pressure Location Lt brachial Position Sitting Respiration 16 Pulse 86 Pulse Source Pulse Oximeter Pulse Oximetry (%) 96 Oxygen Delivery Method Room Air Intake Visit Reasons: Back pain Visitor Services Specialist Required: Yes Visitor Services Specialist Language: Domestic Violence Advocate Name: Beth Avery [phone] Accompanied by: Self / Same As Patient Allergies No Known Allergies Allergy (Verified 05/10/25 09:46) HPI Comments Details: History of Present Illness The patient is a 69 year old male presenting for follow-up of back pain and to discuss an incomplete MRI. He attempted to have a spinal MRI over the summer but was unable to complete the exam due to claustrophobia and anxiety, lasting less than five minutes in the machine despite the use of headphones. He did not receive any anxiolytic medication before that attempt. The few images obtained from the partial scan showed significant narrowing of the spinal canal. The patient reports having back pain, which occurs on both sides but is worse on the right. He experiences associated weakness in his legs, and reports his legs giving out, causing him to feel as if he is about to fall. The pain is severe e nough to keep him up at night, and he now uses a cane to walk. He uses unspecified patches for pain management. His medical history is notable for a past surgery on his hips/waist. He reports receiving injections at home from a nursing service, but notes the pain relief lasted only about two weeks. He also takes clonazepam for anxiety. Pain Description - Onset and Timing: The pain is present almost all night. - Quality and Character: The patient describes the pain as unbelievable. - Location: The pain is located in the lower back. - Radiation: The pain does not radiate down the legs. - Associated Symptoms: He reports weakness in his legs and his legs giving out, leading to feeling like he is about to fall. - Interference with Activities: The pain interferes with sleep, and he requires a cane to walk. Pain Management - Affect: The patient complains of pain all night. - Analgesia: He is using unspecified patches for pain relief. - Activities of Daily Living: The patient's pain has impacted his mobility, requiring him to use a cane to walk, and it also disturbs his sleep. 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 - Neurological: Reports leg weakness and a sensation of his legs giving out. - Psychiatric: Reports feeling anxious and desperate during his previous MRI experience. Physical Exam Exam Exam: Physical Exam General: awake, alert, oriented. Answers questions appropriately. Fully engaged in examination. Skin: warm, dry, intact HEENT: Normocephalic. Hearing intact. Cardiac: External chest normal in appearance. Respiratory: No cough, audible wheezing or stridor. Abdomen: without gross distension. MS: Able to transition from sit to stand unassisted. Ambulates with bilaterally normal heel strike and toe off Tenderness midline lumbar vertebrae and lumbar paraspinal muscles, Right > Left SLR negative bilaterally Bilateral lower extremity strength 5/5 Nontender over bilateral PSIS Neurological: Oriented to person, place, time and situation. Thought process int act. No gait abnormalities appreciated. Psychiatric: Appropriate mood and affect. Good judgment and insight. Vital Signs: Last Vital Signs Pulse 86 05/10/25 09:47 Resp 16 05/10/25 09:47 BP 132/84 05/10/25 09:47 Pulse Ox 96 05/10/25 09:47 Oxygen Delivery Method Room Air 05/10/25 09:47 BMI result Body Mass Index 29.8 Assessment & Plan Assessment & Plan (1) Spinal stenosis: Code(s): M48.00 - Spinal stenosis, site unspecified Category: Medical (2) Intractable back pain: Code(s): M54.9 - Dorsalgia, unspecified Category: Medical (3) Post laminectomy syndrome: Code(s): M96.1 - Postlaminectomy syndrome, not elsewhere classified Category: Medical (4) Degenerative disc disease, lumbar: Code(s): M51.369 - Other intervertebral disc degeneration, lumbar region without mention of lumbar back pain or lower extremity pain Category: Medical Plan Plan An MRI will be reordered to fully evaluate the extent of the patient's spinal narrowing, which was noted on a previous incomplete study. The order will be directed to an open MRI facility in [place] to accommodate his claustrop hobia. To manage his anxiety during the procedure, a prescription for Valium will be sent to [facility], with instructions to take one tablet 30 minutes before the appointment. Obtaining a complete MRI is necessary to determine the next steps in management, which may include injections or a surgical consultation. The patient is advised to schedule a follow-up appointment approximately one week after the MRI is completed to review the results. The imaging facility will contact the patient directly to schedule the MRI once insurance authorization is obtained. Patient was informed and verbally consented to the use of an ambient scribe for clinic note documentation during this visit. Discussion Notes I discussed with the patient that the few images from his recent MRI attempt indicate significant narrowing in his spinal canal, which is the likely cause of his back pain and leg weakness. I emphasized the importance of completing a full MRI to properly assess his condition and decide whether to proceed with injections or a referral to a surgeon. Given his previous difficulty with the scan due to anxiety, I explained that I would prescribe Valium for him to take 30 minutes before the test to help him relax. I also informed him that I will send the order to an open MRI facility to hopefully make the experience more tolerable. I instructed the patient to call and schedule a follow-up visit with me about a week after his MRI to review the results. Patient Instructions - I am ordering a new MRI for your back at the open MRI facility in [place]. - The imaging center will call you to schedule the appointment. - I have sent a prescription for Valium to [facility]. - Please take one tablet of Valium 30 minutes before your MRI appointment to help you relax. - After the MRI is done, please call our office to make a follow-up appointment to review the results, about one week after the scan. Medications: New diazepam (Valium) please take 30minutes prior to arrival for MRI 5 mg PO ONCE PRN 1 tab 0RF sleep Coding Level of Care Code Est Pt Level 3 (09624) Add On Problem Visit Only Diagnoses Spinal stenosis M48.00 Intractable back pain M54.9 Post laminectomy syndrome M96.1 Degenerative disc disease, lumbar M51.369
[2025-05-10 09:47] VITALS: BP 132/84; PULSE 86; RESP 16; O2SAT 96; BMI 29.8
--- OUTSIDE RECORDS SUMMARY | 2025-05-10 10:37 | XMS_ITS | Encounter Summary ---
Author Organization [employer] Address [address] [place] [address] Care Team Providers Care Mexican Food Maker Name Role Phone Unavailable Primary Care Provider Unavailabl e Encounter Details Date Type Department Care Team (Latest Contact Info) Description 08/07/2018 Abstract [facility] CONVERSIONS Dental, Provider, DDS Social History [...]
--- OUTSIDE RECORDS SUMMARY | 2025-05-10 10:37 | XMS_ITS | Continuity of Care Document ---
Author Name [facility], Medical Address [address] [place] [id number] Organization Unknown Address [address] [place] [id number] Medications No known medications Problems No known problems
--- OUTSIDE RECORDS SUMMARY | 2025-05-10 10:37 | XMS_ITS | Encounter Summary ---
Author Organization [facility] Address [address] [place] [address] Encounters * CPT with Medical [facility] at [employer] on 2025-02-10 { reasonForRequest : Patient has back pain, and feels light headed. , patie ntReports : Weakness with fall, able to move all extremities , denies :[&qu ot;Falls with head strike and LOC , Falls from a standing position, no LOC, patient is amnestic to the event , Falls with isolated injury and deformity noted to limb , Falls with inability to move post fall , Cool extremities after fall or injury ], chiefComplaints : Back Pain, Dizziness , pmh : Chronic Pain, Anxiety Disorder, Congestive Heart Failure, Depression, Obesity , allergies : No Known Drug Allergies , otherAllergies : , painAssessment : ,& quot;visitOutcome : , additionalComments : 69 y.o male complains of Back Pain, Dizziness\n\nWife reporting symptoms:\nBack pain and dizziness since last night \nReporting fall 3-4 days ago while walking - landed on his side - denies head strike - cut on his finger wasonly injury \nReports pain on L side - unsure if related to the fall or not - no obvious injury to area \nReports frequent falls - unrelated to dizziness - denies obvious changes in his gait \nReports mental status is baseline - not confused - denies vision changes\nDizziness just starting last night - denies changes in medications - denies chest pain, shortness of breath \nChronic back pain - issue with one of his discs \nNot on anticoagulation, denies kidney issues\nRequesting [facility] visit \n\nI provided information on the mobile health provider response time and advised the patient and/or caregiver to monitor reported signs and symptoms. I discussed the warning signs of when to seek emergency care. } Pt is a 69y.o. male requesting a visit for a post fall 3-4days ago. Pt is complaining of lower backpain and Right rib pain just under the right armpit. Pt thinks he might have landed on his Right side. Pt stated he hasn't taken any meds for the pain. Pt's stated she put on a lidocaine path with no relief. Pt stated his low back pain is a 9/10 and his Right rib pain is a 6/10. Pt denies any LOC. PT stated he remembers the whole event and was not dizzy or lightheaded when he fell. Pt deniesbeing on any blood thinners. Pt's VS were taken and noted. Pt's lung sounds are clear in all lobes.There is no edema noted in the lower extremities. There is no deformity, crepitus or contusions noted. Pt has tenderness on palpation on his lower back and Right ribs. Spoke to Dr. Mae in regard to the Pt. Dr. Mae requested Pt be given Toradol 15mg IM and Acetaminophen 500mg x2 PO and to follow up with his PCP on Tuesday to have X-Rays done. 5 rights were gone over. Pt was given Acetaminophen 500mg x2 PO without any issues. Pt was given Toradol 15mg IM in the Left Deltoid without any issues. Red Flag warnings were gone over. IV_(FLUIDS_AND/OR_MEDICATION), MEDICATION_IM, ORAL_MEDICATION, EKG, POC_BLOODWORK, ORTHOSTATIC_VITAL_SIGNS, PO_MEDICATION Written by Medical [facility] on 2025-02-10
--- OUTSIDE RECORDS SUMMARY | 2025-05-10 10:37 | XMS_ITS | Encounter Summary ---
Author Organization [employer] Address [address] [place] [address] Care Team Providers Care Veneer Puller Name Role Phone Unavailable Primary Care Provider Unavailabl e Reason for Visit * Reason Onset Date Comments Dr. Carlita collins partial 12/31/2024 Encounter Details Date Type Department Care Team ([facility] st Contact Info) Description 12/31/2024 Telephone [facility] [address] [place], [place] [phone] Emmanuel Zazueta, DMD [address] [place], [place] [phone] Dr. Zazueta broken partial Social History Tobacco Use Types Packs/Day Years [...] encounter Miscellaneous Notes * Telephone Encounter - Bita Sosa - 12/31/2024 9:15 AM EDT Message for Dr Zazueta Patient is looking to come in sooner than 904 date for the broken partial. He is upset stating that he has had to come in at least 6 times to get a repair and finally was able to get a metal partialand it broke again He does not want to wait until 01/25 however it was the only date with current availability. Patient would like a call to come in sooner pending provider approval DR Sent to both provider clinical support and director of front office documented in this encounter Plan of Treatment Not on file documented as of this encounter Visit Diagnoses Not on filedocumented in this encounter
--- OUTSIDE RECORDS SUMMARY | 2025-05-10 10:37 | XMS_ITS | Encounter Summary ---
Author Organization [facility] Address [address] [place] [address] Encounters * CPT with Jovi Rodriguez at [facility] on [id number]'s call transferred from [facility], member c/o severe back pain, that is radiating down his left thigh. Member states he is having difficulty walking. Member states he has taken oxycodone and Motrin,last night. Member has a hx of sciatica. Member is requesting home visit for evaluation and pain management. PMH includes, but not limited to CHF, obesity, chronic pain, radiculopathy lumbar region, MDD, BRADY. { reasonForRequest : Pain , patientReports : , denies& quot;:[], chiefComplaints : Back Pain , pmh : Chronic Pain, Anxiety Disorder, Congestive Heart Failure, Depression, Obesity , allergies : No Known Drug Allergies , otherAllergies : , painAssessment : &quo t;, visitOutcome : , additionalComments : HPI reviewed } Dispatched to the call address for the male with acute on chronic back pain. Pt advises he was fishing a week ago and was pulling hard an the line snapped causing him to jerky suddenly and flair up his sciatic pain. He describes the pain as a burning type that goes down into his upper left thigh. He denies any chest pain, fevers, diff breathing/SoB, cough or other symptoms at this time. Pt has not taken NSAIDs since yesterday. Pt denies any Hx of CKD, ulcers or being anticoagulated. Pt was found opening door, CAOx4, airway open and patent, breathing non labored, able to speak in full sentences, -JVD, -HEENT, skin PWD with good turgor, mucous membranes pink and moist, lungs CTA, pupils PERRL, +CMSx4, afebrile, abd soft/non tender/distended, -edema/swelling or bruisingacute on chronic back pain.Pt was assessed with full set of vitals. [facility] consulted. Pt given 15mg Ketorolac ( L deltoid) after confirming med rights. Pt advised to not take NSAIDs for the rest of the day and to follow up with PCP. Red flags discussed. ALL times are approx. IV_(FLUIDS_AND/OR_MEDICATION), MEDICATION_IM, ORAL_MEDICATION, EKG Written by Jovi Rodriguez on 2024-10-25
--- OUTSIDE RECORDS SUMMARY | 2025-05-10 10:37 | XMS_ITS | Encounter Summary ---
Author Organization [employer] Address [address] [place] [address] Care Team Providers Care Podiatric Medicine Doctor Name Role Phone Unavailable Primary Care Provider Unavailabl e Reason for Visit * Reason Onset Date Comments case back from lab??/appt 02/15/2024 Encounter Details Date Type Department Care Team (Late st Contact Info) Description 02/15/2024 Telephone [facility] [address] [place] [address] Emmanuel Zazueta DMD [address] [place] [address] case back from lab??/appt Social History Tobacco [...] The case is here. I talked to frontend engineer to schedule the appointment for patient * [...]
--- OUTSIDE RECORDS SUMMARY | 2025-05-10 10:37 | XMS_ITS | Encounter Summary ---
Author Organization [facility] Address [address] [place] [address] Encounters * CPT with Medical [facility] at [employer] on 2025-04-21 { reasonForRequest : back pain , patientReports : , denies :[ Temple Flash, circumferential temple , Temple reported with black tissue to the area , Open skin area after a fall with uncontrolled bleeding , Abscess /infection with streaking noted, presence of fever or without ], chiefComplaints :"Back Pain , pmh : Chronic Pain, Anxiety Disorder, Congestive Heart Failure, Depression, Obesity , allergies : No Known Drug Allergies , otherAllergies : , painAssessment : , visitOutcome : , additionalComments : 69 y.o male complains of Back Pain\nPatient and patient's are English speaking primarily, 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 Patient's calling reporting patient has back pain and is unable to get out of bed. reports patient has chronic back pain but \ it is so bad he cannot walk\ . also reporting patient unable to sleep last night due to the pain. Patient with no reported numbness or tingling. Patient with no reported new loss of bl adder or bowel control. denies patient having any new injury to his back. When asked about what patient has tried for pain states \ everything\ . Patient with no reported fever orchills. I provided information on the mobile health provider response time and advised the patient and/or caregiver to monitor reported signs and symptoms. I discussed the warning signs of when to seek emergency care -Marleny Rothman RN } Patient chief complaint today of lower back pain. Patient states that this is a chronic condition in which he has been treated for multiple times. Patient does Express that approximately 4 [facility] arrival on scene today patient was walking down the stairs where he tripped and fell on the stairs. Patient does express he had no loss of consciousness as well as head strike. Patient however, does state today that the pain has been increasing each day to the point to where he's not been able to sleep restfully at night. Patient is able to ambulate with assistance of a person. Patient expresses that pain is 8 out of 10 level while at rest with an increase during movement. Patient today would appreciate general assessment as well as possible treatment for pain management. Patient currently expresses no signs and symptoms of chest pain, shortness of breath, nvd, dizziness and or changes in vision. Non-neural focal exam, afebrile, all vitals fully within the patient baseline. As noted previously,patient is ambulatory with assistance of a person. Patient lungs present as clear upon auscultation. Benign abdominal exam. No new and or worsening lower extremity edema noted. Patient is CAOX4 with a GCS score of 15. [facility] Lin Cai consulted. Patient is informed of findings. Patient given 30 mg of of ketorlac via intramuscular right deltoid. Patient is informed to contact his primary Care at earliest convenience for follow-up as well as potential x-ray. Patient is educated on red flag signs and symptoms and told you call emergency services If any begin to present. IV_(FLUIDS_AND/OR_MEDICATION), MEDICATION_IM, ORAL_MEDICATION, EKG Written by Medical [facility] on 2025-04-21
--- OUTSIDE RECORDS SUMMARY | 2025-05-10 10:37 | XMS_ITS | Clinical Summary ---
Author Organization [facility] Address [address] [place] [address] Phone Care Team Providers Care Veterinary Technician Name Role Phone Jorge Luis Falk MD Primary Care Provider Allergies No known active allergies Medications clonazePAM (KlonoPIN) 1 mg tablet Take 1.5 mg by mouth 2 times daily. Active DULoxetine (CYMBALTA) [address] capsule TAKE 1 CAPSULE BY MOUTH DAILY 90 capsule 5 Active cholecalciferol (VITAMIN D-3) 50 mcg (2,000 unit) tablet Take 1 tablet (2,000 Units total) by mouth 1 (one) time each day. 90 tablet 3 5 Active cyclobenzaprine (FLEXERIL) 5 mg tabletIndicatio ns:Chronic left-sided low back pain with left-sided sciatica Take 1 tablet (5 mg total) by mouth 2 (two) times a day if needed for muscle spasms. 45 tablet 3 5 Active atorvastatin (LIPITOR) 20 mg tablet TAKE 1 TABLET(20 MG) BY MOUTH 1 TIME EACH DAY 90 tablet 5 Active carvediloL (COREG) 6.25 mg tablet TAKE 1/2 TABLET BY MOUTH TWICE DAILY WITH MEALS 90 tablet 1 5 Active acetaminophen (TYLENOL 8 HOUR) 650 mg 8 hr tablet Take 1 tablet (650 mg total) by mouth every 8 (eight) hours if needed for mild pain. for pain 90 tablet 3 5 Active albuterol HFA (PROAIR HFA ; PROVENTIL HFA ; VENTOLIN HFA) 90 mcg/actuation inhaler Inhale 2 puffs by mouth every 4 (four) hours if needed for wheezing. 6.7 g 3 5 Active aspirin 81 mg EC tablet Take 1 tablet (81 mg total) by mouth 1 (one) time each day. 90 tablet 3 5 Active budesonide-form oteroL (Symbicort) 80-4.5 mcg/actuation inhaler Inhale 2 puffs by mouth 2 (two) times a day. Rinse mouth with water after use to reduce aftertaste and incidence of candidiasis. Do not swallow. 1 each 4 5 Active sacubitriL-vals teresita (Entresto) 24-26 mg per tablet Take 1 tablet by mouth 2 (two) times a day. 180 tablet 1 5 Active gabapentin (NEURONTIN) 100 mg capsule Take 1 capsule (100 mg total) by mouth 3 (three) times a day. 90 capsule 4 5 Active lidocaine (LIDODERM) 5 % patchIndication s:Chronic right-sided low back pain with right-sided sciatica Apply 1 patch topically 1 (one) time each day. Apply to painful area 12 hours per day, remove for 12 hours. 30 each 3 5 Active oxyCODONE (ROXICODONE) 5 mg immediate release tabletIndicatio ns:Chronic left-sided low back pain with left-sided sciatica Take 1 tablet (5 mg total) by mouth 1 (one) time each day if needed for severe pain. Max Daily Amount: 5 mg 14 tablet 5 Active Active Problems Problem Noted Date Diagnosed Date Asthma-COPD overlap syndrome 04/12/2024 Chronic HFrEF (heart failure with reduced ejection fraction) 11/30/2023 Mixed hyperlipidemia 11/30/2023 HFrEF (heart failure with reduced ejection fract ion) 08/22/2023 Overview (04/12/2024): Last Assessment & Plan: [...] care. Obstructive sleep apnea 06/01/2018 Overview (04/12/2024): [facility] Home Polysomnogram: Date 05/29/2018; AHI 20, Unclassified [...] left hip 8 Allergic rhinitis 08/23/2017 Anxiety and depression 08/23/2017 Carpal tunnel syndrome, bilateral 08/23/2017 Chronic back pain 08/23/2017 Insomnia 08/23/2017 Overview (04/12/2024): F/u [place] Encounters Date Type Department Care Team Description 05/09/2025 Telephone Adult Medicine [address] [phone] Jorge Luis Falk MD 04/09/2025 2:45 PM EST Office Visit Adult Medicine [address] [phone] Jorge Luis Falk MD Chronic right-sided low back pain with right-sided sciatica (Primary Dx); Ataxia; Anxiety and depression; Asthma-COPD overlap syndrome ([facility] V24, [facility] V28); HFrEF (heart failure with reduced ejection fraction) ([facility] V24, [facility] V28); Mixed hyperlipidemia; Nummular eczema; Chronic left-sided low back pain with left-sided sciatica 04/09/2025 Telephone Adult Medicine [address] [phone] Jorge Luis Falk MD 02/08/2025 Telephone Adult Medicine [address] [phone] Jorge Luis Falk MD from Last 3 Months Immunizations Immunization Administration Dates Next Due Pfizer SARS-CoV-2 COVID-19, mRNA, LNP-S, preservative free 08/19/2020 Pneumococcal polysaccharide 23 valent (Pneumovax 23) 2yo and older 11/22/2022 Tdap Tetanus diptheria acell ular pertussis (Boostrix; Adacel) 7yo and older 12/09/2017 Surgical History Surgery Date Site/Laterality Comments BACK SURGERY 1990 PROCEDURE: HISTORICAL BACK SURGERY; COMMENT: Elma HERNIA REPAIR PROCEDURE: HISTORICAL HERNIA REPAIR/UMB BREAST [...] pain Insomnia 08/23/2017 DX:Insomnia; COM MENT: F/u [place] Anxiety 08/23/2017 DX:Anxiety Allergic rhinitis 08/23/2017 DX:Allergic rh initis Avascular 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 ([facility]/HCC V24, [facility] V28) 10/14/2017 DX:Avascular necrosis of zoraida ne of left hip (HCC) Hemorrhoids 12/09/2017 DX:Hemorrhoids Chronic hepatitis C without hepatic coma ([facility]/HCC V24, [facility] V28) 12/14/2017 DX:Chronic hepatitis C without hepatic coma (HCC) Vitamin D deficiency 05/05/2018 DX:Vitamin D deficiency Asthma DX:Asthma Hyperlipidemia DX:Hyperlipidemi a HFrEF (heart failure with re duced ejection fraction) (CMS/HCC V24, CMS/HCC V28) 08/22/2023 DX:HFrEF (heart failure with reduced ejection fraction) ([facility]) Family History Medical History Relation Name Comments [...] AM EST Sexual Orientation Not on file Last Filed Vital Signs Vital Sign Reading Time Taken Comments Blood Pressure 136/80 04/09/2025 2:48 PM EST Pulse 78 04/09/2025 2:18 PM EST Temperature 36 C (96.8 F) 04/09/2025 2:18 PM EST Respiratory Rate 14 10/16/2024 2:30 PM EDT Oxygen Saturation 98% 10/16/2024 2:30 PM EDT Inhaled Oxygen Concentration - - Weight 80.7 kg (178 lb) 10/16/2024 2:30 PM EDT Height 170.2 cm (5' 7 ) 04/09/2025 2:18 PM EST Body Mass Index 27.88 10/16/2024 2:30 PM EDT Plan of Treatment Health Maintenance Due Date Last Done Comments Colorectal Cancer Screening: Colonoscopy 1955 Drug Screen 1955 Naloxone Order 1955 Non-Opioid Controlled Substance Agreement 1955 Opioid Substance Agreement 1955 Pain Assessment 1955 RSV Immunization Adult Patients (1 - Risk 50-74 years 1-dose series) 2005 Zoster Vaccines (1 of 2) 2005 Social Influencers of Health Screening 04/25/2022 Pneumococcal Vaccine: 50+ Years (2 of 2 - PCV) 11/23/2023 11/22/2022 COVID-19 Vaccine (3 - 2024-2 6 season) 2025 08/19/2020, 07/29/2020 Influenza Vaccine (#1) 2025 Hypertension/CHF/CAD Annual BMP Blood Test 02/19/2025 02/20/2024, 02/20/2024, 12/16/2023 Medicare Annual Wellness Visit 03/02/2025 03/02/2024 Falls Risk Assessment 04/09/2026 04/09/2025 , 04/09/2025, 03/02/2024 Cholesterol Screening (Lipid Panel) 12/15/2028 12/16/2023, 12/16/2023 DTaP,Tdap,and Td Vaccines (3 - Td or Tdap) 07/08/2033 07/08/2023, 12/09/2017 Hepatitis C Screening Completed 12/19/2017 Depression Screening Completed 04/09/2025, 03/02/2024 HIB Vaccines Aged Out No longer eligi [...] Maintenance Results * Falls Risk Assessment (03/02/2024) Pathologist [facility] Falls Risk Assessment Abstracted [facility] Provider HEALTH MAINTENANCE Final Result * Depression Screening (03/02/2024) Pathologist [facility] Depression Screening Abstracted [facility] Provider HEALTH MAINTENANCE Final Result * Annual BMP Blood Test (02/20/2024) Pathologist [facility] Annual BMP Blood Test Abstracted [facility] Provider HEALTH MAINTENANCE Final Result * Lipid panel (12/16/2023) [facility] LDL/HDL Ratio 3 0 - 4 Triglycerides 84 0 - 150 mg/dL Cholesterol 189 0 - 200 mg/dL HDL 73 >=40 mg/dL LDL Cholesterol 100 0 - 100 mg/dL Blood Venous blood specimen / Unknown [facility] Provider LAB BLOOD ORDERABLES Wilma l Result * Hepatitis C Screening (12/19/2017) [facility] Hepatitis C Screening Abstracted [facility] Provider HEALTH MAINTENANCE Final Result from Last 3 Months or Most Recently Relevant to Health Maintenance Insurance [facility] [employer] Member Subscriber Plan / Payer (Ef fective 2023-Present) Name:Leandro Mcneil Relation to Subscriber:Self Name:Leandro Mcneil Payer ID:[id number] Group ID:[id number] Type:Not on file Address: [place] [address] [address] [id number] Care Teams Veterinary Technician Relationship Specialty Start Date End Date Jorge Luis Falk MD [address] [place] [address] PCP - General Internal Medicine 12/07/21
--- OUTSIDE RECORDS SUMMARY | 2025-05-10 10:37 | XMS_ITS | Continuity of Care Document ---
Author Name Jovi Rodriguez Address [address] [place] [id number] Organization Unknown Address [address] [place] [address] Medications No known medications Problems No known problems
--- OUTSIDE RECORDS SUMMARY | 2025-05-10 10:37 | XMS_ITS | Clinical Summary ---
Author Organization [employer] Address [address] [facility] [address] [place] [address] Care Team Providers Care Aircraft Structural Repair Mechanic Name Role Phone Unavailable Primary Care Provider [...] care. Obstructive sleep apnea 06/01/2018 Overview (08/30/2023): [facility] Home Polysomnogram: Date 05/29/2018; AHI [...] pain 08/23/2017 Insomnia 08/23/2017 Overview (08/30/2023): F/u [place] Encounters Date Type Department Care Team Description 05/02/2025 3:00 PM EST Office Visit [facility] [address] [place] [address] Boyer-Talbot, Estela, DDS Fracture of denture (Primary Dx) 05/01/2025 9:00 AM EST Office Visit [facility] [address] [place] [address] Boyer-Talbot, Estela, DDS Fracture of denture (Primary Dx) from Last 3 Months Social History Tobacco [...] Sign Reading Time Taken Comments Blood Pressure 120/80 05/02/2025 3:06 PM EST Pulse 64 05/02/2025 3:06 PM EST Temperature - - Respiratory Rate - - [...] of 2 - Risk 2-dose series) 1974 RSV Patients and Patients Aged 60 years or older (1 - Risk 50-74 years 1-dose series) 2005 Zoster Vaccines (1 of 2) 2005 Hepatitis B Vaccines (1 of 3 - Risk 3-dose series) 2015 Pneumococcal Vaccine: 50+ Years (2 of 2 - PCV) 11/23/2023 11/22/2022 COVID-19 Vaccine (3 - 2024-2 6 season) 2025 08/19/2020, 07/29/2020 Influenza Vaccine (#1) 2025 Tobacco Screening 05/02/2026 05/02/2025 DTaP/Tdap/Td Vaccines (3 - T d or [...] PRESENTATION, DETAILED AND EXTENSIVE TREATMENT PLANNING Routine 05/02/2025 3:00 PM EST Fracture of denture REPAIR RESIN PARTIAL DENTURE BASE, RACHEAL Routine 05/02/2025 3:00 PM EST Fracture of denture NO CHARGE VISIT Routine 05/01/2025 9:00 AM EST Fracture of denture from Last 3 Months Insurance [facility]
--- OUTSIDE RECORDS SUMMARY | 2025-05-10 10:37 | XMS_ITS | Encounter Summary ---
Author Organization [employer] Address [address] [facility] [address] [place] [address] Care Team Providers Care Bronc Breaker Name Role Phone Unavailable Primary Care Provider Unavailabl e Encounter Details Date Type Department Care Team (Late st Contact Info) Description 11/15/2022 Abstract [facility]ULT [facility] [address] [place] [address] Emmanuel Zazueta, DMD [address] [place] [address] Social History Tobacco Use Types Packs/Day Years [...]
--- OUTSIDE RECORDS SUMMARY | 2025-05-10 10:37 | XMS_ITS ---
Author Name [facility] Organization [facility] Care Team Organization Name Specialty Phone Email Start Date End Da te [facility] Primary Care 03/30/2022 4
--- OUTSIDE RECORDS SUMMARY | 2025-05-10 10:37 | XMS_ITS | Encounter Summary ---
Author Organization [employer] Address [address] [facility] [address] [place] [address] Care Team Providers Care Tafe Teacher Name Role Phone Unavailable Primary Care Provider Unavailabl e Encounter Details Date Type Department Care Team (Latest Contact Info) Description 04/03/2021 Abstract [facility] CONVERSIONS Dental, Provider, DDS Social History Tobacco [...]
--- OUTSIDE RECORDS SUMMARY | 2025-05-10 10:37 | XMS_ITS | Encounter Summary ---
Author Organization [facility] Address [address] [place] [address] Care Team Providers Care Photography Editor Name Role Phone Jorge Luis Falk MD Primary Care Provider [phone] Reason for Visit * Reason Onset Date Comments Fitting for DME 05/09/2025 Encounter Details Date Type Department Care Team ([facility] st Contact Info) Description 05/09/2025 Telephone Adult Medicine [facility] [address] [place] [address] Jorge Luis Falk MD [address] [place] [address] Social History Tobacco Use Types Packs/Day Years [...] as of this encounter Progress Notes * Madison Philip - 05/09/2025 10:27 AM EST DME REQUEST Name of Product: [employer] Bath Seat with Back, Chrom Bath Tub wall rail, walker rollator, seat for rollator, stander 5000, RTS w/arms Elongated [address] & Handheld shower Specific information about product # Needed 1, 2, 1, 1, 1, 1, & 1 Reason patient is asking for this supply? Have you received this supply before? If yes , when?: Have you discussed the need for this supply with a provider at a recent visit? If yes, with who andwhen? When completed: Fax to other office/MD/pharmacy at fax # [address] [phone] Who is requested? Is this a fax request? Have you told the patient it will take 7-10 days for completion of this request? No documented in this encounter Plan of Treatment Not on file documented as of this encounter Visit Diagnoses Not on filedocumented in this encounter Additional Health Concerns Assessment Noted Time PHQ-9 Depression Total Score: 13 025 2:22 PM EST A fall risk assessment has been complete d for the patient 04/09/2025 2:22 PM EST documented as of this encounter Care Teams Photography Editor Relationship Specialty Start Date End Date Jorge Luis Falk MD [address] [place] [address] PCP - General Internal Medicine 12/07/21 documented as of this encounter
--- OUTSIDE RECORDS SUMMARY | 2025-05-10 10:37 | XMS_ITS | Continuity of Care Document ---
Author Name [facility] Address [address] [place] [address] Organization Unknown Address [address] [place] [address] Medications No known medications Problems No known problems
--- OUTSIDE RECORDS SUMMARY | 2025-05-10 10:37 | XMS_ITS | Continuity of Care Document ---
Author Name [facility] Address [address] [place] [address] Organization Unknown Address [address] [place] [address] Medications No known medications Problems No known problems
== END 2025-05-10 10:15 | disposition home or self-care (01) ==
LOC: HO.PMC 09:46
PROVIDERS: PCP Internal Medicine; Visit Provider Registered Nurse Emergency
DX: M48.00 Spinal stenosis, site unspecified (principal); M54.9 Dorsalgia, unspecified; M96.1 Postlaminectomy syndrome, not elsewhere classified; M51.369 Other intervertebral disc degeneration, lumbar region without mention of lumbar back pain or lower extremity pain
CPT/HCPCS: 99213; G2211

== ENCOUNTER → 2025-05-10 09:45 | Outpatient (BNVA) | payer OTHER, SELFPAY | PROVIDERS: PCP Internal Medicine; Visit Provider Registered Nurse Emergency | DX: M51.369 Other intervertebral disc degeneration, lumbar region without mention of lumbar back pain or lower extremity pain (principal); M48.061 Spinal stenosis, lumbar region without neurogenic claudication; M96.1 Postlaminectomy syndrome, not elsewhere classified | CPT/HCPCS: 99212 ==